=== PATIENT | female | born 1960 | race Caucasian/White ===

== ENCOUNTER 2017-07-27 19:58 | Inpatient (IN) | payer MEDICARE, BC | END 2017-07-31 15:25 | disposition home or self-care (01) | DRG 640 | LOC: D.ER 19:58 → D.SDCHOLD 07-28 01:33 → D.M2 07-28 14:42 | DX: E87.70 Fluid overload, unspecified (principal); N18.6 End stage renal disease; I12.0 Hypertensive chronic kidney disease with stage 5 chronic kidney disease or end stage renal disease; N25.81 Secondary hyperparathyroidism of renal origin; L03.116 Cellulitis of left lower limb; L03.115 Cellulitis of right lower limb; E11.22 Type 2 diabetes mellitus with diabetic chronic kidney disease; Z99.2 Dependence on renal dialysis; E83.39 Other disorders of phosphorus metabolism; D63.1 Anemia in chronic kidney disease; E83.59 Other disorders of calcium metabolism ==

== ENCOUNTER 2017-08-07 22:01 | Inpatient (IN) | payer MEDICARE, BC, MEDICAID ==
[~2017-08-07] VITALS: Ht 160 cm; Wt 90.7 kg
--- NOTE | ~2017-08-07 | OP ---
PATIENT NAME: NADIRA PERDUE MEDICAL RECORD: [id number] :58 LOCATION:D.M2 D.9 ADMISSION DATE:08/08/17 SURGEON: LLUVIA SOW MD DATE OF OPERATION: 08/08/2017 PREOPERATIVE DIAGNOSES: 1. End-stage renal disease without chronic access for hemodialysis. 2. Chondrocalcinosis. 3. Hyperkalemia. POSTOPERATIVE DIAGNOSES: 1. End-stage renal disease without chronic access for hemodialysis. 2. Chondrocalcinosis. 3. Hyperkalemia. PROCEDURE: Insertion of right neck Trialysis catheter, which is a non-tunneled, non-cuffed hemodialysis catheter. SURGEON: Lluvia Sow MD PERSONAL LINES APPRAISER: None. BLOOD LOSS: Minimal. ANESTHESIA: Local. COMPLICATIONS: None. The risks, possible complications and alternatives to procedure were explained to the patient. She elects to proceed. The discussion specifically included, but was not limited to, bleeding requiring emergency reoperation, infection, great vessel injury as well as pneumothorax. OPERATIVE COURSE: The patient was seen in her room. The entire procedure was performed in the presence of a nurse. She was positioned in the Trendelenburg position. The right neck was sterilely prepped and draped. Local anesthetic was used to infiltrate the skin and subcutaneous tissues of the right neck. The right internal jugular vein was percutaneously accessed in an antegrade fashion. A guidewire passed easily. A small skin brigida was accomplished. A vessel dilator was used to dilate a subcutaneous tract. A 15-cm triple-lumen Trialysis catheter was inserted to the hub. It was sutured in place times 3. All lumens flushed easily and aspirated dark, nonpulsatile blood. A stat portable chest x-ray is pending. TRANSINT:[id number] Voice Confirmation ID: [id number] DOCUMENT ID: [id number] OPERATIVE REPORT [id number] IRONLLUVIA MOTTA MD at 1019 CC: SABIHA GASTON MD [id number] DICTATION DATE: 08/08/172020 COMMUNITY LIAISON: 08/08/177 ADM IN [facility] [address] [place] [address]
--- NOTE | ~2017-08-07 | OP ---
PATIENT NAME: NADIRA PERDUE MEDICAL RECORD: [id number] :58 LOCATION:D.M2 D.2139 ADMISSION DATE:08/08/17 SURGEON: PANCHITO EM MD DATE OF OPERATION: 08/14/2017 PREOPERATIVE DIAGNOSES: 1. Sepsis. 2. Possible line related sepsis. 3. End-stage renal disease. 4. Diabetes mellitus. 5. Calciphylaxis. 6. Decubitus ulcers. POSTOPERATIVE DIAGNOSES: 1. Sepsis. 2. Possible line related SEPSIS. 3. End-stage renal disease. 4. Diabetes mellitus. 5. Calciphylaxis. 6. Decubitus ulcers. PROCEDURE: 1. Removal of right IJ Trialysis catheter. 2. Placement of left IJ 12-1/2-cm Trialysis catheter. SURGEON: Panchito Em MD REPORT OF PROCEDURE: The patient's indwelling right IJ Trialysis catheter was removed and pressure was applied to the area. We then prepped and draped the left side of the neck. Using ultrasound guidance, a needle was used to inject of 5 mL of 1 cc to the surrounding tissues. Then, under ultrasound guidance, we were able to cannulate the left internal jugular vein and the guidewire was advanced over this wire and the dilators were placed followed by the Trialysis catheter. The catheter aspirated nonpulsatile dark blood and flushed easily in all 3 ports. This was sutured into place with 3-0 nylons and dressed appropriately. COMPLICATIONS: None. CONDITION: Stable. ANESTHESIA: Local. BLOOD LOSS: Minimal. Procedure done at the bedside. TRANSINT:[id number] Voice Confirmation ID: [id number] DOCUMENT ID: [id number] OPERATIVE REPORT [id number] IRONJEREMIAS ZHANGPANCHITO LUTHER MD at 1319 CC: [id number] DICTATION DATE: 08/14/17 1457 ART HISTORIAN: 08/14/17 1847 DIS IN 08/20/17 [id number] [place] [address]
[~2017-08-07 22:01] MED LIST: FERRIC CITRATE210 MG PO; FOSRENOL1000 MG PO; HUMALOG 30100 UNITS/ SC; HYDRALAZINE HCL50 MG PO; LANTUS SOL100 UNIT/1 SC; METOPROLOL-HCT1 EACH PO; ROCALTROL0.5 MCG PO; SENSIPAR30 MG PO; SYNTHROID25 MCG PO
[2017-08-07 23:17] LABS: BASOPHILS 0.2 % (0-2); EOSINOPHILS 1.8 % (0-7); HEMATOCRIT 35.5 % (36.0-48.0); HEMOGLOBIN 11.6 g/dL (12-16); IMMATURE GRANULOCYTES 0.7 % (0-5); LYMPHOCYTES 6.9 % (15-50); MCH 26.5 pg (26.0-34.0); MCHC 32.7 g/dL (31.0-37.0); MCV 81.1 fL (80.0-100.0); MONOCYTES 8.9 % (2-11); NEUTROPHILS 81.5 % (40-80); PLATELET COUNT 602 10x3/uL (130-400); RBC 4.38 10x6/uL (4.00-5.40); RDW 16.8 % (11.5-14.5); WBC 14.4 10x3/uL (4.8-10.8)
[2017-08-07 23:30] LABS: ALBUMIN 1.8 g/dL (3.4-5.0); ANION GAP 25.7 mmol/L (8-16); BILIRUBIN - TOTAL 0.3 mg/dL (0.2-1.3); CALCIUM 7.9 mg/dL (8.5-10.1); CREATININE - SERUM 12.9 mg/dL (0.6-1.3); POTASSIUM - SERUM 5.7 mmol/L (3.5-5.1); PROTEIN - SERUM 7.5 g/dL (6.4-8.2)
[2017-08-08] MEDS ORDERED: HYDROCODON-ACE1 EAC7 PO (02:34)
[2017-08-08 04:07] VITALS: BP 95/74; BMI 35.5
[2017-08-08 04:47] VITALS: BP 95/74
[2017-08-08 08:10] VITALS: BP 135/48
[2017-08-08 11:31] VITALS: BP 140/52
[2017-08-08 13:42] VITALS: BMI 35.4
[2017-08-08 15:34] VITALS: BP 113/78
[2017-08-08 19:00] VITALS: BP 229/77
[2017-08-09] VITALS: BP 118/78
[2017-08-09 04:00] VITALS: BP 207/74
[2017-08-09 06:15] LABS: HEMATOCRIT 34.4 % (36.0-48.0); HEMOGLOBIN 10.9 g/dL (12-16); MCH 26.4 pg (26.0-34.0); MCHC 31.7 g/dL (31.0-37.0); MCV 83.3 fL (80.0-100.0); MEAN PLATELET VOLUME 9.3 fL (7.4-10.4); PLATELET COUNT 610 10x3/uL (130-400); RBC 4.13 10x6/uL (4.00-5.40); RDW 17.2 % (11.5-14.5); WBC 21.7 10x3/uL (4.8-10.8)
[2017-08-09 06:47] LABS: ANION GAP 26.7 mmol/L (8-16); CALCIUM 8.2 mg/dL (8.5-10.1); CARBON DIOXIDE 22.2 mmol/L (21.0-32.0); CREATININE - SERUM 14.2 mg/dL (0.6-1.3); MAGNESIUM - SERUM 2.5 mg/dL (1.8-2.4); POTASSIUM - SERUM 5.9 mmol/L (3.5-5.1)
[2017-08-09 06:53] LABS: BASOPHILS 2 % (0-2); LYMPHOCYTES 10 % (15-50); MONOCYTES 5 % (2-11); NEUTROPHILS 80 % (40-80); PLATELET ESTIMATE INCREASED
[2017-08-09 06:54] LABS: PHOSPHOROUS 15.7 mg/dL (2.5-4.9)
[2017-08-09 08:24] VITALS: BP 118/52
[2017-08-09 13:58] LABS: ANION GAP 31.8 mmol/L (8-16); CALCIUM 8.1 mg/dL (8.5-10.1); CARBON DIOXIDE 18.2 mmol/L (21.0-32.0); CREATININE - SERUM 14.3 mg/dL (0.6-1.3)
[2017-08-09 14:02] LABS: ALBUMIN 1.8 g/dL (3.4-5.0); PHOSPHOROUS 15.9 mg/dL (2.5-4.9)
[2017-08-09 15:41] VITALS: BP 134/48
[2017-08-09 20:00] VITALS: BP 133/71
[2017-08-10] VITALS: BP 134/72
[2017-08-10 04:00] VITALS: BP 130/68
[2017-08-10 05:59] LABS: BASOPHILS 0.2 % (0-2); EOSINOPHILS 0.9 % (0-7); HEMATOCRIT 31.6 % (36.0-48.0); HEMOGLOBIN 9.5 g/dL (12-16); IMMATURE GRANULOCYTES 0.7 % (0-5); LYMPHOCYTES 6.5 % (15-50); MCH 25.8 pg (26.0-34.0); MCHC 30.1 g/dL (31.0-37.0); MCV 85.9 fL (80.0-100.0); MEAN PLATELET VOLUME 9.1 fL (7.4-10.4); MONOCYTES 8.9 % (2-11); NEUTROPHILS 82.8 % (40-80); PLATELET COUNT 491 10x3/uL (130-400); RBC 3.68 10x6/uL (4.00-5.40); RDW 17.3 % (11.5-14.5); WBC 22.2 10x3/uL (4.8-10.8)
[2017-08-10 06:26] LABS: ALBUMIN 1.4 g/dL (3.4-5.0); ANION GAP 20.6 mmol/L (8-16); BILIRUBIN - TOTAL 0.3 mg/dL (0.2-1.3); CALCIUM 7.3 mg/dL (8.5-10.1); POTASSIUM - SERUM 5.2 mmol/L (3.5-5.1); PROTEIN - SERUM 5.2 g/dL (6.4-8.2)
[2017-08-10 06:27] LABS: CARBON DIOXIDE 23.6 mmol/L (21.0-32.0); CREATININE - SERUM 8.3 mg/dL (0.6-1.3)
[2017-08-10 08:42] VITALS: BP 144/75
[2017-08-10 17:20] VITALS: BP 119/60
[2017-08-10 20:00] VITALS: BP 108/52
[2017-08-11 04:00] VITALS: BP 118/62
[2017-08-11 05:42] LABS: BASOPHILS 0.2 % (0-2); EOSINOPHILS 0.2 % (0-7); HEMATOCRIT 29.5 % (36.0-48.0); HEMOGLOBIN 8.7 g/dL (12-16); LYMPHOCYTES 8.3 % (15-50); MCH 25.6 pg (26.0-34.0); MCHC 29.5 g/dL (31.0-37.0); MCV 86.8 fL (80.0-100.0); MEAN PLATELET VOLUME 9.6 fL (7.4-10.4); MONOCYTES 7.5 % (2-11); NEUTROPHILS 82.8 % (40-80); PLATELET COUNT 454 10x3/uL (130-400); RDW 17.2 % (11.5-14.5); WBC 17.2 10x3/uL (4.8-10.8)
[2017-08-11 06:12] LABS: ANION GAP 17.3 mmol/L (8-16); CALCIUM 7.7 mg/dL (8.5-10.1); CARBON DIOXIDE 26.5 mmol/L (21.0-32.0); CREATININE - SERUM 5.5 mg/dL (0.6-1.3); PHOSPHOROUS 7.9 mg/dL (2.5-4.9); POTASSIUM - SERUM 4.8 mmol/L (3.5-5.1); VANCOMYCIN - RANDOM 18.3 ug/mL (10.0-20.0)
[2017-08-11 08:30] VITALS: BP 156/46
[2017-08-11 16:02] VITALS: BP 203/86
[2017-08-11 17:16] VITALS: BP 156/67
[2017-08-11 20:00] VITALS: BP 109/41
[2017-08-12] VITALS: BP 118/58
[2017-08-12 04:00] VITALS: BP 122/83
[2017-08-12 06:19] LABS: BASOPHILS 0.2 % (0-2); EOSINOPHILS 0.3 % (0-7); HEMATOCRIT 30.5 % (36.0-48.0); IMMATURE GRANULOCYTES 1.1 % (0-5); LYMPHOCYTES 7.3 % (15-50); MCH 25.6 pg (26.0-34.0); MCHC 29.5 g/dL (31.0-37.0); MCV 86.9 fL (80.0-100.0); MEAN PLATELET VOLUME 9.2 fL (7.4-10.4); MONOCYTES 9.1 % (2-11); PLATELET COUNT 484 10x3/uL (130-400); RBC 3.51 10x6/uL (4.00-5.40); RDW 17.2 % (11.5-14.5); WBC 19.5 10x3/uL (4.8-10.8)
[2017-08-12 06:44] LABS: % SATURATION 13 % (15-55); IRON 10 ug/dl (35-150); TOTAL IRON BIND CAPACITY 75 ug/dl (260-445); UNSAT IRON BIND CAPACITY 65 ug/dl (150-375)
[2017-08-12 07:09] LABS: ANION GAP 14.6 mmol/L (8-16); CALCIUM 8.4 mg/dL (8.5-10.1); CARBON DIOXIDE 26.5 mmol/L (21.0-32.0); CREATININE - SERUM 4.5 mg/dL (0.6-1.3); POTASSIUM - SERUM 4.1 mmol/L (3.5-5.1); VANCOMYCIN - RANDOM 29.3 ug/mL (10.0-20.0)
[2017-08-12 07:13] LABS: PHOSPHOROUS 5.9 mg/dL (2.5-4.9)
[2017-08-12 08:05] VITALS: BP 136/55
[2017-08-12 16:02] VITALS: BP 227/85
[2017-08-12 19:00] VITALS: BP 196/52
[2017-08-13] VITALS: BP 126/60
[2017-08-13 03:35] VITALS: BP 185/68
[2017-08-13 04:39] LABS: BASOPHILS 0.2 % (0-2); EOSINOPHILS 0.8 % (0-7); HEMATOCRIT 30.2 % (36.0-48.0); HEMOGLOBIN 9.1 g/dL (12-16); IMMATURE GRANULOCYTES 1.5 % (0-5); LYMPHOCYTES 9.4 % (15-50); MCH 25.6 pg (26.0-34.0); MCHC 30.1 g/dL (31.0-37.0); MCV 85.1 fL (80.0-100.0); MEAN PLATELET VOLUME 9.2 fL (7.4-10.4); MONOCYTES 10.9 % (2-11); NEUTROPHILS 77.2 % (40-80); PLATELET COUNT 426 10x3/uL (130-400); RBC 3.55 10x6/uL (4.00-5.40); RDW 17.1 % (11.5-14.5)
[2017-08-13 05:09] LABS: ANION GAP 18.5 mmol/L (8-16); CALCIUM 8.3 mg/dL (8.5-10.1); CARBON DIOXIDE 25.1 mmol/L (21.0-32.0); CREATININE - SERUM 3.8 mg/dL (0.6-1.3); PHOSPHOROUS 4.5 mg/dL (2.5-4.9); POTASSIUM - SERUM 3.6 mmol/L (3.5-5.1); VANCOMYCIN - RANDOM 20.1 ug/mL (10.0-20.0)
[2017-08-13 07:59] VITALS: BP 122/90
[2017-08-13 11:12] VITALS: BP 175/63
[2017-08-13 15:11] VITALS: BP 140/56
[2017-08-14] VITALS: BP 166/64
[2017-08-14 04:00] VITALS: BP 164/78
[2017-08-14 06:24] LABS: BASOPHILS 0.2 % (0-2); EOSINOPHILS 0.6 % (0-7); HEMATOCRIT 31.6 % (36.0-48.0); HEMOGLOBIN 9.4 g/dL (12-16); IMMATURE GRANULOCYTES 1.9 % (0-5); MCH 25.5 pg (26.0-34.0); MCHC 29.7 g/dL (31.0-37.0); MCV 85.9 fL (80.0-100.0); MEAN PLATELET VOLUME 9.4 fL (7.4-10.4); MONOCYTES 13.2 % (2-11); NEUTROPHILS 71.1 % (40-80); PLATELET COUNT 454 10x3/uL (130-400); RBC 3.68 10x6/uL (4.00-5.40); RDW 17.2 % (11.5-14.5); WBC 11.9 10x3/uL (4.8-10.8)
[2017-08-14 06:37] LABS: ANION GAP 16.8 mmol/L (8-16); BILIRUBIN - DIRECT 0.21 mg/dL (0.00-0.30); BILIRUBIN - INDIRECT 0.25 mg/dL (0.00-1.00); BILIRUBIN - TOTAL 0.46 mg/dL (0.2-1.3); CALCIUM 8.2 mg/dL (8.5-10.1); CARBON DIOXIDE 26.6 mmol/L (21.0-32.0); CREATININE - SERUM 3.6 mg/dL (0.6-1.3); PHOSPHOROUS 4.6 mg/dL (2.5-4.9); POTASSIUM - SERUM 3.4 mmol/L (3.5-5.1); PROTEIN - SERUM 6.7 g/dL (6.4-8.2); VANCOMYCIN - RANDOM 16.1 ug/mL (10.0-20.0)
[2017-08-14 06:40] LABS: ALBUMIN 1.2 g/dL (3.4-5.0)
[2017-08-14 08:53] VITALS: BP 227/80
[2017-08-14 09:44] VITALS: Ht 160 cm; Wt 90.7 kg
[2017-08-14 11:54] LABS: APPEARANCE HAZY (CLEAR); BILIRUBIN NEGATIVE (NEGATIVE); COLOR YELLOW (YELLOW); GLUCOSE 250 mg/dL (NEGATIVE); KETONE NEGATIVE (NEGATIVE); NITRITE NEGATIVE (NEGATIVE); PROTEIN 3+ mg/dL (NEGATIVE); SPECIFIC GRAVITY 1.015 (1.005-1.020); UROBILINOGEN NORMAL (NORMAL)
[2017-08-14 11:55] LABS: AMORPHOUS SEDIMENT <1+ /lpf (NONE SEEN); BACTERIA MODERATE /hpf (NONE SEEN); EPITHELIAL CELLS OCC /hpf (0-5); MUCUS <1+ /lpf (NONE SEEN); WHITE CELLS - URINE 0-5 /hpf (0-5)
[2017-08-14 13:36] VITALS: BP 178/70
[2017-08-14 16:27] VITALS: BP 93/49
[2017-08-14 20:00] VITALS: BP 168/67
[2017-08-15] VITALS: BP 211/76
[2017-08-15 04:00] VITALS: BP 161/64
[2017-08-15 06:20] LABS: BASOPHILS 0.3 % (0-2); EOSINOPHILS 0.6 % (0-7); HEMATOCRIT 29.5 % (36.0-48.0); HEMOGLOBIN 8.9 g/dL (12-16); LYMPHOCYTES 15.2 % (15-50); MCHC 30.2 g/dL (31.0-37.0); MCV 86.3 fL (80.0-100.0); MEAN PLATELET VOLUME 9.4 fL (7.4-10.4); NEUTROPHILS 69.9 % (40-80); PLATELET COUNT 419 10x3/uL (130-400); RBC 3.42 10x6/uL (4.00-5.40); RDW 17.4 % (11.5-14.5); WBC 11.4 10x3/uL (4.8-10.8)
[2017-08-15 06:23] LABS: ANION GAP 19.4 mmol/L (8-16); CALCIUM 7.6 mg/dL (8.5-10.1); CARBON DIOXIDE 24.2 mmol/L (21.0-32.0); CREATININE - SERUM 5.2 mg/dL (0.6-1.3); PHOSPHOROUS 5.6 mg/dL (2.5-4.9); POTASSIUM - SERUM 3.6 mmol/L (3.5-5.1); VANCOMYCIN - RANDOM 30.4 ug/mL (10.0-20.0)
[2017-08-15 07:45] VITALS: BP 176/74
[2017-08-15 11:03] VITALS: BP 176/74
[2017-08-15 14:58] VITALS: BP 164/78
[2017-08-15 21:40] VITALS: BP 155/57
[2017-08-16 00:47] VITALS: BP 164/67
[2017-08-16 06:44] VITALS: BP 169/67
[2017-08-16 08:11] VITALS: BP 110/64
[2017-08-16 09:26] LABS: BASOPHILS 0.2 % (0-2); EOSINOPHILS 0.6 % (0-7); HEMATOCRIT 30.6 % (36.0-48.0); HEMOGLOBIN 9.2 g/dL (12-16); IMMATURE GRANULOCYTES 1.7 % (0-5); LYMPHOCYTES 15.8 % (15-50); MCH 25.9 pg (26.0-34.0); MCHC 30.1 g/dL (31.0-37.0); MCV 86.2 fL (80.0-100.0); MEAN PLATELET VOLUME 9.6 fL (7.4-10.4); MONOCYTES 10.6 % (2-11); NEUTROPHILS 71.1 % (40-80); PLATELET COUNT 394 10x3/uL (130-400); RBC 3.55 10x6/uL (4.00-5.40); WBC 11.5 10x3/uL (4.8-10.8)
[2017-08-16 09:36] LABS: ANION GAP 18.8 mmol/L (8-16); CALCIUM 7.4 mg/dL (8.5-10.1); CARBON DIOXIDE 23.6 mmol/L (21.0-32.0); CREATININE - SERUM 4.9 mg/dL (0.6-1.3); POTASSIUM - SERUM 3.4 mmol/L (3.5-5.1)
[2017-08-16 11:26] VITALS: BP 118/68
[2017-08-16 16:53] VITALS: BP 150/66
[2017-08-17 06:00] VITALS: BP 126/68
[2017-08-17 06:58] LABS: BASOPHILS 0.2 % (0-2); EOSINOPHILS 0.6 % (0-7); HEMATOCRIT 32.9 % (36.0-48.0); HEMOGLOBIN 9.9 g/dL (12-16); IMMATURE GRANULOCYTES 1.3 % (0-5); LYMPHOCYTES 12.9 % (15-50); MCH 25.6 pg (26.0-34.0); MCHC 30.1 g/dL (31.0-37.0); MEAN PLATELET VOLUME 10.1 fL (7.4-10.4); MONOCYTES 9.5 % (2-11); NEUTROPHILS 75.5 % (40-80); PLATELET COUNT 448 10x3/uL (130-400); RBC 3.87 10x6/uL (4.00-5.40); RDW 17.4 % (11.5-14.5); WBC 13.8 10x3/uL (4.8-10.8)
[2017-08-17 07:10] LABS: CALCIUM 7.7 mg/dL (8.5-10.1); CARBON DIOXIDE 23.5 mmol/L (21.0-32.0); POTASSIUM - SERUM 3.5 mmol/L (3.5-5.1)
[2017-08-17 07:16] LABS: CREATININE - SERUM 6.3 mg/dL (0.6-1.3)
[2017-08-17 07:50] VITALS: BP 181/82
[2017-08-17 08:29] VITALS: BP 181/82
[2017-08-17 15:11] VITALS: BP 183/80
[2017-08-17 20:00] VITALS: BP 226/61
[2017-08-18] VITALS (8 sets, daily range): BP systolic 100–202; BP diastolic 57–80
[2017-08-18 08:17] LABS: BASOPHILS 0.1 % (0-2); EOSINOPHILS 0.1 % (0-7); HEMATOCRIT 29.7 % (36.0-48.0); HEMOGLOBIN 8.9 g/dL (12-16); IMMATURE GRANULOCYTES 0.7 % (0-5); LYMPHOCYTES 8.9 % (15-50); MCH 25.6 pg (26.0-34.0); MCV 85.6 fL (80.0-100.0); MONOCYTES 6.4 % (2-11); NEUTROPHILS 83.8 % (40-80); PLATELET COUNT 451 10x3/uL (130-400); RBC 3.47 10x6/uL (4.00-5.40); RDW 17.6 % (11.5-14.5)
[2017-08-18 08:18] LABS: WBC 17.7 10x3/uL (4.8-10.8)
[2017-08-18 08:31] LABS: ANION GAP 21.8 mmol/L (8-16); CALCIUM 7.8 mg/dL (8.5-10.1); CARBON DIOXIDE 22.7 mmol/L (21.0-32.0); CREATININE - SERUM 5.5 mg/dL (0.6-1.3); PHOSPHOROUS 6.5 mg/dL (2.5-4.9); POTASSIUM - SERUM 3.5 mmol/L (3.5-5.1); VANCOMYCIN - RANDOM 30.2 ug/mL (10.0-20.0)
[2017-08-19] VITALS: BP 148/66
[2017-08-19 04:00] VITALS: BP 156/59
[2017-08-19 06:31] LABS: BASOPHILS 0.1 % (0-2); EOSINOPHILS 0.9 % (0-7); IMMATURE GRANULOCYTES 0.7 % (0-5); LYMPHOCYTES 10.2 % (15-50); MCH 25.6 pg (26.0-34.0); MCV 85.2 fL (80.0-100.0); MEAN PLATELET VOLUME 9.5 fL (7.4-10.4); MONOCYTES 6.3 % (2-11); NEUTROPHILS 81.8 % (40-80); PLATELET COUNT 415 10x3/uL (130-400); RBC 3.52 10x6/uL (4.00-5.40); RDW 17.5 % (11.5-14.5); WBC 19.4 10x3/uL (4.8-10.8)
[2017-08-19 06:56] LABS: ALBUMIN 1.8 g/dL (3.4-5.0); ANION GAP 21.5 mmol/L (8-16); BILIRUBIN - DIRECT 0.23 mg/dL (0.00-0.30); BILIRUBIN - INDIRECT 0.37 mg/dL (0.00-1.00); BILIRUBIN - TOTAL 0.6 mg/dL (0.2-1.3); CREATININE - SERUM 6.5 mg/dL (0.6-1.3); PHOSPHOROUS 6.5 mg/dL (2.5-4.9); POTASSIUM - SERUM 3.5 mmol/L (3.5-5.1); PROTEIN - SERUM 6.7 g/dL (6.4-8.2)
[2017-08-19 08:37] VITALS: BP 166/74
[2017-08-19 16:35] VITALS: BP 168/75
[2017-08-19 21:41] VITALS: BP 158/61
[2017-08-20 00:41] VITALS: BP 118/64
[2017-08-20 05:32] VITALS: BP 165/64
[2017-08-20 06:43] LABS: BASOPHILS 0.2 % (0-2); EOSINOPHILS 0.8 % (0-7); HEMATOCRIT 29.4 % (36.0-48.0); HEMOGLOBIN 8.9 g/dL (12-16); LYMPHOCYTES 9.6 % (15-50); MCH 25.4 pg (26.0-34.0); MCHC 30.3 g/dL (31.0-37.0); MONOCYTES 6.8 % (2-11); NEUTROPHILS 81.6 % (40-80); PLATELET COUNT 386 10x3/uL (130-400); RDW 17.4 % (11.5-14.5); WBC 19.8 10x3/uL (4.8-10.8)
[2017-08-20 07:06] LABS: ANION GAP 23.1 mmol/L (8-16); CARBON DIOXIDE 21.5 mmol/L (21.0-32.0); CREATININE - SERUM 7.3 mg/dL (0.6-1.3); PHOSPHOROUS 5.5 mg/dL (2.5-4.9); POTASSIUM - SERUM 3.6 mmol/L (3.5-5.1); VANCOMYCIN - RANDOM 22.5 ug/mL (10.0-20.0)
[2017-08-20 07:33] VITALS: BP 122/68
[2017-08-20] MEDS ORDERED: BENADRYL INJ50 MG/ML IV (11:02)
[2017-08-20] MEDS ORDERED: VANCOMYCIN250 MG/51 PO (11:03)
[2017-08-20] MEDS ORDERED: PROCRIT/EP10000 UNIT SC (11:03)
[2017-08-20] MEDS ORDERED: BUMINATE50 ML IV (11:03)
[2017-08-20] MEDS ORDERED: LOVENOX60 MG/0.6 SC (11:03)
[2017-08-20] MEDS ORDERED: DIFLUCAN100 MG PO (11:03)
[2017-08-20] MEDS ORDERED: FLAGYL250 MG PO (11:03)
[2017-08-20] MEDS ORDERED: HEPARIN SO1000 UNIT/ INJ (11:04)
[2017-08-20] MEDS ORDERED: HEPARIN SO1000 UNIT/ IV (11:04)
[2017-08-20] MEDS ORDERED: HYDROCODONE-APA1 TAB PO (11:05)
[2017-08-20] MEDS ORDERED: ACETAMINOPHEN325 MG PO (11:05)
[2017-08-20] MEDS ORDERED: NALOXONE HC0.4 MG/M2 IV (11:06)
[2017-08-20] MEDS ORDERED: RENVELA2.4 GM PO (11:06)
[2017-08-20] MEDS ORDERED: FLORAJEN3 CAPS460 MG PO (11:06)
[2017-08-20] MEDS ORDERED: LOPERAMIDE HCL2 MG PO (11:06)
[2017-08-20] MEDS ORDERED: ONDANSETRON4 MG/2 M3 IV (11:06)
[2017-08-20] MEDS ORDERED: LANTUS INSULIN10 ML SC (11:07)
[2017-08-20] MEDS ORDERED: HUMALOG 30100 UNITS/ SC (11:07)
[2017-08-20] MEDS ORDERED: SENSIPAR30 MG PO (11:09)
[2017-08-20] MEDS ORDERED: NEPHRO-VITE RX1 TAB PO (11:09)
[2017-08-20] MEDS ORDERED: SODIUM THIOSULFATE IV (11:09)
[2017-08-20] MEDS ORDERED: CALMOSEPTINE OI71 GM TOPICAL (11:09)
[2017-08-20] MEDS ORDERED: MYCELEX TROCHE10 MG MM (11:09)
[2017-08-20 11:31] VITALS: BP 185/80
[2017-08-20 15:56] VITALS: BP 173/76
== END 2017-08-20 17:40 | disposition short-term general hospital (02) | DRG 682 ==
LOC: D.ER 22:01 → D.M2 08-08 01:17
PROVIDERS: Emergency Medicine; Internal Medicine Nephrology; Physician Assistant
PROC: 05HM33Z Insertion of Infusion Device into Right Internal Jugular Vein, Percutaneous Approach (ICD-10-PCS; principal; 2017-08-08)
PROC: 05PY3YZ Removal of Other Device from Upper Vein, Percutaneous Approach (ICD-10-PCS; 2017-08-14)
PROC: 05HN33Z Insertion of Infusion Device into Left Internal Jugular Vein, Percutaneous Approach (ICD-10-PCS; 2017-08-14)
DX: I12.0 Hypertensive chronic kidney disease with stage 5 chronic kidney disease or end stage renal disease (principal); N18.6 End stage renal disease; M80.052A Age-related osteoporosis with current pathological fracture, left femur, initial encounter for fracture; M80.062A Age-related osteoporosis with current pathological fracture, left lower leg, initial encounter for fracture; A04.72 Enterocolitis due to Clostridium difficile, not specified as recurrent; L03.116 Cellulitis of left lower limb; L03.115 Cellulitis of right lower limb; E11.22 Type 2 diabetes mellitus with diabetic chronic kidney disease; E87.5 Hyperkalemia; N28.89 Other specified disorders of kidney and ureter; E83.59 Other disorders of calcium metabolism

== ENCOUNTER 2017-09-27 03:34 | Inpatient (IN) | payer MEDICARE, BC, MEDICAID ==
[~2017-09-27] VITALS: Ht 160 cm; Wt 101.8 kg
--- NOTE | ~2017-09-27 | CN ---
PATIENT NAME:NADIRA PERDUE MEDICAL RECORD: [id number] : 58 LOCATION:D.M2 D.2121 ADMIT DATE: 09/27/17 ACCOUNT: [id number] CONSULTING PHYSICIAN: LLUVIA SOW MD REFERRING PHYSICIAN: GIA MACKENZIE MD DATE OF CONSULTATION: 09/27/2017 CONSULTATION NOTE ADDENDUM CHIEF COMPLAINT: Pain. HISTORY OF PRESENT ILLNESS: I saw this patient when she was in the hospital last time. The patient has calciphylaxis and has large areas of calcium deposits involving the lower abdomen, buttocks as well as both lower extremities. She developed some bleeding from the calf. The patient has now developed large eschars overlying the calcium deposits. I believe that debridement would be counterproductive and would likely lead to more bleeding. I would recommend local wound care. The patient has been seen by Dr. Terese carr at the [facility] in the wound care center. Palpation aggravates. Nothing alleviates. She describes her symptoms as severe. For the typed portion of the consult note, please see the chart. The typed portion of the consult note would include the past medical and surgical history, current medications, allergies, social history as well as family history. REVIEW OF SYSTEMS: No nausea, no vomiting, no fever, no chills. Positive for lower abdominal pain. Positive for lower extremity pain. Positive for drainage. PHYSICAL EXAMINATION: GENERAL: The patient appears acutely ill. Also appears chronically ill. VITAL SIGNS: Reviewed. EARS: External ears appear normal. EYES: Extraocular movements are intact. NECK: Trachea is midline. CHEST: No intercostal retractions. PULMONARY: Nonlabored, no stridor. ABDOMEN: No peritonitis with movement. EXTREMITIES: No peripheral cyanosis. Draining wounds as described above. INTEGUMENT: Draining wounds. Multiple large eschars overlying the areas of calciphylaxis. BACK: No thoracic kyphosis. IMPRESSION: Draining wound in a patient with large calcium deposits due to calciphylaxis. PLAN: I would recommend no debridement at this time. TRANSINT:[id number] Voice Confirmation ID: [id number] DOCUMENT ID: [id number] CONSULT REPORT [id number] NADIRA PERDUE ROBERT MD at 2254 CC: [id number] DICTATION DATE: 09/29/17 4916 CONVEYOR CONSOLE OPERATOR: 09/29/172034 DIS IN 10/04/17 [facility] [address] [place] [address]
[~2017-09-27 03:34] MED LIST changes: +ACETAMINOPHEN325 MG PO; +BENADRYL INJ50 MG/ML IV; +BUMINATE50 ML IV; +CALMOSEPTINE OI71 GM TOPICAL; +DIFLUCAN100 MG PO; +FLAGYL250 MG PO; +FLORAJEN3 CAPS460 MG PO; +HEPARIN SO1000 UNIT/ INJ; +HEPARIN SO1000 UNIT/ IV; +HYDROCODON-ACE1 EAC7 PO; +HYDROCODONE-APA1 TAB PO; +LANTUS INSULIN10 ML SC; +LOPERAMIDE HCL2 MG PO; +LOVENOX60 MG/0.6 SC; +MYCELEX TROCHE10 MG MM; +NALOXONE HC0.4 MG/M2 IV; +NEPHRO-VITE RX1 TAB PO; +ONDANSETRON4 MG/2 M3 IV; +PROCRIT/EP10000 UNIT SC; +RENVELA2.4 GM PO; +SODIUM THIOSULFATE IV; +VANCOMYCIN250 MG/51 PO
[2017-09-27 04:24] LABS: BASOPHILS 0.2 % (0-2); EOSINOPHILS 0.8 % (0-7); HEMATOCRIT 24.1 % (36.0-48.0); HEMOGLOBIN 7.9 g/dL (12-16); IMMATURE GRANULOCYTES 3.9 % (0-5); LYMPHOCYTES 11.3 % (15-50); MCH 27.2 pg (26.0-34.0); MCHC 32.8 g/dL (31.0-37.0); MCV 83.1 fL (80.0-100.0); MEAN PLATELET VOLUME 9.4 fL (7.4-10.4); MONOCYTES 7.8 % (2-11); PLATELET COUNT 449 10x3/uL (130-400); RDW 18.4 % (11.5-14.5); WBC 18.1 10x3/uL (4.8-10.8)
[2017-09-27 04:36] LABS: INR 1.43 (0.85-1.17)
[2017-09-27 04:43] LABS: ALBUMIN 1.3 g/dL (3.4-5.0); ANION GAP 20.6 mmol/L (8-16); BILIRUBIN - TOTAL 0.82 mg/dL (0.2-1.3); CARBON DIOXIDE 21.9 mmol/L (21.0-32.0); CREATININE - SERUM 4.8 mg/dL (0.6-1.3); POTASSIUM - SERUM 5.5 mmol/L (3.5-5.1); PROTEIN - SERUM 6.2 g/dL (6.4-8.2)
[2017-09-27 04:45] LABS: CALCIUM 6.3 mg/dL (8.5-10.1)
[2017-09-27 08:37] VITALS: BP 140/65
[2017-09-27 12:00] VITALS: BP 131/68
[2017-09-27 15:37] VITALS: BP 116/62
[2017-09-27 20:00] VITALS: BP 156/62
[2017-09-28] VITALS: BP 151/69
[2017-09-28 04:00] VITALS: BP 149/50
[2017-09-28 06:09] LABS: BASOPHILS 0.3 % (0-2); EOSINOPHILS 0.8 % (0-7); HEMATOCRIT 21.9 % (36.0-48.0); LYMPHOCYTES 13.6 % (15-50); MCH 27.1 pg (26.0-34.0); MCV 84.9 fL (80.0-100.0); MEAN PLATELET VOLUME 9.8 fL (7.4-10.4); MONOCYTES 8.2 % (2-11); NEUTROPHILS 73.1 % (40-80); PLATELET COUNT 467 10x3/uL (130-400); RBC 2.58 10x6/uL (4.00-5.40); RDW 18.4 % (11.5-14.5); WBC 16.9 10x3/uL (4.8-10.8)
[2017-09-28 06:39] LABS: ALBUMIN 1.2 g/dL (3.4-5.0); ANION GAP 21.3 mmol/L (8-16); BILIRUBIN - TOTAL 0.75 mg/dL (0.2-1.3); CARBON DIOXIDE 21.2 mmol/L (21.0-32.0); CREATININE - SERUM 5.9 mg/dL (0.6-1.3); MAGNESIUM - SERUM 2.9 mg/dL (1.8-2.4); PHOSPHOROUS 5.7 mg/dL (2.5-4.9); POTASSIUM - SERUM 5.5 mmol/L (3.5-5.1); PROTEIN - SERUM 5.8 g/dL (6.4-8.2)
[2017-09-28 06:45] LABS: CALCIUM 6.1 mg/dL (8.5-10.1)
[2017-09-28 08:25] VITALS: BP 102/57
[2017-09-28 11:02] VITALS: BP 132/69
[2017-09-28 13:33] VITALS: Ht 160 cm; Wt 101.8 kg
[2017-09-28 16:23] VITALS: BP 136/74
[2017-09-28 19:00] VITALS: BP 110/65
[2017-09-29] VITALS: BP 129/93
[2017-09-29 04:00] VITALS: BP 98/62
[2017-09-29 05:18] LABS: BASOPHILS 0.3 % (0-2); EOSINOPHILS 0.3 % (0-7); IMMATURE GRANULOCYTES 3.2 % (0-5); LYMPHOCYTES 13.5 % (15-50); MCH 28.4 pg (26.0-34.0); MCHC 33.1 g/dL (31.0-37.0); MCV 85.9 fL (80.0-100.0); MEAN PLATELET VOLUME 10.3 fL (7.4-10.4); MONOCYTES 7.9 % (2-11); NEUTROPHILS 74.8 % (40-80); PLATELET COUNT 450 10x3/uL (130-400); RDW 17.3 % (11.5-14.5); WBC 19.7 10x3/uL (4.8-10.8)
[2017-09-29 05:21] LABS: HEMATOCRIT 28.1 % (36.0-48.0); HEMOGLOBIN 9.3 g/dL (12-16); RBC 3.27 10x6/uL (4.00-5.40)
[2017-09-29 05:38] LABS: % SATURATION 17 % (15-55); IRON 14 ug/dl (35-150); TOTAL IRON BIND CAPACITY 82 ug/dl (260-445); UNSAT IRON BIND CAPACITY 68 ug/dl (150-375)
[2017-09-29 05:49] LABS: CARBON DIOXIDE 22.9 mmol/L (21.0-32.0); PHOSPHOROUS 4.8 mg/dL (2.5-4.9)
[2017-09-29 06:06] LABS: ANION GAP 17.4 mmol/L (8-16); CALCIUM 6.9 mg/dL (8.5-10.1); CREATININE - SERUM 4.4 mg/dL (0.6-1.3); POTASSIUM - SERUM 4.3 mmol/L (3.5-5.1)
[2017-09-29 08:07] VITALS: BP 164/71
[2017-09-29 10:46] VITALS: BP 150/73
[2017-09-29 15:33] VITALS: BP 161/78
[2017-09-29 20:00] VITALS: BP 109/67
[2017-09-30 04:00] VITALS: BP 144/75
[2017-09-30 05:51] LABS: BASOPHILS 0.2 % (0-2); EOSINOPHILS 0.7 % (0-7); HEMATOCRIT 24.7 % (36.0-48.0); HEMOGLOBIN 8.2 g/dL (12-16); IMMATURE GRANULOCYTES 3.3 % (0-5); MCH 28.3 pg (26.0-34.0); MCHC 33.2 g/dL (31.0-37.0); MCV 85.2 fL (80.0-100.0); MEAN PLATELET VOLUME 10.1 fL (7.4-10.4); MONOCYTES 7.8 % (2-11); PLATELET COUNT 448 10x3/uL (130-400); RDW 17.5 % (11.5-14.5); WBC 18.1 10x3/uL (4.8-10.8)
[2017-09-30 06:20] LABS: ANION GAP 21.8 mmol/L (8-16); CARBON DIOXIDE 22.6 mmol/L (21.0-32.0); CREATININE - SERUM 5.5 mg/dL (0.6-1.3); PHOSPHOROUS 5.5 mg/dL (2.5-4.9); POTASSIUM - SERUM 4.4 mmol/L (3.5-5.1)
[2017-09-30 06:28] LABS: CALCIUM 6.5 mg/dL (8.5-10.1)
[2017-09-30 08:29] VITALS: BP 119/57
[2017-09-30] MEDS ORDERED: LYRICA75 MG PO (09:13)
[2017-09-30 12:24] LABS: APPEARANCE CLOUDY (CLEAR); BILIRUBIN NEGATIVE (NEGATIVE); COLOR YELLOW (YELLOW); GLUCOSE NEGATIVE (NEGATIVE); KETONE NEGATIVE (NEGATIVE); NITRITE NEGATIVE (NEGATIVE); PROTEIN 1+ mg/dL (NEGATIVE); RED CELLS - URINE 0-5 /hpf (0-5); UROBILINOGEN NORMAL (NORMAL); WHITE CELLS - URINE >50 /hpf (0-5)
[2017-09-30 12:25] LABS: BACTERIA MANY /hpf (NONE SEEN); EPITHELIAL CELLS RARE /hpf (0-5); MUCUS <1+ /lpf (NONE SEEN)
[2017-09-30 18:39] VITALS: BP 162/61
[2017-09-30 19:00] VITALS: BP 140/74
[2017-10-01 04:00] VITALS: BP 152/85
[2017-10-01 06:28] LABS: BASOPHILS 0.3 % (0-2); EOSINOPHILS 0.9 % (0-7); HEMOGLOBIN 9.8 g/dL (12-16); IMMATURE GRANULOCYTES 1.7 % (0-5); LYMPHOCYTES 11.6 % (15-50); MCH 28.2 pg (26.0-34.0); MCHC 32.8 g/dL (31.0-37.0); MCV 85.9 fL (80.0-100.0); MEAN PLATELET VOLUME 10.2 fL (7.4-10.4); NEUTROPHILS 78.5 % (40-80); PLATELET COUNT 470 10x3/uL (130-400); RBC 3.48 10x6/uL (4.00-5.40); RDW 17.9 % (11.5-14.5); WBC 19.7 10x3/uL (4.8-10.8)
[2017-10-01 06:37] LABS: HEMATOCRIT 29.9 % (36.0-48.0)
[2017-10-01 06:54] LABS: ANION GAP 17.3 mmol/L (8-16); CALCIUM 7.4 mg/dL (8.5-10.1); CARBON DIOXIDE 26.1 mmol/L (21.0-32.0); PHOSPHOROUS 4.4 mg/dL (2.5-4.9); VANCOMYCIN - RANDOM 17.1 ug/mL (10.0-20.0)
[2017-10-01 07:07] LABS: CREATININE - SERUM 4.1 mg/dL (0.6-1.3); POTASSIUM - SERUM 3.4 mmol/L (3.5-5.1)
[2017-10-01 08:36] VITALS: BP 168/66
[2017-10-01 11:52] VITALS: BP 170/64
[2017-10-01 15:40] VITALS: BP 137/44
[2017-10-01 20:00] VITALS: BP 176/66
[2017-10-02] VITALS: BP 178/71
[2017-10-02 05:31] LABS: BASOPHILS 0.3 % (0-2); EOSINOPHILS 1.3 % (0-7); HEMATOCRIT 27.1 % (36.0-48.0); HEMOGLOBIN 8.8 g/dL (12-16); IMMATURE GRANULOCYTES 2.8 % (0-5); LYMPHOCYTES 13.6 % (15-50); MCH 27.8 pg (26.0-34.0); MCHC 32.5 g/dL (31.0-37.0); MCV 85.5 fL (80.0-100.0); MEAN PLATELET VOLUME 9.8 fL (7.4-10.4); MONOCYTES 7.3 % (2-11); NEUTROPHILS 74.7 % (40-80); PLATELET COUNT 471 10x3/uL (130-400); RBC 3.17 10x6/uL (4.00-5.40); RDW 17.7 % (11.5-14.5); WBC 18.6 10x3/uL (4.8-10.8)
[2017-10-02 05:50] VITALS: BP 136/53
[2017-10-02 05:52] LABS: ANION GAP 18.9 mmol/L (8-16); CARBON DIOXIDE 24.6 mmol/L (21.0-32.0); PHOSPHOROUS 4.9 mg/dL (2.5-4.9); POTASSIUM - SERUM 4.5 mmol/L (3.5-5.1)
[2017-10-02] MEDS ORDERED: TOPROL XL100 MG PO (07:32)
[2017-10-02] MEDS ORDERED: HYDRALAZINE HCL50 MG PO (07:32)
[2017-10-02 08:16] VITALS: BP 202/82
[2017-10-02 15:20] VITALS: BP 149/55
[2017-10-02 19:00] VITALS: BP 169/62
[2017-10-03] VITALS: BP 147/72
[2017-10-03 04:00] VITALS: BP 103/69
[2017-10-03 08:52] VITALS: BP 150/62
[2017-10-03] MEDS ORDERED: MEGACE400 MG/10 PO (09:09)
[2017-10-03] MEDS ORDERED: AMOXIL250 M1 PO (09:13)
[2017-10-03] MEDS ORDERED: MONODOX100 MG PO (09:15)
[2017-10-03 09:35] LABS: BASOPHILS 0.5 % (0-2); EOSINOPHILS 1.4 % (0-7); HEMOGLOBIN 9.4 g/dL (12-16); IMMATURE GRANULOCYTES 4.3 % (0-5); LYMPHOCYTES 14.5 % (15-50); MCH 27.8 pg (26.0-34.0); MCHC 32.4 g/dL (31.0-37.0); MCV 85.8 fL (80.0-100.0); MEAN PLATELET VOLUME 9.7 fL (7.4-10.4); MONOCYTES 6.5 % (2-11); NEUTROPHILS 72.8 % (40-80); PLATELET COUNT 477 10x3/uL (130-400); RBC 3.38 10x6/uL (4.00-5.40); RDW 17.8 % (11.5-14.5); WBC 18.9 10x3/uL (4.8-10.8)
[2017-10-03 09:57] LABS: ANION GAP 20.4 mmol/L (8-16); CALCIUM 7.3 mg/dL (8.5-10.1); CARBON DIOXIDE 23.5 mmol/L (21.0-32.0); CREATININE - SERUM 4.1 mg/dL (0.6-1.3); PHOSPHOROUS 3.9 mg/dL (2.5-4.9); POTASSIUM - SERUM 3.9 mmol/L (3.5-5.1)
[2017-10-03 16:21] VITALS: BP 186/72
[2017-10-03 20:06] VITALS: BP 152/58
[2017-10-04] VITALS: BP 176/67
[2017-10-04 05:22] VITALS: BP 184/75
[2017-10-04 08:15] VITALS: BP 189/71
[2017-10-04 11:53] VITALS: BP 173/68
== END 2017-10-04 13:32 | disposition home health service (06) | DRG 606 ==
LOC: D.ER 03:34 → D.MS 05:44 → D.M2 05:44
PROVIDERS: Family Medicine; Internal Medicine Nephrology
PROC: 5A1D70Z Performance of Urinary Filtration, Intermittent, Less than 6 Hours Per Day (ICD-10-PCS; principal; 2017-09-27)
DX: L94.2 Calcinosis cutis (principal); N18.6 End stage renal disease; I12.0 Hypertensive chronic kidney disease with stage 5 chronic kidney disease or end stage renal disease; E11.22 Type 2 diabetes mellitus with diabetic chronic kidney disease; E83.39 Other disorders of phosphorus metabolism; D64.9 Anemia, unspecified

== ENCOUNTER 2017-10-08 12:13 | Inpatient (IN) | payer MEDICARE, BC, MEDICAID ==
[~2017-10-08] VITALS: Ht 160 cm; Wt 2.8 kg
--- NOTE | ~2017-10-08 | OP ---
PATIENT NAME: NADIRA PERDUE MEDICAL RECORD: [id number] :58 LOCATION:D.M2 D.2108 ADMISSION DATE:10/08/17 SURGEON: LLUVIA SOW MD DATE OF OPERATION: 11/09/2017 PREOPERATIVE DIAGNOSES: 1. Ulcerated and infected right superior medial thigh wound. 2. Malfunctioning right internal jugular HemoSplit catheter (tunneled cuffed dual-lumen hemodialysis catheter). POSTOPERATIVE DIAGNOSES: 1. Ulcerated and infected right superior medial thigh wound. 2. Malfunctioning right internal jugular HemoSplit catheter (tunneled cuffed dual-lumen hemodialysis catheter). 3. Fibrin sheath around the HemoSplit catheter. PROCEDURES: 1. HemoSplit catheter removal (tunneled cuffed dual-lumen hemodialysis catheter, 23 cm). 2. HemoSplit catheter placement (tunneled cuffed dual-lumen hemodialysis catheter, 23 cm). 3. Nonselective right innominate venogram. 4. Balloon angioplasty with lysis of fibrin sheath in the right innominate vein, 10 mm. 5. Excisional debridement of infected right medial upper thigh ulcer, which measured 5.4 cm x 4.8 cm and was 1.9 cm in depth. The excised defect was 9.2 cm x 9.0 cm and was 2.5 cm in depth. The debridement included skin and subcutaneous tissue as well as a margin of very indurated skin and subcutaneous tissue consistent with calciphylaxis. 6. Marsupialization of the excisional debridement site. SURGEON: Lluvia Sow MD MENTAL HEALTH COUNSELOR: None. BLOOD LOSS: Minimal. ANESTHESIA: General. COMPLICATIONS: None. No radiologist was present for this procedure. Static and cine images were obtained, are kept in the PACS system. The surgeon interpretation of the radiographic images is dictated within the body of this operative note. The debridement was a sharp debridement with a scalpel. I debrided back to viable bleeding tissue. OPERATIVE COURSE: The patient was conveyed to the operating room electively on 11/09/2017. General anesthesia was induced by the anesthesia staff. The right thigh, right neck, and right chest were sterilely prepped and draped. I bluntly dissected up along the catheter tract, around the HemoSplit catheter. I advanced two 0.035 Glidewires, one in each lumen of the HemoSplit catheter. I pulled the HemoSplit catheter back into the internal jugular vein or the very proximal right innominate vein. Through the shortest lumen, I removed the OPERATIVE REPORT [id number] NADIRA PERDUE and performed a nonselective venogram under digital subtraction. I then advanced the Glidewire again. I removed the HemoSplit catheter over the Glidewires. I advanced a 10-mm angioplasty balloon. I inflated the angioplasty balloon in the right innominate vein and then forcefully moved it back and forth very quickly in order to lyse the fibrin sheath, which I believe I saw on the cine images. The angioplasty balloon was removed. I then loaded a new 23-cm HemoSplit catheter over the Glidewire and advanced it. I then removed the Glidewire. I then pulled back on the cuff to seat it into the subcutaneous tissues. I then obtained some static images and the longest tip of the HemoSplit catheter appears to be at the cavoatrial junction. There is no apparent kinking or twisting of the HemoSplit catheter. The flange was sutured to the underlying skin with 2-0 nylons. I then flushed both lumens of the HemoSplit catheter with the appropriate amount of heparinized saline and then concentrated heparin. A sterile dressing was applied. Attention was then turned to the right medial thigh wound. Initially, we thought that this was a pressure ulcer, but instead this is actually an ulcerated area of calciphylaxis. I could tell this because, around the rim of the ulcer, there was woody induration consistent with calciphylaxis. Utilizing a scalpel, I excised around this area of induration and I excised back to bleeding viable tissue. The tissues that were debrided include skin and subcutaneous tissue over the ulcer as well as a rim of calciphylaxis and necrotic fat. Meticulous hemostasis was achieved with electrocautery. I then marsupialized the wound with running locking 3-0 Vicryl Rapide suture and then it was packed with sterile gauze. The patient was then extubated and conveyed to postanesthesia care unit where she was in stable condition. TRANSINT:[id number] Voice Confirmation ID: [id number] DOCUMENT ID: [id number] LLUVIA SOW MD at 1227 CC: GIA MACKENZIE MD and IMELDA AGARWAL MD [id number] DICTATION DATE: 11/09/17 1346 FOUNDATION ASSISTANT: 11/09/17 1754 ADM IN [facility] [address] [id number]
--- NOTE | ~2017-10-08 | CN ---
PATIENT NAME:NADIRA PERDUE MEDICAL RECORD: [id number] : 58 LOCATION:D.Zackary D.2108 ADMIT DATE: 10/08/17 ACCOUNT: [id number] CONSULTING PHYSICIAN: GIA MACKENZIE MD REFERRING PHYSICIAN: IMELDA REYNOSO MD DATE OF CONSULTATION: 10/08/2017 Renal Consultation REFERRING PHYSICIAN: Imelda Reynoso MD HISTORY OF PRESENT ILLNESS: This is a nice ESRD patient with significant calciphylaxis that is being admitted with a fever and pain with her decubitus area. She had insisted on discharge this past week and had been back at home after nearly 2 months in the hospital. I saw her today on dialysis rounds and asked if she would come back to the hospital for admission. REVIEW OF SYSTEMS: Pain in the decubitus area. She has had pain with transfers. She has not been able to receive her overlay mattress at home. No nausea or vomiting. No chest pain or shortness of breath. PAST MEDICAL HISTORY: 1. End-stage renal disease, on dialysis due to diabetes. 2. Diabetes type 2 with poor control. 3. Hypertension. 4. Hyperphosphatemia with calciphylaxis. 5. Secondary hyperparathyroidism. 6. Decondition. 7. Charcot foot. 8. Prolonged hospital stay. ALLERGIES: Please refer to her medication list. SOCIAL HISTORY: She is , good family support. No tobacco, alcohol, or illicit drugs. She is disabled. FAMILY HISTORY: Noncontributory for renal insufficiency. PHYSICAL EXAMINATION: VITAL SIGNS: Blood pressure in dialysis was 142/72, 72 heart rate, 18 respiratory rate. She was afebrile. GENERAL: She was alert and oriented times 3. HEENT: Normocephalic, atraumatic. Clear nares. Clear throat. No JVD. She has a right IJ tunnel catheter, right radiocephalic fistula with a positive thrill. LUNGS: Grossly clear. ABDOMEN: Nontender. PD catheter site has been removed, significant calciphylaxis lesions have been documented. EXTREMITIES: Trace erythema around the margins. Charcot foot as noted. LABORATORY DATA: Being drawn in the Emergency Room. ASSESSMENT AND PLAN: 1. End-stage renal disease. We will continue dialysis support. 2. Decondition. CONSULT REPORT [id number] NADIRA PERDUE 3. Hyperphosphatemia and calciphylaxis, has had significant lesions and has been on sodium thiosulfate. We will likely have surgical consultation again. 4. Catheter dependent at this time, does have a radiocephalic fistula. We will discuss having her fistula reevaluated. She has been having other issues. She is reported and has not been out of the hospital for a fistulogram or follow up with surgery. 5. Diabetes. She will be on a sliding scale, long-acting insulin. 6. Hypertension. We will monitor her fluid status and her medications. 7. Anemia of chronic kidney disease. We will follow her hematocrit. Plan: Please see orders. TRANSINT:[id number] Voice Confirmation ID: [id number] DOCUMENT ID: [id number] GIA MACKENZIE MD at 1143 CC: [id number] DICTATION DATE: 10/08/171725 TANNING SOLUTION MAKER: 10/08/17 1905 ADM IN [facility] [address] [place] [address]
--- NOTE | ~2017-10-08 | MORECARE ---
CASE MANAGEMENT DISCHARGE SUMMARY PATIENT: NADIRA FOX UNIT: [id number] ADM DATE: 10/08/17 AGE: 57 : 58 SEX: F ROOM/BED: D.1739 AUTHOR: CASE, ELECTRONIC WIRER PHYSICIAN: REFERRING PHYSICIAN: IMELDA AGARWAL MD DATE OF SERVICE: 10/08/17 Discharge Plan Patient Name: NADIRA FOX Facility: [facility]:[place] : 1960 Planned Disposition: Home with Home Health Anticipated Discharge Date: 11/04/17 Discharge Date: Expected LOS: 27 Initial Reviewer: [id number] Initial Review Date: 10/08/2017 Generated: 01/15/18 4:26 pm Comments DCP- Discharge Planning Updated by [id number]: Claudio London on 01/12/18 3:[address] Patient Name: NADIRA FOX Encounter No: [id number] : 1960 Primary Insurance: MEDICARE A & B Anticipated DC Date: 11-04-2017 Planned Disposition: Home with Home Health External Planned Provider: [facility] DCP follow-up note: CM MET WITH PT IN ROOM, DISCUSSED DISCHARGE NEEDS, PT REPORTS HER SPOUSE IS WORKING ON THE EQUIPMENT BUT PT IS NOT ABLE TO LEAVE DUE TO LEAK IN HER PD CATHETER. IMPORTANT MESSAGE FROM MEDICARE PROVIDED AND EXPLAINED. CM CALLED [employer], , SPOKE TO GEOVANNA REGARDING PROCESSING ORDER FOR CINTHYA LIFT FOR HOME DELIVERY WELL MATTRESS PURCHASE BY FAMILY. GEOVANNA REPORTS THAT COOPER OF [employer] IS ON THE PHONE WITH CARLY, PT'S SPOUSE, DISCUSSING CINTHYA LIFT AND MATTRESS NOW AND [employer] WILL CALL CM SHORTLY. MARGARET FAXED CLINICAL UPDATE TO [employer] AT [phone]. --[employer] IS WORKING ON ORDER FOR PRIVATE PAY LOW AIR LOSS ALTERNATING PRESSURE MATTRESS, INSURANCE ORDER FOR CINTHYA LIFT AND ELECTRIC WHEELCHAIR; THE ELECTRIC WHEELCHAIR WILL NOT BE DELIVERED UNTIL APPROVED BY INSURANCE, MAY TAKE SEVERAL WEEKS AND PT HAS MANUAL WHEELCHAIR AT HOME TO USE NOW. --[facility] WILL ACCEPT FOR HOME HEALTH AT DISCHARGE, . Claudio London, CASE MANAGEMENT Appended by Claudio London on 01/12/2018 16:06 CDT: MARGARET RECEIVED CALL FROM GEOVANNA OF [facility]; THEY ARE SCHEDULED TO DELIVER THE LOW AIRL LOSS ALTERNATING PRESSURE MATTRESS AND CINTHYA LIFT TO PT'S HOME TOMORROW, 01-13-18. GEOVANNA ASKED THAT [facility] BE NOTIFIED OF PT'S ACTUAL DISCHARGE DATE AT [phone]. CLAUDIO LONDON, CASE MANAGEMENT DCP- Discharge Planning Updated by [id number]: Claudio London on 01/07/18 1:[address] Patient Name: NADIRA FOX Encounter No: [id number] : 1960 Primary Insurance: MEDICARE A & B Anticipated DC Date: 11-04-2017 Planned Disposition: Home with Home Health External Planned Provider: [facility] DCP follow-up note: MARGARET SPOKE TO PT'S SPOUSE AT NURSES STATION; MR. FOX BELIEVES PT WILL GO HOME SOMETIME NEXT WEEK. HE HAS NOT VISITED OR CALLED [facility] IN REGARD TO THE ALTERNATING PRESSURE LOW AIRLOSS MATTRESS. CM ADVISED THAT ACCORDING TO STEF AT [facility], THEY HAVE A STANDARD AIR MATTRESS WAITING FOR DELIVERY TO THEM FOR PT'S HOME USE, PAID FOR BY MEDICARE AND [facility] ON HOLD. CM ADVISED THAT PT WILL NOT RECEIVE THE ELECTRIC WHEELCHAIR PRIOR TO GOING HOME DUE TO PROCESSING AND APPROVAL NEEDED BUT THAT [facility] IS ALSO WORKING ON THE CINTHYA LIFT FOR HOME DELIVERY. PT'S SPOUSE STATES THAT HE WILL FOLLOW UP WITH [facility] AND [facility]. MARGARET CALLED [facility], , SPOKE TO MUSHTAQ WHO ADVISED THAT PT'S SPOUSE IS THERE NOW AND THAT GE[employer]ANNA IS PROCESSING ORDER FOR CINTHYA LIFT FOR HOME DELIVERY. CM ASKED FOR EXPEDITED ORDER WE ARE WAITING FOR DELIVERY OF EQUIPMENT FOR PT'S DISCHARGE HOME. --[facility] ARRANGING HOME DELIVERY OF AIR MATTRESS WITH PT'S SPOUSE. --[facility] IS WORKING ON ORDER OR CINTHYA LIFT AND ELECTRIC WHEELCHAIR; THE ELECTRIC WHEELCHAIR WILL NOT BE DELIVERED UNTIL APPROVED BY INSURANCE, MAY TAKE SEVERAL WEEKS AND PT HAS MANUAL WHEELCHAIR AT HOME TO USE NOW. --[facility] WILL ACCEPT FOR HOME HEALTH AT DISCHARGE, . Claudio London, CASE MANAGEMENT Appended by Claudio London on 01/07/2018 14:45 CDT: CM RECEIVED CALL FROM COOPER OF [facility]; HE HAS MET WITH CARLY , PT'S SPOUSE, WHO IS ON BOARD WITH THE MATTRESS FROM [employer] ON PRIVATE PAY BASIS AND [employer] WILL PROVIDE LOW AIR LOSS ALTERNATING PRESSURE MATTRESS AT PUCHASE ETIENNE OF $750; THE MATTRESS WAS ORDERED TODAY AND WILL BE IN THURSDAY OR THURSDAY OF NEXT WEEK. THEY ARE STILL WORKING ON THE CINTHYA LIFT ALSO. ONCE THE EQUIPMENT COMES IN, ALL WILL BE DELIVERED TO PT'S HOME, [employer] WILL DELIVER, SET UP AND TRAIN PT'S SPOUSE ON EQUIPMENT. CM WAITING ON MATTRESS AND CINTHYA LIFT TO BE DELIVERED TO PT'S HOME. THE SPECIALTY MATTRESS WILL NOT BE IN UNTIL THURSDAY OR THURSDAY OF NEXT WEEK (01-11 OR 01-12). CLAUDIO LONDON, CASE MANAGEMENT DCP- Discharge Planning Updated by [id number]: Claudio London on 01/06/18 4:[address] Patient Name: NADIRA FOX Encounter No: [id number] : 1960 Primary Insurance: MEDICARE A & B Anticipated DC Date: 11-04-2017 Planned Disposition: Home with Home Health External Planned Provider: [facility] DCP follow-up note: CM RECEIVED CALL FROM PT ASKING TO SEE CM. CM MET WITH PT IN ROOM, PT REPORTS THAT HER SPOUSE ASKED HER TO TELL CM THAT [facility] HAS A LOW AIR LOSS MATTRESS FOR HER AT THE OFFICE AND MEDICARE IS PAYING FOR IT. MARGARET CALLED [facility], ,. SPOKE TO STEF WHO REPORTS THAT THE LOW AIR LOSS MATTRESS WAS ORDERED PRIOR TO HOSPITALIZATION AND HE HAS IT IN STOCK AND WILL CALL PT'S SPOUSE TO ARRANGE HOME DELIVERY TO THEIR HOME IN [place]. --[facility] ARRANGING HOME DELIVERY OF AIR MATTRESS WITH PT'S SPOUSE. --[facility] IS WORKING ON ORDER OR CINTHYA LIFT AND ELECTRIC WHEELCHAIR; THE ELECTRIC WHEELCHAIR WILL NOT BE DELIVERED UNTIL APPROVED BY INSURANCE, MAY TAKE SEVERAL WEEKS AND PT HAS MANUAL WHEELCHAIR AT HOME TO USE NOW. --[facility] WILL ACCEPT FOR HOME HEALTH AT DISCHARGE, . Claudio London, CASE MANAGEMENT DCP- Discharge Planning Updated by [id number]: Claudio London on 01/05/18 2:[address] Patient Name: NADIRA FOX Encounter No: [id number] : 1960 Primary Insurance: MEDICARE A & B Anticipated DC Date: 11-04-2017 Planned Disposition: Home with Home Health External Planned Provider: [facility] DCP follow-up note: CM CALLED [facility] PATIENT ADVOCATE TREVON MAYY, , DISCUSSED PT'S CONDITION AND NEED FOR SPECIALTY MATTRESS. TREVON ADVISED THAT PT WILL NEED TO QUALIFY BY MEDICARE GUIDELINES (SINGLE STAGE 3 WOUND, MULTIPLE STAGE 1 & 2 WOUNDS) FOR INSURANCE TO COVER SPECIALTY MATTRESS. [facility] COULD WORK WITH PT AND FAMILY REGARDING GROUP 2 MATTRESS FOR PRIVATE PURCHASE, LOW AIR LOSS AND ALTERNATING PRESSURE (MATTRESS AND BLOWER WITHOUT BED) $4,300 IS THE MOST COST EFFECTIVE THEY HAVE. CM TO FOLLOW UP WITH DOCTOR AND PT REGARDING HOSPITAL BED. MARGARET SPOKE TO [facility] REGARDING REFERRAL FOR ELECTRIC WHEELCHAIR AND CINTHYA LIFT; [facility]ATO ASKED FOR CM TO REFAX INFORMATION. MARGARET REFAXED ORDERS AND DOCUMENTATION TO [facility] AT [phone]. MARGARET NOTIFIED PT AND SPOUSE IN ROOM REGARDING INSURANCE NOT PAYING FOR ALTERNATING PRESSURE, LOW AIRLOSS MATTRESS, PROVIDED QUOTES FROM [facility] GR[facility] AND [facility] FOR PRIVATE PAY MATTRESS. PT'S SPOUSE WILL SPEAK TO COOPER AT [facility] REGARDING PRIVATE PAY FOR SPECIAL MATTRESS. Claudio London, CASE MANAGEMENT DCP- Discharge Planning Updated by [id number]: Claudio London on 01/04/18 4:[address] Patient Name: NDAIRA FOX Encounter No: [id number] : 1960 Primary Insurance: MEDICARE A & B Anticipated DC Date: 11-04-2017 Planned Disposition: Home with Home Health External Planned Provider: [facility] DCP follow-up note: CM RECEIVED ORDER TO ARRANGE HOME MEDICAL EQUIPMENT AND HOME HEALTH FOR DISCHARGE PLANNING. CM MET WITH PT IN ROOM AT HER REQUEST. PT REPORTS SHE WOULD LIKE HOME HEALTH WITH [employer] [facility], THINKS THE [facility] OFFICE [facility]OULD [facility]. CHOICE SIGNED. PT REPORTS THEY ARE MOVING FROM [facility] BACK TO THEIR HOME IN [place], [place]. DISCHARGE ADDRESS IS: [address] [place] [address]., [place] [address]. PT REPORTS SHE NEEDS AN AIR MATTRESS FOR HER HOSPITAL BED AT HOME AND A CINTHYA LIFT. PT REPORTS HAVING A MANUAL WHEELCHAIR AND WANTS AN ELECTRIC WHEELCHAIR TO ASSIST HER FAMILY IN GETTING HER [place] AND OFF THE [place] MEDICAID TRANSPORTATION BUS NEEDED. CM EXPLAINED THAT PT CAN HAVE AN ATTENDANT PUSH HER MANUAL CHAIR ONTO AND OFF THE BUS AND THAT AN ELECTRIC WHEELCHAIR MAY TAKE A LONG PERIOD OF TIME FOR INSURANCE TO PROCESS FOR APPROVAL OR DENIAL. PT DOES NOT KNOW WHO HER EQUIPMENT COMPANY IS. CM CALLED [employer], , SPOKE TO CLAIRE WHO REPORTS THEY WILL ACCEPT PT FOR HOME HEALTH AND [facility]. CM FAXED REFERRAL INFORMATION TO [facility] AT [phone]. CM CALLED [facility], , VERIFIED PT HAS CURRENT EQUIPMENT THROUGH [facility]. CM TO OBTAIN SPECIFIC EQUIPMENT ORDERS FROM PHYSICIAN AND BEGIN PROCESS OF HOME EQUIPMENT ORDER AND PROCESSING. Claudio London, CASE MANAGEMENT Appended by Claudio London on 01/04/2018 15:44 CDT: CM CALLED AND SPOKE TO RENAL NURSE CATE, ORDERS FOR STAGE 2 MATTRESS, CINTHYA LIFT AND ELECTRIC WHEELCHAIR FOR HOME USE PROVIDED. CM CALLED [facility], , SPOKE TO STEF AND LESLIE WHO REFERRED CM TO [facility] OR [facility], REPORTING THE ONLY ALTERNATIVE THAT [facility] CAN ORDER IS A LOW AIRLOSS MATTRESS. CM CALLED [facility], , SPOKE TO KHALIF WHO WILL COME AND LOOK AT PT'S CURRENT BED AND CONSULT FOR HOME BED NEEDS. CM NOTIFIED PT IN ROOM. CM FAXED FACE SHEET TO [facility], . CM WAITING AUGUSTINE, TO COME TO HOSPITAL AND EVALUATE PT'S HOSPITAL BED AND INFORM CM IF [facility] IS ABLE TO MEET PT'S HOME MEDICAL BED NEED. CM WILL ALSO PROVIDE ORDER FOR CINTHYA LIFT AND ELECTRIC WHEELCHAIR TO [facility] IF THEY ARE ABLE TO ORDER HOSPITAL BED FOR PT'S HOME USE. 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 PT WILL HAVE TO HAVE DOCUMENTED MULTIPLE STAGE 2 ULCERS OR AT LEAST 1 STAGE 3 DECUB ULCER TO QUALIFY FOR A LOW AIR LOSS AND ALTERNATING PRESSURE MATTRESS FOR HOME USE. CM TO FOLLOW UP WITH PHYSICIAN AND WOUND CARE NURSE TO DETERMINE IF ANY OF THESE QUALIFICATIONS ARE MET FOR THE SPECIALTY MATTRESS. COOPER BERNICE GAYTAN, , WELCOMES CALLS FROM DOCTOR OR WOUND CARE NURSE TO DISCUSS MEDICARE CRITERIA FOR HOME SPECIALTY MATTRESS. CLAUDIO LONDON, CASE MANAGEMENT DCP- Discharge Planning Updated by [id number]: Antonella Montana on 01/01/18 3:[address] PTS SPOUSE REQUESTED CM TO THEIR ROOM. PATIENT NOW HAS A PD CATH AND WILL RESTART PD. HE WANTED TO KNOW WHAT HOME HEALTHS WOULD BE POSSIBLE FOR HIM TO HAVE TO HELP WITH HER. I CALLED SEVERAL HOME HEALTHS FROM OUR LISTING AND THE INTERNET. I FOUND 3 THAT WOULD SERVICE THE AREA. [facility] OUT OF [place], [place]; [facility] OUT OF [place], [place]; AND [facility] OUT OF [place], [place]. THIS INFORMATION WELL THEIR PHONE NUMBERS HAVE BEEN GIVEN TO THE PATIENT SPOUSE. THEY WILL LET US KNOW WHEN THEY HAVE MADE A DECISION. DCP- Discharge Planning Updated by [id number]: Claudio London on 12/25/17 11:[address] Patient Name: NADIRA FOX Encounter No: [id number] : 1960 Primary Insurance: MEDICARE A & B Anticipated DC Date: 11-02-2017 Planned Disposition: HOME DCP follow-up note: CM SPOKE TO PT'S SPOUSE AT NURSES STATION AT HIS REQUEST. PT'S SPOUSE ASKED CM WHAT OPTIONS THEY HAD AT THIS TIME. CM EXPLAINED FROM PREVIOUS CONTACT WITH HE AND PT IN ROOM, CM WAITING ON PT TO MAKE A DECISION REGARDING INTERMEDIATE FACILITY PLACEMENT OR HOSPICE CARE; CM OBSERVED THAT PT HAS MADE NO PROGRESS WITH THERAPY AND SEEMS TO BE WEAKER NOW. PT'S SPOUSE REPORTS THAT THE BED PT IS NOW ON IS NOT EASY FOR PT TO ROLL ON AND PT IS WEAKER NOW. PT'S SPOUSE INFORMED CM THAT DR MACKENZIE HAS TALKED TO THEM ABOUT HAVING PD CATH PLACED FOR PT TO GO HOME WITH SPOUSE FOR SPOUSE TO DO THE PD AT HOME PT'S SPOUSE REPORTED THEY HAVE DONE PD AT HOME BEFORE AND HE KNOWS HOW TO DO IT. PT'S SPOUSE REPORTS HE CAN GET PT TO AND FROM THE DIALYSIS CLINIC FOR HER MONTHLY VISITS WHILE DOING PD AT HOME. SPOUSE REPORTS THEY ARE NOT CONSIDERING INTERMEDIATE FACILITY OR HOSPICE AT THIS TIME AND WANT TO GO HOME AND DO "HOME PD." SPOUSE REPORTS HE CAN GET PT TO AND FROM DIALYSIS CLINIC FOR MONTHLY VISITS IF NEEDED. Claudio London, CASE MANAGEMENT DCP- Discharge Planning Updated by [id number]: Claudio London on 12/10/17 8:[address] Patient Name: NADIRA FOX Encounter No: [id number] : 1960 Primary Insurance: MEDICARE A & B Anticipated DC Date: 11-02-2017 Planned Disposition: INTERMEDIATE FACILITY External Planned Provider: TO BE DETERMINED DCP follow-up note: CM SPOKE TO PT AND SPOUSE IN ROOM REGARDING DISCHARGE PLANNING. CM DISCUSSED WITH PT THAT HOME DIALYSIS IS NOT AN OPTION, PT REPORTS THAT THE DOCTORS HAD NOT TOLD HER THAT. CM DISCUSSED INTERMEDIATE FACILITY FOR REHAB AND / OR CLOTH COLORER CARE. CM DISCUSSED NEED TO START SEEKING FACILITY SOON POSSIBLE. CHOICE LISTING PROVIDED. CM DISCUSSED FACT THAT PT WILL HAVE TO BE ABLE TO TRANSFER TO CHAIR WITH ASSISTANCE OR MECHANICAL LIFT AND BE ABLE TO SIT FOR DURATION OF OUTPATIENT DIALYSIS TREATMENT. PT REPORTS SHE HAS BEEN GETTING BETTER AND FEELS THAT THE DOCTOR IS TRYING TO PUSH HER TOWARD HOSPICE. CM EXPLAINED THE NEED TO PLAN FOR AND WORK TOWARD THE NEXT LEVEL OF CARE OUTSIDE THE HOSPITAL SETTING. PT'S SPOUSE DISCUSSED WITH PT ALL THE PLACES THAT HAVE DECLINED HER. PT ASKED IF SHE COULD GO TO INPATIENT REHAB AT [place], CM EXPLAINED THAT CM HAS EXPLORED THIS OPTION WITH ALL OTHER OPTIONS AND THEY WILL NOT CONSIDER HER FOR REHAB DUE TO POOR PROGNOSIS AND LACK OF PROGRESS. CM DISCUSSED HOSPICE. CM EXPLAINED THAT PT NEEDS TO WORK TOWARD SITTING IN CHAIR FOR THREE HOURS FOR INTERMEDIATE FACILITY PLACEMENT OR CONSIDER HOSPICE CARE, THAT CM WAS NOT ABLE TO DEVELOP ANY FURTHER OPTIONS FOR PT. PT WANTS TO THINK ABOUT THIS AND DOES NOT WANT TO MAKE A DECISION NOW. CM EXPLAINED THAT THERAPY WILL BE WORKING TODAY TO GET PT INTO A CHAIR AND SEE HOW LONG PT CAN TOLERATE AND WILL BE WORKING DAILY TO GOAL OF 3 HOURS. PT REPORTS UNDERSTANDING AND WILL THINK ABOUT HER OPTIONS AND LET CM KNOW WHAT SHE WANTS TO DO. CM DISCUSSED IMPORTANT MESSAGE FROM MEDICARE, PT REPORTS STILL HAVING THE PHONE NUMBER. PT ASKED IF THIS IS ABOUT INSURANCE RUNNING OUT. CM EXPLAINED THAT IT IS NOT, THAT AGAIN, PT NEEDS TO BE MAKING PROGRESS AND WITH CM'S ASSISTANCE, NEED TO BE MAKING DISCHARGE PLANS FOR CARE OUTSIDE THE HOSPITAL; PLANNING FOR THE NEXT STEP. PT ASKED ABOUT WHAT HAPPENS IF PROGRESS IS NOT MADE AND THERE IS NO PLAN. CM EXPLAINED THAT PT CANNOT JUST LAY IN THE HOSPITAL BED WITHOUT MAKING PLANS FOR DISCHARGE AND THAT IF THAT DOES HAPPEN, INSURANCE MAY NOT PAY FOR CONTINUED HOSPITAL STAY AND PT MAY BE SERVED WITH DAILY ARIZA RATE; PT'S SPOUSE STATES "THEN WE WILL PAY IT." CM ASKED PT TO LET CM KNOW SOON POSSIBLE HER DECISION FOR DISCHARGE PLANNING AND TO LET CM KNOW IF THERE IS ANYTHING CM CAN DO FOR HER. CM WAITING ON PT TO MAKE A DECISION REGARDING INTERMEDIATE FACILITY PLACEMENT OR HOSPICE CARE. Claudio London, CASE MANAGEMENT DCP- Discharge Planning Updated by [id number]: Claudio London on 11/26/17 8:[address] Patient Name: NADIRA FOX Encounter No: [id number] : 1960 Primary Insurance: MEDICARE A & B Anticipated DC Date: 11-02-2017 Planned Disposition: TO BE DETERMINED DCP follow-up note: CM SPOKE TO PT'S SPOUSE; HE HAS SPOKEN TO PT AND UNDERSTANDS THAT [facility] WILL NOT ACCEPT PT AND ASKED WHY. CM EXPLAINED THAT [facility] EVALUATION RESULTED IN THEIR TEAM QUESTIONING THEIR ABILITY TO SUCCESSFULLY DISCHARGE PATIENT TO A LOWER LEVEL OF CARE. PT'S SPOUSE REPORTS PT IS DOING BETTER AND HAS BEEN PROGRESSING PER HIS CONVERSATIONS WITH DR. LOPEZ AND DR. MACKENZIE. CM EXPLAINED THAT UPDATES WERE SENT TO [facility] THAT INCLUDED ALL CLINICAL INFORMATION AND AFTER EVALUATING PT'S PROGRESS OR LACK THEREOF FOR THE PAST TWO WEEKS, NOW [facility] WILL NOT ACCEPT BASED ON THEIR EVALUATION. CM EXPLAINED THAT CM HAS NO FURHTER PLACEMENT OPTIONS KNOWN AT THIS TIME PT IS STILL NOT ABLE TO TRANSFER AND SIT FOR OUTPATIENT DIALYSIS. PT'S SPOUSE ASKED WHY THE "PUSH" TO GET PT OUT OF HOSPITAL. CM EXPLAINED TO SPOUSE THAT PT IS IN ACUTE CARE FACILITY AND THAT ONCE STABLE, PT'S TRANSFER TO THE NEXT LEVEL OF CARE UNTIL HOPEFULLY CAN GO HOME AGAIN IF NOT STRAIGHT HOME FROM HOSPITAL; CM EXPLAINED ACUTE CARE, CLOTH COLORER ACUTE CARE, INPATIENT REHAB SERVICES, INTERMEDIATE FACILITY REHAB AND CLOTH COLORER CARE SERVICES AND HOME WITH HOME HEALTH. CM EXPLAINED AGAIN THAT ALL OTHER FACILITIES THAT HAVED EVALUATED PT DO NOT AGREE THAT PT WILL PROGRESS WITH TREATMENT TO LEAVE THEIR FACILITY BACK TO HOME OR A LOWER LEVEL OF CARE. MARGARET EXPLAINED THAT PT WILL NEED TO PROGRESS TO THE POINT OF BEING ABLE TO TRANSFER AND SIT FOR DIALYSIS IN OUTPATIENT UNIT IN ORDER FOR CM TO ASSIST WITH PLACEMENT IN ANY FACILITY OR FOR PT TO RETURN HOME. PT'S SPOUSE STATES HIS DAUGHTER IS CHECKING WITH PEOPLE SHE KNOWS IN [place] AND [place] FOR ANY IDEAS FOR CONTINUED TREATMENT FOR PT AND WILL LET CM KNOW IF THEY ARE ABLE TO COME UP WITH ANY OTHER POSSIBLE OPTIONS. SPOUSE DOES NOT BELIEVE PT IS READY FOR HOSPICE AND AGAIN STATES THAT JAIR PEREZ ARE TELLING THEM PT IS GETTING BETTER. PT AND SPOUSE BELIEVE PT IS PROGRESSING AND "GETTING BETTER". PT IS NOT READY FOR HOSPICE. CM IS UNABLE TO FIND PLACEMENT FOR PT IN FACILITY OR FOR PT TO RETURN HOME UNLESS SHE IS ABLE TO PROGRESS TO TRANSFER AND SIT FOR OUTPATIENT DIALYSIS. Claudio London, CASE MANAGEMENT DCP- Discharge Planning Updated by [id number]: Claudio London on 11/25/17 3:[address] Patient Name: NADIRA FOX Encounter No: [id number] : 1960 Primary Insurance: MEDICARE A & B Anticipated DC Date: 11-02-2017 Planned Disposition: TO BE DETERMINED DCP follow-up note: MARGARET RECEIVED NOTIFICATION FROM [facility]O OF [facility] WHO INFORMED CM THAT "After multiple discussions with wound care and IDT I hate to have to inform you that we at [facility] are not going to be able to accept PATIENT; The patient's progression with calciphylaxis, the continued low grade fever and many other chronic problems question our ability to successfully discharge this patient to a lower level of care." CM NOTIFIED PT IN ROOM WHO IS TEARFUL AND WANTS TO KNOW HOW LONG SHE CAN STAY IN THE HOSPITAL. MARGARET EXPLAINED THAT PT IS GOING TO HAVE TO PROGRESS MEDICALLY AND WITH THERAPY SERVICES TO BE ABLE TO DISCHARGE TO HOME OR ASSISTED AND BE ABLE TO TRANSFER TO OUTPATIENT DIAYSIS CHAIR AND SIT FOR DURATION OF DIALYSIS. PT ASKED IF SHE IS A CANDIDATE FOR [employer], CM DIRECTED PT TO SPEAK TO HER RENAL TEAM BUT THAT CM DID NOT THINK SO. PT ASKED IF THERE IS A DIALYSIS UNIT SHE CAN GO TO THAT SHE CAN STAY IN THE BED, CM INFORMED PT THAT THERE ARE NONE THAT CM IS AWARE OF AND REMINDED PT THAT SHE HAD BEEN DECLINED BY [facility] IN THE ASSISTED. PT STATES SHE HAS PRAYED ABOUT IT AND IS NOT READY FOR HOSPICE YET. PT HAS BEEN PREVIOUSLY DECLINED BY [facility] ON 10-13-17. PT HAS BEEN DECLINED BY JODI VILLAGRAN ([facility]). CM HAS BEEN DECLINED BY [facility] AND [facility]. CM HAS BEEN [facility]CLINED BY [facility] (WITH [facility]IALYSIS UN[facility]) CM HAS PROVIDED HOSPICE INFORMATION, PT STILL DECLINES. CM NOTIFIED LIVE TRUCK OPERATOR DR. JASON WRIGHT AND RENAL NURSE CATE. CM WILL CONTINUE TO FOLLOW AND ASSIST NEEDED. BOBBI LONDON, CASE MANAGEMENT DCP- Discharge Planning Updated by [id number]: Claudio London on 11/24/17 11:[address] Patient Name: NADIRA FOX Encounter No: [id number] : 1960 Primary Insurance: MEDICARE A & B Anticipated DC Date: 11-02-2017 Planned Disposition: [facility] External Planned Provider: [facility] DCP follow-up note: CM FAXED UPDATE TO UMBERTO AT [place] [address]. CM CALLED [facility], SPOKE TO UMBERTO AT [phone], LTACH BED IS NOT AVAILABLE AT THIS TIME. CM WAITING BED AVAILABILITY AT [facility]. BRIA Gerard DCP- Discharge Planning Updated by [id number]: Claudio London on 11/17/17 5:[address] Patient Name: NADIRA MAXWELLNALLY Encounter No: [id number] : 1960 Primary Insurance: MEDICARE A & B Anticipated DC Date: 11-02-2017 Planned Disposition: Skilled Nursing Acute Care [facility] External Planned Provider: [facility] DCP follow-up note: CM FAXED UPDATE TO UMBERTO AT [place] [address]. CM WILL CALL AND FOLLOW UP WITH UMBERTO SOON POSSIBLE AT [phone] REGARDING LTACH BED AVAILABILITY. CM WAITING BED AVAILABILITY AT [facility]. BRIA Gerard DCP- Discharge Planning Updated by [id number]: Claudio London on 11/13/17 9:[address] Patient Name: NADIRA MAXWELLNALLY Encounter No: [id number] : 1960 Primary Insurance: MEDICARE A & B Anticipated DC Date: 11-02-2017 Planned Disposition: Skilled Nursing Acute Care [facility] External Planned Provider: [facility] DCP follow-up note: CM FAXED UPDATE TO UMBERTO AT [place] [address]. CM WILL CALL AND FOLLOW UP WITH U[facility]ERTO SOON POSSIBLE AT [phone] REGARDING LTACH BED AVAILABILITY. CM WAITING BED AVAILABILITY AT [facility]. Claudio London, CASE MANAGEMENT Appended by Claudio London on 11/13/2017 10:59 CDT: CM RECEIVED CALL FROM UMBERTO OF [facility], [address] [place] [address] REGARDING LTACH BED AVAILABILITY. THEY STILL DO NOT HAVE AVAILABLE BED AND WILL CONTINUE TO FOLLOW. CM TO CONTINUE TO SEND UPDATES. BOBBI LONDON CASE MANAGEMENT DCP- Discharge Planning Updated by [id number]: Claudio London on 11/11/17 11:[address] Patient Name: NADIRA FOX Encounter No: [id number] : 1960 Primary Insurance: MEDICARE A & B Anticipated DC Date: 11-02-2017 Planned Disposition: [facility] External Planned Provider: [facility] DCP follow-up note: CM FAXED UPDATE TO UMBERTO AT [place] [address]. CM WILL CALL AND FOLLOW UP WITH UMBERTO SOON POSSIBLE AT [phone] REGARDING LTACH BED AVAILABILITY. CM SPOKE TO PT'S SPOUSE AT NURSES STATION, UPDATED THAT [facility] IS PLANNING TO ACCEPT PT FOR [facility] AND IS WAITING BED AVAILABILITY. CM WAITING BED AVAILABILITY AT [facility]. Claudio London CASE MANAGEMENT DCP- Discharge Planning Updated by [id number]: Antonella Hernandez on 11/06/17 3:[address] @1021, LEFT A VOICEMAIL ON [employer] MACHINE INQUIRING ABOUT BED STATUS. EXPLAINED THAT THERE WOULD BE NO CASEMANAGEMENT COVERAGE OVER THE WEEKEND, BUT I WOULD BE HER ON . LEFT THE FLOOR NUMBER TO CALL IF SHE WERE TO BE ACCEPTED OVER THE WEEKEND. WILL WAIT FOR RETURN CALL. DCP- Discharge Planning Updated by [id number]: Antonella Hernandez on 11/05/17 12:[address] @1111, DR MACKENZIE CAME OUT OF PATIENTS ROOM AFTER AROUND 15-20 MINUTES OF CONVERSATION. HE STATED TO ME THAT HE FELT THE BEST PLACE FOR THE PATIENT WAS [facility]. @1121 RECEIVED A VOICEMAIL FROM [facility] WITH [facility], THE PATIENT THAT WAS SUPPOSE TO DISCHARGE LAST NIGHT SPIKED A FEVER AND WAS NOT ABLE TO LEAVE. SHE WILL KEEP ME INFORMED OF BED AVAILABILITY. @1208 I RECEIVED A MESSAGE FROM THE NICHOLEE MARCUS THAT THE FAMILY SAID THEY WANTED TO PROCEED WITH THE LTACH. I WENT INTO THE ROOM TO TALK WITH THEM, THE PATIENT IS IN DIALYSIS AND NO FAMILY WAS PRESENT IN THE ROOM. DCP- Discharge Planning Updated by [id number]: Antonella Hernandez on 11/05/17 9:[address] PATIENTS NURSE TOLD ME THAT THE PATIENT WANTED TO SPEAK WITH ME AND THAT THEY KNEW THEY WERE SUPPOSE TO GO TO LTACH, BUT NOW THEY DO NOT WANT TO GO. ASKED JIM TO COME INTO THE ROOM WITH ME JUST SO THAT THERE WAS A SECOND EAR WITH THE CONVERSATION. UPON ENTRY TO THE ROOM, THE PATIENT WANTED TO KNOW WHERE BOBBI WAS, I EXPLAINED THAT HE WAS ON VACATION UNTIL NEXT WEEK. SHE THEN PROCEEDED TO STATE THAT NO ONE HAD EVEN MENTIONED LTACH TO THEM UNTIL LAST NIGHT WHEN THE DOCTOR SAID THEY MAY HAVE A BED AVAILABLE, AND IT WAS NOT A GOOD CHOICE FOR HER OR HER FAMILY. SHE SAID THAT SHE DID NOT WANT TO GO. I EXPLAINED THAT WE NEEDED TO MAKE A DECISION ON WHERE TO GO THAT SHE COULD NOT JUST REMAIN HERE AT THE HOSPITAL. SHE THEN STATED THAT "DR MACKENZIE TOLD ME I COULD STAY HERE UNTIL HE DECIDED OTHERWISE". I THEN EXPLAINED ABOUT ACUTE CARE SETTINGS, AND WE TALKED ABOUT HER DIAGNOSIS AND THE FACT THAT SHE DOES HAVE TWO DISEASE PROCESSES THAT HAVE A HIGH MORTALITY RATE ON THEIR OWN WHICH DOES INCREASE THIS NOW THAT THEY ARE COMBINED. REVIEWED WITH HER WHAT HAS BEEN DOCUMENTED IN THE NOTES BY MULTIPLE DOCTORS. WE DID DISCUSS HOSPICE. DUE TO THE PATIENT AND FAMILY DENYING THEY HAVE TALKED WITH ANYONE, I DID MODIFY A PATIENT CHOICE LETTER AND HAD THEM SIGN IT. CALL WAS PLACED TO [facility]. SPOKE WITH ANNALISA, GAVE A HISTORY AND EXPLAINED THAT THIS PATIENT DID NOT WANT TO STOP DIALYSIS. SHE PLACED ME ON HOLD SO SHE COULD TALK WITH HER MD. AFTER ABOUT 10 MINUTES, SHE CAME BACK AND STATED THAT SHE WOULD NOT BE ABLE TO CONTINUE DIALYSIS BECAUSE BOTH DIAGNOSIS WERE RELATED. WENT THROUGH THE SAME CONVERSATION WITH [facility] AND WAS GIVEN THE SAME ANSWER. SPOKE WITH VERONICA MONTES APN AND OVIDIO CARLISLE APN ABOUT THIS AND HOW THE PATIENT BELIEVES THAT SHE CAN STAY HERE INDEFINATELY BECAUSE THEY SAID DR MACKENZIE TOLD THEM THEY COULD. ALL 3 OF US WENT INTO THE ROOM AND THINGS WERE DISCUSSED WITH THE PATIENT, HER SPOUSE, HER DAUGHTER, AND HER 5 YEAR OLD GRANDDAUGHTER WAS PRESENT (PLEASE NOTE THAT VERBAL CONSENT WAS OBTAINED TO SPEAK FREELY IN THEIR PRESENCE). THE PATIENT HAS REQUESTED TIME TO THINK ABOUT THINGS. ALSO NOTE, THAT DURING THESE CONVERSATIONS, THE NARRATIVE HAD CHANGED SEVERAL TIMES DEPENDING ON HOW THE CONVERSATION WAS GOING. WE ARE GOING TO LET THEM HAVE A LITTLE MORE TIME TO THINK ABOUT WHAT THEY WANT TO DO. Appended by Antonella Hernandez on 11/05/2017 10:22 CDT: @0946 LEFT A MESSAGE FOR UMBERTO AT [facility] ([phone]) TO SEE WHERE WE WERE WITH THE POSSIBILITY OF BED OPENING. WILL WAIT FOR A RETURN CALL. DCP- Discharge Planning Updated by [id number]: Antonella Hernandez on 11/04/17 12:[address] RECEIVED A CALL FROM UMBERTO AT [facility]. SHE HAS REQUESTED A MAR FROM TODAY AND A UPDATE. SHE STATED THAT THEY MAY HAVE A BED BECOME AVAILABLE TODAY, BUT TO NOT QUOTE HER ON THIS. UPDATE FAXED TO [phone]. WILL WAIT FOR A RETURN CALL. SPOKE WITH DR MACKENZIE AND HE IS OK WITH HER GOING IF SHE IS ACCEPTED. DCP- Discharge Planning Updated by [id number]: Antonella Hernandez on 11/04/17 8:[address] SPOKE WITH MARV WITH [facility]. UPDATE GIVEN ON PATIENT. SHE HAS REQUESTED THAT SHE BE CALLED ([phone]) IF THE PATIENT IS ACCEPTED TO [facility] BECAUSE THEY HAVE BEEN HOLDING A CHAIR FOR HER FOR SOME TIME AND SHE WILL NEED TO NOTIFY THEM. 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 CM CALLED UMBERTO OF [facility], , WHO INFORMED CM THAT THEY RECEIVED REFERRAL AND ARE CONSIDERING PT BUT DO NOT HAVE BED AVAILABLE TODAY. [facility] LTACH IS CONSIDERING PT FOR ADMISSION BUT HAVE NO BEDS AVAILABLE TODAY. Claudio London, CASE MANAGEMENT DCP- Discharge Planning Updated by [id number]: Claudio London on 11/02/17 11:[address] Patient Name: NADIRA FOX Encounter No: [id number] : 1960 Primary Insurance: MEDICARE A & B Anticipated DC Date: 11-02-2017 Planned Disposition: Skilled Nursing Acute Care Facility External Planned Provider: [facility] OR [facility] DCP follow-up note: ON THURSDAY, LATE EVENING, 10-30-17, CM SPOKE TO PT IN ROOM REGARDING DISCHARGE PLANNING AND NEEDS. PT INFORMED THAT [facility] HAD TURNED HER DOWN FOR PLACEMENT; CM DISCUSSED OPTIONS OF LTACH REFERRALS IN [place], CM COULD ATTEMPT TO FIND OUT OF [facility] WITH DIALYSIS UNIT INCLUDED OR HOSPICE. PT ASKED HOW LONG SHE STAY AT [place] BEFORE MAKING A DECISION FOR HOSPICE. CM EXPLAINED THAT PT'S CONDITION IS NOT GETTING ANY BETTER, SHE WILL NEED TO IMPROVE PHYSICALLY TO BE ABLE TO SIT FOR OUTPATIENT DIALYSIS FOR REHAB IN ASSISTED OR TO RETURN HOME WITH HOME HEALTH. PT STILL DOES NOT THINK SHE WILL EVER BE ABLE TO SIT FOR OUTPATIENT DIALYSIS, DOES NOT YET WANT HOSPICE AND WANTS TO TALK ABOUT HER OPTIONS WITH HER AND WILL LET CM KNOW WHAT SHE WANTS TO DO. ON 11-02-17, CM SPOKE TO MICHAEL MONTES, INFORMED OF ABOVE. MICHAEL SPOKE TO PT IN ROOM, INFORMED CM THAT PT DOES WANT REFERRAL TO [facility] IN [place]. CM SPOKE TO PT IN ROOM, PT WOULD LIKE REFERRALS TO [facility]OTH [facility]S IN [place]. PT IS STILL NOT WANTING HOSPICE AT THIS TIME. PT DOES UNDERSTAND HER OPTIONS ARE VERY LIMITED AT THIS TIME. CM CALLED [facility], , SPOKE TO UMBERTO WHO REPORTS SHE WILL RECEIVE REFERRAL AND SCREEN FOR ADMISSION; CM CALLED [facility], , LEFT MESSAGE FOR CHATO NICHOLS, NOTIFYING OF REFERRAL AND ASKING FOR RETURN CALL. CM FAXED REFERRAL FOR LTACH EVALUATIONS TO [facility], AND [facility], . PT'S SPOUSE SPOKE TO CM IN [facility] REGARDING LTACH EVALUATIONS REPORTING HE SUPPORTS HIS IN WHATEVER DECISIONS SHE MAKES. CM WAITING ADMISSION DETERMINATIONS FROM [facility] AND [facility]. Claudio London, CASE MANAGEMENT DCP- Discharge Planning Updated by [id number]: Antonellaromero Hernandez on 10/30/17 1:[address] CALL [address] TO [facility], . WANTED TO CHECK AND SEE IF THEY HAD HEARD FROM [facility] IN REGARDS TO ACCEPTING THE PATIENT OR IF THEY KNEW OF A NUMBER THAT I COULD CALL TO SPEAK WITH SOMEONE AT [facility] TO NOT BEING ABLE TO GET AHOLD OF OUR DIALYSIS LIASON. WAS PLACED ON HOLD AND THEN CONNECTED WITH MANJU REMY. EXPLAINED THE REASON FOR THE CALL. SHE ASKED ME TO HOLD AND SHE WOULD SPEAK WITH JOE. AFTER A VERY BRIEF HOLD, SHE CAME BACK AND SAID "WE HAVE A DETERMINATION, BUT WE ARE NOT GOING TO BE ABLE TO ACCEPT THE PATIENT". THANKED HER FOR HER TIME AND THIS WAS RELAYED TO [facility] AND TYLER [facility]ON. DCP- Discharge Planning Updated by [id number]: Claudio London on 10/29/17 1:[address] Patient Name: NADIRA MAXWELLNALLY Encounter No: [id number] : 1960 Primary Insurance: MEDICARE A & B Anticipated DC Date: 10-27-2017 Planned Disposition: Prison Facility External Planned Provider: [facility], MEDICARE REHAB BED DCP follow-up note: CM CALLED [facility], , SPOKE TO HEMANTH WHO INFORMED CM THAT NO DECISION HAS BEEN MADE BY [facility] (DI[facility]YSIS [facility])YET. CM WAITING [facility] DIALYSIS [facility] ACCEPTANCE IN ORDER FOR [facility] TO EVEN CONSIDER PT FOR PLACEMENT. Claudio London, CASE MANAGEMENT DCP- Discharge Planning Updated by [id number]: Claudio London on 10/26/17 2:[address] Patient Name: NADIRA Cid IRON Encounter No: [id number] : 1960 Primary Insurance: MEDICARE A & B Anticipated DC Date: 10-27-2017 Planned Disposition: Prison Facility External Planned Provider: [facility], MEDICARE REHAB BED DCP follow-up note: CM RECEIVED ORDER REGARDING INQUIRING ABOUT PT BEING TRANSFERRED TO [facility]. CM MET WITH PT IN ROOM, DISCUSSED INTERMEDIATE FACILITY PLACEMENT. PT IS NOT YET FULLY DECIDED BUT WOULD LIKE CM TO SEND REFERRAL TO SEE WHAT IS POSSIBLE. PT REPORTS SHE HAS ONLY TWO OPTIONS, HOSPICE OR THE ASSISTED. CHOICE FOR [facility] SIGNED. IMPORTANT MESSAGE FROM MEDICARE PROVIDED AND DISCUSSED. CM CALLED [facility], , SPOKE TO HEMANTH (MANUFACTURER REPRESENTATIVE) WHO INFORMED CM THAT PT'S SPOUSE CAME BY LAST WEEK AND TALKED TO HER ABOUT PT. HEMANTH REPORTS THAT PT WILL HAVE TO BE ACCEPTED BY [facility] PRIOR TO THEM CONSIDERING HER FOR PLACEMENT IN THE FACILITY. THE DIALYSIS UNIT IS OPEN ONLY ON THURSDAY, THURSDAY AND THURSDAY. CM FAXED REFERRAL TO [facility] AT [phone]. CM CALLED MARV ALBERTS OF [facility] WHO ADVISED THAT SHE WILL WORK ON DIALYSIS UNIT PLACEMENT WITH [facility] AND PT WILL REQUIRE NEW HEP PANEL. CM NOTIFIED ROBERTO HERNANDEZ OF NEEDED LABS. CM WAITING [facility] ACCEPTANCE IN ORDER FOR [facility] TO EVEN CONSIDER PT FOR PLACEMENT. Claudio London, CASE MANAGEMENT DCP- Discharge Planning Updated by [id number]: Claudio London on 10/23/17 10:[address] Patient Name: NADIRA FOX Encounter No: [id number] : 1960 Primary Insurance: MEDICARE A & B Anticipated DC Date: Planned Disposition: TO BE DETERMINED External Planned Provider: [facility]ERMINED DCP follow-up note: CM SPOKE TO RENAL NURSE HEMANT REGARDING DOCTORS NOTE INDICATING POSSIBLE [facility] TRANSFER. RENAL NURSE WILL SPEAK TO THE DOCTOR REGARDING NEED FOR [facility] TRANSFER. CM SPOKE TO PT REGARDING POSSIBILITY OF [facility] TRANSFER, PT'S SPOUSE REPORTS HE WILL SUPPORT PT IN ANY DECISION SHE MAKES. PT STATES SHE WOULD CONSENT TO TRANSFER IF THE DOCTOR THINKS SHE NEEDS IT. ROBERTO ROBLES HOUSE INFORMED CM THAT PT HAS BEEN DECLINED PREVIOUSLY AT [facility] BY DR. PAKO WALKER PER DR. GARCIA' NOTE. PT HAS BEEN PREVIOUSLY DECLINED BY [facility] ON 10-13-17. PT HAS BEEN DECLINED BY [facility], [place] (LTACH). CM HAS PREVIOUSLY OFFERED LTACH EVALUATIONS IN [place], PT DECLINED. CM HAS PREVIOUSLY OFFERED TO EXPLORE ONE SKILLED NUSING PLACEMENT WITH DIALYSIS UNIT IN [facility], PT DECLINED. CM HAS PROVIDED HOSPICE INFORMATION, PT WAS CONSIDERING. CM WAITING ON PT'S DISCHARGE PLANNING DECISION WELL IF DR. MACKENZIE IS THINKING OF ATTEMPTING [facility] TRANSFER AGAIN. Claudio London CASE MANAGEMENT DCP- Discharge Planning Updated by [id number]: Claudio London on 10/19/17 4:[address] Patient Name: NADIRA FOX Encounter No: [id number] : 1960 Primary Insurance: MEDICARE A & B Anticipated DC Date: Planned Disposition: HOSPICE VS LONGTERM ACUTE CARE External Planned Provider: TO BE DETERMINED DCP follow-up note: CM SPOKE TO TITO OF [facility]ACH IN [place] DECLINED; CM RECEIVED ORDER FOR HOSPICE CONSULT. CM MET WITH PT AND SPOUSE IN ROOM TO DISCUSS [facility] DECLINATION AND DISCHARGE PLANNING. PT WANTED TO KNOW WHAT OPTIONS ARE AVAILABLE. OPTIONS OF HOSPICE, LTACH REFERRALS IN [place] AT [facility] AND [facility] INTERMEDIATE FACILITY REFERRAL IN [facility] HAS DIALYSIS UNIT INSIDE WERE DISCUSSED. PT'S SPOUSE WAS NOT HAPPY OF ONE DOCTORS DISCUSSION OF HIS YAZDANISM BELIEFS WITH PT. CM APOLOGIZED IF THERE WERE ANY PROBLEMS, POINTED OUT THAT WITH PT BEING AT A YOUNG AGE, THESE CONVERSATIONS ARE DIFFULT AT BEST AND EVERYONE IS TRYING TO OFFER THE BEST TREATMENT, COMFORT AND OPTIONS FOR PATIENT. PT'S SPOUSE REPORTS HE WILL SUPPORT PT IN ANY DECISION SHE MAKES BUT STATES IT HAS TO BE HER DECISION. CM EXPLAINED THAT THE MAJOR POINT THAT PT MUST OVERCOME IS THE INABILITY TO SIT FOR OUTPATIENT DIALYSIS. PT WILL PARTICIPATE WITH THERAPY BUT DOES NOT THINK SHE WILL BE ABLE TO EVER SIT UP FOR OUTPATIENT DIALYSIS AGAIN. PT TEARFUL. PT ASKED CM FOR HOSPICE INFORMATION, PT REFUSED FURTHER REFERRALS AND IS CONSIDERING ALL OPTIONS WITH HER SPOUSE. CM WAITING PT DECISION REGARDING DISCHARGE PLAN. Claudio London Appended by Claudio London on 10/19/2017 17:03 CDT: IMPORTANT MESSAGE FROM MEDICARE PROVIDED AND EXPLAINED. BRIA GERARD DCP- Discharge Planning Updated by [id number]: Claudio London on 10/15/17 10:[address] Patient Name: NADIRA FOX Encounter No: [id number] : 1960 Primary Insurance: MEDICARE A & B Anticipated DC Date: Planned Disposition: Skilled Nursing Acute Care Facility External [facility] DCP follow-up note: CM FAXED REFERRAL TO [facility], , FOR LTACH CONSIDERATION. CM CALLED DOMENICO OF [facility] AND LEFT MESSAGE ASKING FOR RETURN CALL TO DISCUSS REFERRAL, . CM WAITING LONGTERM ACUTE CARE HOSPITAL ADMISSION DETERMINATION FROM [facility]. Claudio London, CASE MANAGEMENT Appended by Claudio London on 10/15/2017 11:29 CDT: CM RECEIVED CALL FROM TITO OF [facility], , WHO RECEIVED REFERRAL AND WILL EVALUATE FOR LTACH ADMISSION AT [facility]. CM WAITING LONGTERM ACUTE CARE HOSPITAL ADMISSION DETERMINATION FROM [facility]. Claudio London CASE IDALIA DCP- Discharge Planning Updated by [id number]: Claudio London on 10/14/17 4:[address] Patient Name: NADIRA FOX Encounter No: [id number] : 1960 Primary Insurance: MEDICARE A & B Anticipated DC Date: Planned Disposition: LONGTERM ACUTE CARE FACILITY External Planned Provider: [facility] DCP follow-up note: CM RECEIVED ORDER FOR LTACH EVALUATION, MET WITH PT IN ROOM, DISCUSSED LTACH PROVIDERS AND LOCATIONS. PT IS WILLING FOR LTACH IN [place], WAS JUST IN [facility] ABOUT ONE MONTH AGO AND WOULD LIKE EVALUATION THERE. CM CALLED DOMENICO OF [facility] AND LEFT MESSAGE ASKING FOR RETURN CALL TO DISCUSS REFERRAL, . CM TO FAX REFERRAL SOON POSSIBLE TO [facility] FOR LTACH CONSIDERATION. Claudio London DCP- Discharge Planning Updated by [id number]: Estrella Javier on 10/08/17 6:[address] CM met with patient to assess complete initial dc planning assessment. CM educated the patient on the CM role and she gave consent to complete assessment. Patient reports she lives at home with her spouse, Bienvenido. She reports she is mostly dependent in her care at home, requiring assist with bathing, dressing, medication management. Unsure if patient will require additional services at this time. She will require resumption of HHS with [facility] at discharge, if dc home. PCP: Dr. Mackenzie. Pharmacy: [facility]. DME: Glucometer, Hospital bed, air mattress, w/c, walker at home. CM will continue to follow and will assist as needed with dc plans/needs. DCPIA - Discharge Planning Initial Assessment Updated by [id number]: Estrella Javier on 10/08/17 7:27 pm * Is the patient Alert and Oriented? Yes * How many steps to enterexit or inside your home? * PCP Dr. Mackenzie * Pharmacy [facility] * Preadmission Environment Home with Family * ADLs Partial Dependent * Partial ADLs (Assistance needed) Bathing Dressing Eating Medication Management * Equipment Wheelchair Wound Supplies * List name and contact numbers for known caregivers / representatives who currently or will assist patient after discharge: Bienvenido Fox (spouse) [phone] patient home upon dc * Verbal permission to speak to the caregivers and representatives has been obtained from the patient. Yes * Community resources currently utilized Home Health * Please name any agencies selected above. [facility]--Dr. Diaz * Can the patient safely return to the preadmission environment? Yes * Has this patient been hospitalized within the prior 30 days at any hospital? Yes External Providers External Provider: [facility] Next Contact Date: 01/05/2018 Service Request Date: Service Type: Resolution: Reviewer: Comments: External Provider: [facility] Next Contact Date: 01/05/2018 Service Request Date: Service Type: Resolution: Reviewer: Comments: External Provider: [facility] Next Contact Date: 11/02/2017 Service Request Date: Service Type: Resolution: Reviewer: Comments: External Provider: [facility] Next Contact Date: 11/02/2017 Service Request Date: Service Type: Resolution: Reviewer: Comments: External Provider: OTHER-OTHER Next Contact Date: 10/27/2017 Service Request Date: Service Type: Resolution: Reviewer: Comments: External Provider: [facility] Next Contact Date: 10/15/2017 Service Request Date: Service Type: Resolution: Reviewer: Comments: Coverage Notice Reviewer: DEBBIE London Notice Issued Date-Time: 10/19/2017 14:40 Notice Type: IM Discharge Notice Notice Delivered To: Patient Relationship to Patient: Starchmaker Name: Delivery Method: HAND - Hand Delivered Rachelle Days: Prior Verbal Notification: Recipient Understood Notice: Yes Recipient Signature: Yes Med Rec Note Co-signed by Attending: Coverage Notice Comment: Reviewer: DEBBIE London Notice Issued Date-Time: 10/26/2017 12:20 Notice Type: Patient Choice Letter Notice Delivered To: Patient Relationship to Patient: Starchmaker Name: Delivery Method: HAND - Hand Delivered Rachelle Days: Prior Verbal Notification: Recipient Understood Notice: Yes Recipient Signature: Yes Med Rec Note Co-signed by Attending: Coverage Notice Comment: [facility] Reviewer: DEBBIE London Notice Issued Date-Time: 10/26/2017 12:20 Notice Type: IM Discharge Notice Notice Delivered To: Patient Relationship to Patient: Starchmaker Name: Delivery Method: HAND - Hand Delivered Rachelle Days: Prior Verbal Notification: Recipient Understood Notice: Yes Recipient Signature: Yes Med Rec Note Co-signed by Attending: Coverage Notice Comment: Reviewer: [id number] Carol Hernandez Notice Issued Date-Time: 11/05/2017 9:49 Notice Type: Patient Choice Letter Notice Delivered To: Patient Relationship to Patient: Self Starchmaker Name: Delivery Method: - Rachelle Days: Prior Verbal Notification: Recipient Understood Notice: Recipient Signature: Med Rec Note Co-signed by Attending: Coverage Notice Comment: Reviewer: DEBBIE London Notice Issued Date-Time: 01/04/2018 10:50 Notice Type: Patient Choice Letter Notice Delivered To: Patient Relationship to Patient: Starchmaker Name: Delivery Method: HAND - Hand Delivered Rachelle Days: Prior Verbal Notification: Recipient Understood Notice: Yes Recipient Signature: Yes Med Rec Note Co-signed by Attending: Coverage Notice Comment: [facility] Reviewer: DEBBIE London Notice Issued Date-Time: 01/04/2018 10:50 Notice Type: IM Discharge Notice Notice Delivered To: Patient Relationship to Patient: Starchmaker Name: Delivery Method: HAND - Hand Delivered Rachelle Days: Prior Verbal Notification: Recipient Understood Notice: Yes Recipient Signature: Yes Med Rec Note Co-signed by Attending: Coverage Notice Comment: Reviewer: [id number] Carol London Notice Issued Date-Time: 01/12/2018 15:40 Notice Type: IM Discharge Notice Notice Delivered To: Patient Relationship to Patient: Starchmaker Name: Delivery Method: HAND - Hand Delivered Rachelle Days: Prior Verbal Notification: Recipient Understood Notice: Yes Recipient Signature: Yes Med Rec Note Co-signed by Attending: Coverage Notice Comment: Patient Name: NADIRA FOX Page [id number] All edits/amendments must be made on the electronic document DICTATION DATE: 01/15/18 1525 FIBERGLASS AUTOBODY REPAIRER: 01/15/18 1525 RPT#: [id number] DC DATE: STATUS: ADM IN [facility] [address] [place] [address] END OF REPORT
--- NOTE | ~2017-10-08 | OP ---
PATIENT NAME: NADIRA PERDUE MEDICAL RECORD: [id number] :58 LOCATION:D.M2 D.2108 ADMISSION DATE:10/08/17 SURGEON: LLUVIA SOW MD DATE OF OPERATION: 12/17/2017 PREOPERATIVE DIAGNOSES: Malfunctioning HemoSplit catheter in a patient with end-stage renal disease that does not have peripheral access is currently ready for percutaneous access. POSTOPERATIVE DIAGNOSES: Malfunctioning HemoSplit catheter in a patient with end-stage renal disease that does not have peripheral access is currently ready for percutaneous access. Fibrin sheath around the catheter. PROCEDURES: 1. Nonselective venogram of the right innominate vein. 2. A 12 mm balloon angioplasty, lysis of the fibrin sheath. 3. Placement of a new 23-cm HemoSplit catheter under fluoroscopic guidance as well. 4. Immediate surgeon interpretation of the fluoroscopic images. SURGEON: Lluvia Sow MD PIPE ASSEMBLY WORKER: None. BLOOD LOSS: Minimal. ANESTHESIA: General. COMPLICATIONS: None. The risks, possible complications, and alternatives to the procedure were explained to the patient. She elects to proceed. No radiologist was present for this procedure. Static and sitting fluoroscopic images were obtained and are kept in the PACS system. The surgeon interpretation of the radiographic images is dictated within the body of this operative note. OPERATIVE COURSE: The patient was conveyed to the operating room electively on 12/17/2017. General anesthesia was induced by the anesthesia staff. The chest and right neck were sterilely prepped and draped. I bluntly dissected up along the HemoSplit catheter tract. I grasped the cuff. I then withdrew the catheter a bit, so that the tips of the catheter were within the right innominate vein. Through the catheter, utilizing a hand injection technique, I performed a venogram, which did reveal a fibrin sheath. A 0.035 Glidewire Advantage was then advanced into the right side of the heart and the HemoSplit catheter was removed over the wire. Over the wire I advanced a 12 mm angioplasty balloon. This was inflated in the right innominate vein. I then forcefully moved it back and forth from the superior vena cava up to the entry site of the wire into the vascular system, which was in the internal jugular vein. This was a balloon lysis of this fibrin sheath. I then deflated the balloon and removed it over the wire. I loaded and advanced OPERATIVE REPORT [id number] NADIRA PERDUE a new 23-cm HemoSplit catheter, which is a dual lumen cuffed hemodialysis catheter over the wire. I then buried the cuff into the subcutaneous tissues. The Glidewire Advantage was then removed. The image over the mediastinum revealed a HemoSplit catheter, which was well placed and the longest tip of the HemoSplit catheter appeared to be at the cavoatrial junction. Both lumens flushed easily and aspirated dark, nonpulsatile blood. I sutured the flange of the HemoSplit catheter to the underlying skin with 2-0 nylons. I then topped off both lumens of the HemoSplit catheter with the appropriate amount of concentrated heparin. A sterile dressing was applied. The patient was then extubated and conveyed to the post-anesthesia care unit where she was in stable condition. TRANSINT:[id number] Voice Confirmation ID: [id number] DOCUMENT ID: [id number] LLUVIA SOW MD at 1816 CC: GIA MACKENZIE MD and IMELDA AGARWAL MD [id number] DICTATION DATE: 12/21/17 1432 TYPE BAR AND SEGMENT ASSEMBLER: 12/21/17 1526 ADM IN [facility] [address] [place] [address]
--- NOTE | ~2017-10-08 | OP ---
PATIENT NAME: NADIRA PERDUE MEDICAL RECORD: [id number] :58 LOCATION:D.M2 D.2108 ADMISSION DATE:10/08/17 SURGEON: SIMONE EM MD DATE OF OPERATION: 12/30/2017 PREOPERATIVE DIAGNOSES: 1. End-stage renal disease. 2. Diabetes mellitus. 3. Hypertension. 4. Calciphylaxis. 5. Morbid obesity. POSTOPERATIVE DIAGNOSES: 1. End-stage renal disease. 2. Diabetes mellitus. 3. Hypertension. 4. Calciphylaxis. 5. Morbid obesity. PROCEDURE: Laparoscopic peritoneal dialysis catheter placement in the right lower quadrant. SURGEON: Simone Em MD REPORT OF PROCEDURE: The patient's abdomen was prepped and draped in sterile fashion. A Veress needle was inserted in the left upper quadrant and the abdomen was insufflated. A 5-mm Visiport trocar was then inserted in the abdomen. We could see the Veress needle and there was no sign of any injury to bowel or surrounding structures. At this point, the Veress needle was removed and a 5-mm trocar was placed in the midline just above the umbilicus. A final 5-mm trocar was placed in the right lower quadrant projecting from the medial right lower quadrant down to the lower midline of the abdomen. I placed a grasper through the 2 lower quadrant trocars and the right lower quadrant trocar was removed. Through this, we were able to pull the right-sided peritoneal dialysis catheter and placed it into the abdominal cavity. I assured that the sheaths were in good position at the peritoneal opening and the skin. The pigtail was then placed in the pelvis and checked the pigtail by flushing water and heparinized saline through it and it flushed and aspirated easily. The catheter was sutured into place with an interrupted 3-0 Prolene. The trocars and insufflation were then removed. The incision sites were all infused with a total of 10 mL of 0.25% Marcaine with epinephrine and then closed with subcutaneous 5-0 Monocryl. COMPLICATIONS: None. CONDITION: Stable. ANESTHESIA: General endotracheal and local. BLOOD LOSS: Minimal. TRANSINT:[id number] Voice Confirmation ID: [id number] DOCUMENT ID: [id number] OPERATIVE REPORT [id number] NADIRA PERDUE SIMONE EM MD at 0801 CC: [id number] DICTATION DATE: 12/30/17 1240 CONSTRUCTION ASSISTANT: 12/30/17 1323 ADM IN [place] [id number] [facility], [facility]
[~2017-10-08 12:13] MED LIST changes: +AMOXIL250 M1 PO; +LYRICA75 MG PO; +MEGACE400 MG/10 PO; +MONODOX100 MG PO; +TOPROL XL100 MG PO
[2017-10-08 15:03] LABS: WBC 27.4 10x3/uL (4.8-10.8)
[2017-10-08 15:04] LABS: HEMATOCRIT 32.3 % (36.0-48.0); HEMOGLOBIN 10.9 g/dL (12-16); MCH 29.1 pg (26.0-34.0); MCHC 33.7 g/dL (31.0-37.0); MCV 86.1 fL (80.0-100.0); MEAN PLATELET VOLUME 9.7 fL (7.4-10.4); PLATELET COUNT 767 10x3/uL (130-400); RBC 3.75 10x6/uL (4.00-5.40); RDW 18.3 % (11.5-14.5)
[2017-10-08 15:06] LABS: ALBUMIN 1.8 g/dL (3.4-5.0); ANION GAP 16.6 mmol/L (8-16); BILIRUBIN - TOTAL 1.01 mg/dL (0.2-1.3); CALCIUM 8.3 mg/dL (8.5-10.1); CARBON DIOXIDE 26.9 mmol/L (21.0-32.0); CREATININE - SERUM 2.6 mg/dL (0.6-1.3); POTASSIUM - SERUM 3.5 mmol/L (3.5-5.1); PROTEIN - SERUM 7.8 g/dL (6.4-8.2)
[2017-10-08 15:48] LABS: MAGNESIUM - SERUM 2.1 mg/dL (1.8-2.4); PHOSPHOROUS 3.2 mg/dL (2.5-4.9)
[2017-10-08 15:54] LABS: BASOPHILS 1 % (0-2); LYMPHOCYTES 15 % (15-50); MONOCYTES 1 % (2-11); NEUTROPHILS 81 % (40-80); PLATELET ESTIMATE INCREASED
[2017-10-08 15:55] LABS: ROULEAUX OCC
[2017-10-08 20:00] VITALS: BP 163/57
[2017-10-08] MEDS ORDERED: K-DUR20 MEQ PO (20:00)
[2017-10-08] MEDS ORDERED: PERCOCET 10/3251 TA1 PO (20:01)
[2017-10-09 00:26] VITALS: BP 163/57; BMI 34.0
[2017-10-09 01:00] VITALS: BP 157/63
[2017-10-09 05:11] VITALS: BP 177/77
[2017-10-09 08:16] VITALS: BP 137/59
[2017-10-09 11:25] LABS: BASOPHILS 0.4 % (0-2); EOSINOPHILS 0.8 % (0-7); HEMATOCRIT 29.6 % (36.0-48.0); HEMOGLOBIN 9.7 g/dL (12-16); IMMATURE GRANULOCYTES 5.3 % (0-5); MCH 28.7 pg (26.0-34.0); MCHC 32.8 g/dL (31.0-37.0); MCV 87.6 fL (80.0-100.0); MEAN PLATELET VOLUME 9.4 fL (7.4-10.4); MONOCYTES 10.2 % (2-11); NEUTROPHILS 65.3 % (40-80); PLATELET COUNT 696 10x3/uL (130-400); RBC 3.38 10x6/uL (4.00-5.40); RDW 18.3 % (11.5-14.5); WBC 25.2 10x3/uL (4.8-10.8)
[2017-10-09 11:35] LABS: ANION GAP 20.8 mmol/L (8-16); CALCIUM 7.5 mg/dL (8.5-10.1); CARBON DIOXIDE 22.8 mmol/L (21.0-32.0); MAGNESIUM - SERUM 2.2 mg/dL (1.8-2.4)
[2017-10-09 11:41] LABS: PHOSPHOROUS 6.6 mg/dL (2.5-4.9); POTASSIUM - SERUM 4.6 mmol/L (3.5-5.1)
[2017-10-09 12:25] VITALS: BMI 34.0
[2017-10-09 13:53] VITALS: Ht 160 cm; Wt 2.8 kg
[2017-10-09 15:48] VITALS: BP 160/63
[2017-10-09 20:00] VITALS: BP 156/68
[2017-10-10 01:00] VITALS: BP 106/67
[2017-10-10 04:30] VITALS: BP 153/45
[2017-10-10 05:15] LABS: HEMATOCRIT 27.7 % (36.0-48.0); HEMOGLOBIN 8.9 g/dL (12-16); MCH 28.3 pg (26.0-34.0); MCHC 32.1 g/dL (31.0-37.0); MCV 88.2 fL (80.0-100.0); MEAN PLATELET VOLUME 9.5 fL (7.4-10.4); PLATELET COUNT 669 10x3/uL (130-400); RBC 3.14 10x6/uL (4.00-5.40); RDW 18.3 % (11.5-14.5); WBC 22.3 10x3/uL (4.8-10.8)
[2017-10-10 05:20] LABS: ANION GAP 20.2 mmol/L (8-16); CALCIUM 7.7 mg/dL (8.5-10.1); CARBON DIOXIDE 22.8 mmol/L (21.0-32.0); CREATININE - SERUM 4.9 mg/dL (0.6-1.3); MAGNESIUM - SERUM 2.4 mg/dL (1.8-2.4); PHOSPHOROUS 7.3 mg/dL (2.5-4.9); VANCOMYCIN - RANDOM 20.4 ug/mL (10.0-20.0)
[2017-10-10 05:50] LABS: EOSINOPHILS 2 % (0-7); LYMPHOCYTES 20 % (15-50); MONOCYTES 13 % (2-11); NEUTROPHILS 62 % (40-80); PLATELET ESTIMATE INCREASED
[2017-10-10 10:05] VITALS: BP 148/48
[2017-10-10 16:58] VITALS: BP 141/31
[2017-10-10 21:00] VITALS: BP 151/82
[2017-10-11 02:30] VITALS: BP 154/71
[2017-10-11 05:00] VITALS: BP 176/76
[2017-10-11 05:20] LABS: BASOPHILS 0.4 % (0-2); EOSINOPHILS 0.8 % (0-7); HEMATOCRIT 28.2 % (36.0-48.0); HEMOGLOBIN 9.4 g/dL (12-16); IMMATURE GRANULOCYTES 4.5 % (0-5); LYMPHOCYTES 20.5 % (15-50); MCH 28.3 pg (26.0-34.0); MCHC 33.3 g/dL (31.0-37.0); MCV 84.9 fL (80.0-100.0); MEAN PLATELET VOLUME 9.5 fL (7.4-10.4); NEUTROPHILS 63.8 % (40-80); PLATELET COUNT 654 10x3/uL (130-400); RBC 3.32 10x6/uL (4.00-5.40); RDW 17.6 % (11.5-14.5); WBC 24.2 10x3/uL (4.8-10.8)
[2017-10-11 05:25] LABS: ANION GAP 29.5 mmol/L (8-16); CALCIUM 8.6 mg/dL (8.5-10.1); CARBON DIOXIDE 18.5 mmol/L (21.0-32.0); CREATININE - SERUM 3.8 mg/dL (0.6-1.3)
[2017-10-11 09:07] VITALS: BP 150/60
[2017-10-11 12:51] VITALS: BP 157/43
[2017-10-11 16:41] VITALS: BP 113/47
[2017-10-11 20:00] VITALS: BP 147/60
[2017-10-12 01:00] VITALS: BP 174/77
[2017-10-12 04:00] VITALS: BP 169/67
[2017-10-12 05:21] LABS: BASOPHILS 0.4 % (0-2); HEMATOCRIT 26.7 % (36.0-48.0); IMMATURE GRANULOCYTES 4.5 % (0-5); LYMPHOCYTES 23.2 % (15-50); MCH 28.4 pg (26.0-34.0); MCHC 33.7 g/dL (31.0-37.0); MCV 84.2 fL (80.0-100.0); MEAN PLATELET VOLUME 9.2 fL (7.4-10.4); MONOCYTES 9.8 % (2-11); NEUTROPHILS 61.1 % (40-80); PLATELET COUNT 618 10x3/uL (130-400); RBC 3.17 10x6/uL (4.00-5.40); RDW 17.7 % (11.5-14.5); WBC 24.5 10x3/uL (4.8-10.8)
[2017-10-12 05:27] LABS: ANION GAP 27.3 mmol/L (8-16); CALCIUM 8.2 mg/dL (8.5-10.1); CARBON DIOXIDE 18.9 mmol/L (21.0-32.0); CREATININE - SERUM 4.7 mg/dL (0.6-1.3); POTASSIUM - SERUM 4.2 mmol/L (3.5-5.1)
[2017-10-12 08:52] VITALS: BP 147/82
[2017-10-12 11:29] VITALS: BP 200/61
[2017-10-12 16:15] VITALS: BP 186/63
[2017-10-12 20:03] VITALS: BP 155/62
[2017-10-13] VITALS: BP 190/58
[2017-10-13 04:00] VITALS: BP 190/66
[2017-10-13 06:09] LABS: BASOPHILS 0.4 % (0-2); EOSINOPHILS 1.3 % (0-7); HEMATOCRIT 25.5 % (36.0-48.0); HEMOGLOBIN 8.6 g/dL (12-16); IMMATURE GRANULOCYTES 4.1 % (0-5); LYMPHOCYTES 19.9 % (15-50); MCH 28.6 pg (26.0-34.0); MCHC 33.7 g/dL (31.0-37.0); MCV 84.7 fL (80.0-100.0); MEAN PLATELET VOLUME 9.3 fL (7.4-10.4); MONOCYTES 9.6 % (2-11); NEUTROPHILS 64.7 % (40-80); PLATELET COUNT 616 10x3/uL (130-400); RBC 3.01 10x6/uL (4.00-5.40); RDW 17.8 % (11.5-14.5); WBC 23.8 10x3/uL (4.8-10.8)
[2017-10-13 06:53] LABS: ALBUMIN 1.5 g/dL (3.4-5.0); BILIRUBIN - DIRECT 0.44 mg/dL (0.00-0.30); BILIRUBIN - INDIRECT 0.28 mg/dL (0.00-1.00); BILIRUBIN - TOTAL 0.72 mg/dL (0.2-1.3); CALCIUM 7.6 mg/dL (8.5-10.1); CARBON DIOXIDE 15.1 mmol/L (21.0-32.0); CREATININE - SERUM 5.7 mg/dL (0.6-1.3); PHOSPHOROUS 7.2 mg/dL (2.5-4.9); VANCOMYCIN - RANDOM 15.4 ug/mL (10.0-20.0)
[2017-10-13 06:54] LABS: ANION GAP 34.2 mmol/L (8-16); POTASSIUM - SERUM 5.3 mmol/L (3.5-5.1)
[2017-10-13 07:43] VITALS: BP 180/71
[2017-10-13 15:19] VITALS: BP 182/94
[2017-10-13 20:00] VITALS: BP 185/70
[2017-10-14] VITALS: BP 167/81
[2017-10-14 04:00] VITALS: BP 170/70
[2017-10-14 06:15] LABS: BASOPHILS 0.4 % (0-2); HEMATOCRIT 25.9 % (36.0-48.0); HEMOGLOBIN 8.6 g/dL (12-16); LYMPHOCYTES 17.8 % (15-50); MCH 28.1 pg (26.0-34.0); MCHC 33.2 g/dL (31.0-37.0); MCV 84.6 fL (80.0-100.0); MEAN PLATELET VOLUME 9.4 fL (7.4-10.4); MONOCYTES 11.1 % (2-11); NEUTROPHILS 65.7 % (40-80); PLATELET COUNT 609 10x3/uL (130-400); RBC 3.06 10x6/uL (4.00-5.40); RDW 17.5 % (11.5-14.5); WBC 22.6 10x3/uL (4.8-10.8)
[2017-10-14 06:30] LABS: % SATURATION 25 % (15-55); IRON 18 ug/dl (35-150); TOTAL IRON BIND CAPACITY 72 ug/dl (260-445)
[2017-10-14 06:38] LABS: UNSAT IRON BIND CAPACITY 54 ug/dl (150-375)
[2017-10-14 07:09] LABS: CALCIUM 8.5 mg/dL (8.5-10.1); CARBON DIOXIDE 15.3 mmol/L (21.0-32.0)
[2017-10-14 07:11] LABS: ANION GAP 34.7 mmol/L (8-16); CREATININE - SERUM 4.1 mg/dL (0.6-1.3); PHOSPHOROUS 4.8 mg/dL (2.5-4.9)
[2017-10-14 09:10] VITALS: BP 119/39
[2017-10-14 12:00] VITALS: BP 174/73
[2017-10-14 16:37] VITALS: BP 151/59
[2017-10-14 21:08] VITALS: BP 136/57
[2017-10-15] VITALS: BP 104/53; BP 138/52
[2017-10-15 04:00] VITALS: BP 138/52
[2017-10-15 06:10] LABS: CARBON DIOXIDE 17.2 mmol/L (21.0-32.0); CREATININE - SERUM 4.8 mg/dL (0.6-1.3); PHOSPHOROUS 4.9 mg/dL (2.5-4.9); POTASSIUM - SERUM 4.2 mmol/L (3.5-5.1)
[2017-10-15 06:24] LABS: BASOPHILS 0.3 % (0-2); HEMATOCRIT 24.3 % (36.0-48.0); IMMATURE GRANULOCYTES 4.4 % (0-5); LYMPHOCYTES 20.8 % (15-50); MCH 27.9 pg (26.0-34.0); MCHC 32.9 g/dL (31.0-37.0); MCV 84.7 fL (80.0-100.0); MEAN PLATELET VOLUME 9.4 fL (7.4-10.4); MONOCYTES 10.1 % (2-11); NEUTROPHILS 63.4 % (40-80); PLATELET COUNT 575 10x3/uL (130-400); RBC 2.87 10x6/uL (4.00-5.40); RDW 17.9 % (11.5-14.5); WBC 21.3 10x3/uL (4.8-10.8)
[2017-10-15 08:23] LABS: FOLATE (FOLIC ACID) - SERUM 16.9 ng/mL (>3.0)
[2017-10-15 08:27] VITALS: BP 161/55
[2017-10-15 16:51] VITALS: BP 154/67
[2017-10-15 20:33] VITALS: BP 122/65
[2017-10-16 01:00] VITALS: BP 143/54
[2017-10-16 04:00] VITALS: BP 144/63
[2017-10-16 05:08] LABS: VANCOMYCIN - RANDOM 21.1 ug/mL (10.0-20.0)
[2017-10-16 05:11] LABS: PHOSPHOROUS 3.6 mg/dL (2.5-4.9)
[2017-10-16 08:39] VITALS: BP 160/54
[2017-10-16 12:17] VITALS: BP 151/77
[2017-10-16 16:32] VITALS: BP 163/70
[2017-10-16 20:00] VITALS: BP 159/72
[2017-10-17 01:00] VITALS: BP 146/67
[2017-10-17 05:09] VITALS: BP 138/59
[2017-10-17 05:36] LABS: BASOPHILS 0.3 % (0-2); EOSINOPHILS 0.7 % (0-7); HEMATOCRIT 25.3 % (36.0-48.0); HEMOGLOBIN 8.3 g/dL (12-16); IMMATURE GRANULOCYTES 5.7 % (0-5); MCH 28.2 pg (26.0-34.0); MCHC 32.8 g/dL (31.0-37.0); MCV 86.1 fL (80.0-100.0); MONOCYTES 10.2 % (2-11); NEUTROPHILS 62.1 % (40-80); PLATELET COUNT 587 10x3/uL (130-400); RBC 2.94 10x6/uL (4.00-5.40); RDW 17.8 % (11.5-14.5); WBC 22.9 10x3/uL (4.8-10.8)
[2017-10-17 05:39] LABS: ALBUMIN 1.8 g/dL (3.4-5.0); ANION GAP 21.3 mmol/L (8-16); BILIRUBIN - TOTAL 0.7 mg/dL (0.2-1.3); CALCIUM 7.9 mg/dL (8.5-10.1); CARBON DIOXIDE 19.8 mmol/L (21.0-32.0); CREATININE - SERUM 4.7 mg/dL (0.6-1.3); PHOSPHOROUS 4.1 mg/dL (2.5-4.9); POTASSIUM - SERUM 4.1 mmol/L (3.5-5.1); PROTEIN - SERUM 6.8 g/dL (6.4-8.2); VANCOMYCIN - RANDOM 19.5 ug/mL (10.0-20.0)
[2017-10-17 08:29] VITALS: BP 136/61
[2017-10-17 11:54] VITALS: BP 153/67
[2017-10-17 20:00] VITALS: BP 150/51
[2017-10-18 01:00] VITALS: BP 136/62
[2017-10-18 04:00] VITALS: BP 143/64
[2017-10-18 05:26] LABS: BASOPHILS 0.3 % (0-2); EOSINOPHILS 0.7 % (0-7); HEMOGLOBIN 9.1 g/dL (12-16); IMMATURE GRANULOCYTES 3.5 % (0-5); LYMPHOCYTES 15.2 % (15-50); MCH 28.3 pg (26.0-34.0); MCHC 32.5 g/dL (31.0-37.0); MCV 87.2 fL (80.0-100.0); MEAN PLATELET VOLUME 9.8 fL (7.4-10.4); MONOCYTES 10.3 % (2-11); PLATELET COUNT 524 10x3/uL (130-400); RBC 3.21 10x6/uL (4.00-5.40); RDW 17.9 % (11.5-14.5); WBC 23.1 10x3/uL (4.8-10.8)
[2017-10-18 05:49] LABS: ALBUMIN 1.7 g/dL (3.4-5.0); ANION GAP 19.7 mmol/L (8-16); BILIRUBIN - TOTAL 0.7 mg/dL (0.2-1.3); CALCIUM 8.2 mg/dL (8.5-10.1); CREATININE - SERUM 3.8 mg/dL (0.6-1.3); POTASSIUM - SERUM 3.7 mmol/L (3.5-5.1)
[2017-10-18 07:54] VITALS: BP 139/61
[2017-10-18 13:46] VITALS: BP 136/68
[2017-10-18 15:29] VITALS: BP 171/65
[2017-10-18 20:00] VITALS: BP 116/58
[2017-10-19 01:00] VITALS: BP 136/56
[2017-10-19 05:00] VITALS: BP 117/57
[2017-10-19 05:09] LABS: BASOPHILS 0.3 % (0-2); EOSINOPHILS 0.8 % (0-7); HEMATOCRIT 25.3 % (36.0-48.0); HEMOGLOBIN 8.4 g/dL (12-16); IMMATURE GRANULOCYTES 4.1 % (0-5); LYMPHOCYTES 17.9 % (15-50); MCH 28.7 pg (26.0-34.0); MCHC 33.2 g/dL (31.0-37.0); MCV 86.3 fL (80.0-100.0); MEAN PLATELET VOLUME 9.6 fL (7.4-10.4); MONOCYTES 8.6 % (2-11); NEUTROPHILS 68.3 % (40-80); PLATELET COUNT 530 10x3/uL (130-400); RBC 2.93 10x6/uL (4.00-5.40)
[2017-10-19 05:40] LABS: ALBUMIN 1.6 g/dL (3.4-5.0); ANION GAP 23.7 mmol/L (8-16); BILIRUBIN - TOTAL 0.7 mg/dL (0.2-1.3); PHOSPHOROUS 4.6 mg/dL (2.5-4.9); POTASSIUM - SERUM 4.7 mmol/L (3.5-5.1); VANCOMYCIN - RANDOM 20.1 ug/mL (10.0-20.0)
[2017-10-19 07:00] VITALS: BP 163/78
[2017-10-19 12:00] VITALS: BP 129/52
[2017-10-19 17:14] VITALS: BP 149/63
[2017-10-19 20:36] VITALS: BP 111/63
[2017-10-20] VITALS: BP 130/52
[2017-10-20 05:20] VITALS: BP 121/53
[2017-10-20 06:17] LABS: BASOPHILS 0.2 % (0-2); EOSINOPHILS 0.8 % (0-7); HEMATOCRIT 26.1 % (36.0-48.0); HEMOGLOBIN 8.6 g/dL (12-16); IMMATURE GRANULOCYTES 2.8 % (0-5); LYMPHOCYTES 17.3 % (15-50); MCH 28.5 pg (26.0-34.0); MCV 86.4 fL (80.0-100.0); MEAN PLATELET VOLUME 9.5 fL (7.4-10.4); MONOCYTES 8.9 % (2-11); PLATELET COUNT 498 10x3/uL (130-400); RBC 3.02 10x6/uL (4.00-5.40); RDW 17.9 % (11.5-14.5); WBC 20.2 10x3/uL (4.8-10.8)
[2017-10-20 06:56] LABS: ALBUMIN 1.5 g/dL (3.4-5.0); ANION GAP 23.1 mmol/L (8-16); BILIRUBIN - TOTAL 0.66 mg/dL (0.2-1.3); CALCIUM 7.3 mg/dL (8.5-10.1); CARBON DIOXIDE 19.9 mmol/L (21.0-32.0); CREATININE - SERUM 5.5 mg/dL (0.6-1.3); PROTEIN - SERUM 6.8 g/dL (6.4-8.2); VANCOMYCIN - RANDOM 18.9 ug/mL (10.0-20.0)
[2017-10-20 09:25] VITALS: BP 141/62
[2017-10-20 12:22] VITALS: BP 153/64
[2017-10-20 21:27] VITALS: BP 148/67
[2017-10-21 01:02] VITALS: BP 151/55
[2017-10-21 05:37] VITALS: BP 141/62
[2017-10-21 08:04] LABS: BASOPHILS 0.2 % (0-2); EOSINOPHILS 0.7 % (0-7); HEMATOCRIT 24.5 % (36.0-48.0); HEMOGLOBIN 7.8 g/dL (12-16); IMMATURE GRANULOCYTES 2.1 % (0-5); LYMPHOCYTES 12.4 % (15-50); MCH 28.1 pg (26.0-34.0); MCHC 31.8 g/dL (31.0-37.0); MCV 88.1 fL (80.0-100.0); MEAN PLATELET VOLUME 9.6 fL (7.4-10.4); MONOCYTES 9.6 % (2-11); PLATELET COUNT 499 10x3/uL (130-400); RBC 2.78 10x6/uL (4.00-5.40); RDW 17.9 % (11.5-14.5); WBC 18.9 10x3/uL (4.8-10.8)
[2017-10-21 08:27] LABS: ALBUMIN 1.8 g/dL (3.4-5.0); ANION GAP 17.3 mmol/L (8-16); BILIRUBIN - TOTAL 0.7 mg/dL (0.2-1.3); CALCIUM 7.9 mg/dL (8.5-10.1); CARBON DIOXIDE 24.6 mmol/L (21.0-32.0); CREATININE - SERUM 4.1 mg/dL (0.6-1.3); PHOSPHOROUS 4.1 mg/dL (2.5-4.9); POTASSIUM - SERUM 3.9 mmol/L (3.5-5.1); PRE-ALBUMIN 13.4 mg/dL (18.0-35.7); PROTEIN - SERUM 7.4 g/dL (6.4-8.2)
[2017-10-21 09:15] VITALS: BP 167/58
[2017-10-21 14:29] VITALS: BP 141/85
[2017-10-21 16:21] VITALS: BP 146/77
[2017-10-21 21:32] VITALS: BP 116/51
[2017-10-22 01:03] VITALS: BP 132/68
[2017-10-22 05:29] LABS: BASOPHILS 0.2 % (0-2); EOSINOPHILS 1.1 % (0-7); HEMATOCRIT 23.8 % (36.0-48.0); HEMOGLOBIN 7.6 g/dL (12-16); IMMATURE GRANULOCYTES 2.5 % (0-5); LYMPHOCYTES 14.4 % (15-50); MCH 28.4 pg (26.0-34.0); MCHC 31.9 g/dL (31.0-37.0); MCV 88.8 fL (80.0-100.0); MEAN PLATELET VOLUME 9.7 fL (7.4-10.4); MONOCYTES 8.4 % (2-11); NEUTROPHILS 73.4 % (40-80); PLATELET COUNT 507 10x3/uL (130-400); RBC 2.68 10x6/uL (4.00-5.40); RDW 17.8 % (11.5-14.5)
[2017-10-22 06:02] LABS: BILIRUBIN - TOTAL 0.75 mg/dL (0.2-1.3); CALCIUM 7.7 mg/dL (8.5-10.1); CARBON DIOXIDE 23.8 mmol/L (21.0-32.0); CREATININE - SERUM 4.8 mg/dL (0.6-1.3); PROTEIN - SERUM 7.3 g/dL (6.4-8.2)
[2017-10-22 06:08] LABS: POTASSIUM - SERUM 4.8 mmol/L (3.5-5.1)
[2017-10-22 08:13] VITALS: BP 142/64
[2017-10-22 12:51] VITALS: BP 114/69
[2017-10-22 21:23] VITALS: BP 130/51
[2017-10-23 01:38] VITALS: BP 129/54
[2017-10-23 04:53] VITALS: BP 151/69
[2017-10-23 05:12] LABS: BASOPHILS 0.3 % (0-2); EOSINOPHILS 0.5 % (0-7); HEMATOCRIT 25.9 % (36.0-48.0); HEMOGLOBIN 8.3 g/dL (12-16); IMMATURE GRANULOCYTES 2.2 % (0-5); LYMPHOCYTES 13.7 % (15-50); MCH 28.3 pg (26.0-34.0); MCV 88.4 fL (80.0-100.0); MEAN PLATELET VOLUME 9.8 fL (7.4-10.4); MONOCYTES 8.5 % (2-11); NEUTROPHILS 74.8 % (40-80); PLATELET COUNT 546 10x3/uL (130-400); RBC 2.93 10x6/uL (4.00-5.40); RDW 17.3 % (11.5-14.5); WBC 22.8 10x3/uL (4.8-10.8)
[2017-10-23 05:37] LABS: ALBUMIN 1.9 g/dL (3.4-5.0); ANION GAP 31.1 mmol/L (8-16); BILIRUBIN - TOTAL 0.62 mg/dL (0.2-1.3); CARBON DIOXIDE 19.4 mmol/L (21.0-32.0); PHOSPHOROUS 3.6 mg/dL (2.5-4.9); POTASSIUM - SERUM 4.5 mmol/L (3.5-5.1); PROTEIN - SERUM 6.8 g/dL (6.4-8.2); VANCOMYCIN - RANDOM 15.5 ug/mL (10.0-20.0)
[2017-10-23 05:39] LABS: CREATININE - SERUM 3.4 mg/dL (0.6-1.3)
[2017-10-23 09:09] VITALS: BP 106/64
[2017-10-23 11:53] VITALS: BP 122/56
[2017-10-23 16:50] VITALS: BP 128/73
[2017-10-23 22:57] VITALS: BP 152/124
[2017-10-24 02:57] VITALS: BP 127/77
[2017-10-24 05:25] LABS: BASOPHILS 0.2 % (0-2); EOSINOPHILS 1.1 % (0-7); HEMATOCRIT 24.3 % (36.0-48.0); HEMOGLOBIN 7.8 g/dL (12-16); IMMATURE GRANULOCYTES 2.5 % (0-5); LYMPHOCYTES 19.1 % (15-50); MCHC 32.1 g/dL (31.0-37.0); MCV 87.1 fL (80.0-100.0); MEAN PLATELET VOLUME 9.8 fL (7.4-10.4); MONOCYTES 8.2 % (2-11); NEUTROPHILS 68.9 % (40-80); PLATELET COUNT 525 10x3/uL (130-400); RBC 2.79 10x6/uL (4.00-5.40); RDW 17.3 % (11.5-14.5)
[2017-10-24 05:49] LABS: ANION GAP 28.3 mmol/L (8-16); BILIRUBIN - TOTAL 0.7 mg/dL (0.2-1.3); CALCIUM 8.5 mg/dL (8.5-10.1); CARBON DIOXIDE 18.3 mmol/L (21.0-32.0); POTASSIUM - SERUM 4.6 mmol/L (3.5-5.1); PROTEIN - SERUM 7.1 g/dL (6.4-8.2); VANCOMYCIN - RANDOM 25.8 ug/mL (10.0-20.0)
[2017-10-24 05:51] LABS: ALBUMIN 1.8 g/dL (3.4-5.0); CREATININE - SERUM 4.3 mg/dL (0.6-1.3)
[2017-10-24 05:58] VITALS: BP 133/56
[2017-10-24 08:33] VITALS: BP 124/57
[2017-10-24 16:44] VITALS: BP 120/60
[2017-10-24 21:57] VITALS: BP 159/39
[2017-10-25 01:43] VITALS: BP 155/40
[2017-10-25 05:20] LABS: BASOPHILS 0.2 % (0-2); EOSINOPHILS 0.8 % (0-7); HEMATOCRIT 28.9 % (36.0-48.0); IMMATURE GRANULOCYTES 1.9 % (0-5); LYMPHOCYTES 18.8 % (15-50); MCH 28.7 pg (26.0-34.0); MCHC 33.2 g/dL (31.0-37.0); MCV 86.3 fL (80.0-100.0); MEAN PLATELET VOLUME 9.6 fL (7.4-10.4); MONOCYTES 9.1 % (2-11); NEUTROPHILS 69.2 % (40-80); PLATELET COUNT 439 10x3/uL (130-400); RDW 16.8 % (11.5-14.5); WBC 18.1 10x3/uL (4.8-10.8)
[2017-10-25 05:21] LABS: HEMOGLOBIN 9.6 g/dL (12-16); RBC 3.35 10x6/uL (4.00-5.40)
[2017-10-25 05:45] LABS: ALBUMIN 1.7 g/dL (3.4-5.0); ANION GAP 26.1 mmol/L (8-16); BILIRUBIN - TOTAL 0.7 mg/dL (0.2-1.3); CALCIUM 8.1 mg/dL (8.5-10.1); CARBON DIOXIDE 18.1 mmol/L (21.0-32.0); PHOSPHOROUS 4.4 mg/dL (2.5-4.9); POTASSIUM - SERUM 4.2 mmol/L (3.5-5.1); PROTEIN - SERUM 7.2 g/dL (6.4-8.2)
[2017-10-25 06:17] VITALS: BP 154/82
[2017-10-25 08:18] VITALS: BP 147/62
[2017-10-25 12:28] VITALS: BP 129/54
[2017-10-25 16:30] VITALS: BP 123/43
[2017-10-25 21:01] VITALS: BP 146/52
[2017-10-26 00:58] VITALS: BP 126/87
[2017-10-26 06:11] LABS: BASOPHILS 0.2 % (0-2); EOSINOPHILS 0.6 % (0-7); HEMATOCRIT 28.2 % (36.0-48.0); HEMOGLOBIN 9.3 g/dL (12-16); IMMATURE GRANULOCYTES 1.2 % (0-5); LYMPHOCYTES 18.3 % (15-50); MCH 27.8 pg (26.0-34.0); MCV 84.4 fL (80.0-100.0); MONOCYTES 8.3 % (2-11); NEUTROPHILS 71.4 % (40-80); PLATELET COUNT 411 10x3/uL (130-400); RBC 3.34 10x6/uL (4.00-5.40); WBC 17.8 10x3/uL (4.8-10.8)
[2017-10-26 06:16] LABS: ALBUMIN 1.8 g/dL (3.4-5.0); BILIRUBIN - TOTAL 0.68 mg/dL (0.2-1.3); CALCIUM 7.2 mg/dL (8.5-10.1); CARBON DIOXIDE 16.6 mmol/L (21.0-32.0); CREATININE - SERUM 4.7 mg/dL (0.6-1.3); PROTEIN - SERUM 6.3 g/dL (6.4-8.2)
[2017-10-26 06:18] LABS: ANION GAP 32.4 mmol/L (8-16)
[2017-10-26 06:33] VITALS: BP 135/48
[2017-10-26 09:13] VITALS: BP 125/57
[2017-10-26 12:46] VITALS: BP 99/72
[2017-10-26 16:43] VITALS: BP 134/62
[2017-10-26 20:00] VITALS: BP 141/62
[2017-10-27] VITALS: BP 141/56
[2017-10-27 04:00] VITALS: BP 137/98
[2017-10-27 08:33] VITALS: BP 130/68
[2017-10-27 11:35] VITALS: BP 130/70
[2017-10-27 15:38] VITALS: BP 113/72
[2017-10-27 20:00] VITALS: BP 118/67
[2017-10-28 01:00] VITALS: BP 141/56
[2017-10-28 04:00] VITALS: BP 126/64
[2017-10-28 10:03] VITALS: BP 102/57
[2017-10-28 10:22] LABS: HEPATITIS C ANTIBODY <0.1 (0.0-0.9)
[2017-10-28 12:04] VITALS: BP 124/54
[2017-10-28 12:31] LABS: BASOPHILS 0.2 % (0-2); EOSINOPHILS 0.3 % (0-7); HEMOGLOBIN 9.7 g/dL (12-16); IMMATURE GRANULOCYTES 1.2 % (0-5); LYMPHOCYTES 15.4 % (15-50); MCH 28.8 pg (26.0-34.0); MCHC 32.3 g/dL (31.0-37.0); MEAN PLATELET VOLUME 9.6 fL (7.4-10.4); MONOCYTES 10.9 % (2-11); PLATELET COUNT 453 10x3/uL (130-400); RBC 3.37 10x6/uL (4.00-5.40); WBC 18.1 10x3/uL (4.8-10.8)
[2017-10-28 12:47] LABS: ANION GAP 23.1 mmol/L (8-16); BILIRUBIN - TOTAL 0.66 mg/dL (0.2-1.3); CREATININE - SERUM 4.2 mg/dL (0.6-1.3); POTASSIUM - SERUM 5.1 mmol/L (3.5-5.1); VANCOMYCIN - RANDOM 16.3 ug/mL (10.0-20.0)
[2017-10-28 12:48] LABS: ALBUMIN 1.8 g/dL (3.4-5.0)
[2017-10-28 18:11] VITALS: BP 131/53
[2017-10-28 20:41] VITALS: BP 119/50
[2017-10-29 01:00] VITALS: BP 117/61
[2017-10-29 04:00] VITALS: BP 119/53
[2017-10-29 07:24] VITALS: BP 136/55
[2017-10-29 16:39] VITALS: BP 167/88
[2017-10-29 21:48] VITALS: BP 150/62
[2017-10-30 01:00] VITALS: BP 147/64
[2017-10-30 04:00] VITALS: BP 148/67
[2017-10-30 08:36] VITALS: BP 147/60
[2017-10-30 11:32] VITALS: BP 156/78
[2017-10-30 12:02] LABS: HEMATOCRIT 31.5 % (36.0-48.0); HEMOGLOBIN 10.1 g/dL (12-16); MCH 28.3 pg (26.0-34.0); MCHC 32.1 g/dL (31.0-37.0); MCV 88.2 fL (80.0-100.0); MEAN PLATELET VOLUME 9.4 fL (7.4-10.4); PLATELET COUNT 459 10x3/uL (130-400); RBC 3.57 10x6/uL (4.00-5.40); RDW 16.4 % (11.5-14.5); WBC 20.3 10x3/uL (4.8-10.8)
[2017-10-30 12:14] LABS: ALBUMIN 1.7 g/dL (3.4-5.0); ANION GAP 20.8 mmol/L (8-16); BILIRUBIN - TOTAL 0.71 mg/dL (0.2-1.3); CALCIUM 7.6 mg/dL (8.5-10.1); CARBON DIOXIDE 24.3 mmol/L (21.0-32.0); CREATININE - SERUM 3.3 mg/dL (0.6-1.3); POTASSIUM - SERUM 5.1 mmol/L (3.5-5.1); PROTEIN - SERUM 6.7 g/dL (6.4-8.2); VANCOMYCIN - RANDOM 10.6 ug/mL (10.0-20.0)
[2017-10-30 13:28] LABS: ANISOCYTOSIS OCC; LYMPHOCYTES 14 % (15-50); MONOCYTES 16 % (2-11); NEUTROPHILS 68 % (40-80); PLATELET ESTIMATE INCREASED
[2017-10-30 15:51] VITALS: BP 142/58
[2017-10-30 20:05] VITALS: BP 143/70
[2017-10-31 00:38] VITALS: BP 132/58
[2017-10-31 04:00] VITALS: BP 149/64
[2017-10-31 04:48] LABS: BASOPHILS 0.2 % (0-2); EOSINOPHILS 0.9 % (0-7); HEMATOCRIT 28.7 % (36.0-48.0); HEMOGLOBIN 9.3 g/dL (12-16); IMMATURE GRANULOCYTES 1.4 % (0-5); MCH 28.6 pg (26.0-34.0); MCHC 32.4 g/dL (31.0-37.0); MCV 88.3 fL (80.0-100.0); MEAN PLATELET VOLUME 9.3 fL (7.4-10.4); MONOCYTES 9.6 % (2-11); NEUTROPHILS 72.9 % (40-80); PLATELET COUNT 489 10x3/uL (130-400); RBC 3.25 10x6/uL (4.00-5.40); RDW 16.3 % (11.5-14.5); WBC 19.7 10x3/uL (4.8-10.8)
[2017-10-31 05:15] LABS: ANION GAP 22.5 mmol/L (8-16); CALCIUM 8.1 mg/dL (8.5-10.1); CARBON DIOXIDE 23.1 mmol/L (21.0-32.0); POTASSIUM - SERUM 4.6 mmol/L (3.5-5.1); VANCOMYCIN - RANDOM 11.8 ug/mL (10.0-20.0)
[2017-10-31 05:24] LABS: CREATININE - SERUM 4.2 mg/dL (0.6-1.3)
[2017-10-31 08:04] VITALS: BP 154/62
[2017-10-31 15:55] VITALS: BP 161/47
[2017-10-31 20:53] VITALS: BP 145/75
[2017-11-01 00:58] VITALS: BP 130/57
[2017-11-01 04:54] VITALS: BP 134/54
[2017-11-01 05:41] LABS: BASOPHILS 0.2 % (0-2); EOSINOPHILS 0.6 % (0-7); HEMOGLOBIN 9.4 g/dL (12-16); IMMATURE GRANULOCYTES 1.5 % (0-5); LYMPHOCYTES 18.2 % (15-50); MCH 28.9 pg (26.0-34.0); MCHC 33.6 g/dL (31.0-37.0); MCV 86.2 fL (80.0-100.0); MEAN PLATELET VOLUME 9.6 fL (7.4-10.4); MONOCYTES 10.2 % (2-11); NEUTROPHILS 69.3 % (40-80); PLATELET COUNT 511 10x3/uL (130-400); RBC 3.25 10x6/uL (4.00-5.40); RDW 15.9 % (11.5-14.5); WBC 22.2 10x3/uL (4.8-10.8)
[2017-11-01 05:49] LABS: ANION GAP 26.2 mmol/L (8-16); CALCIUM 8.8 mg/dL (8.5-10.1); CARBON DIOXIDE 20.1 mmol/L (21.0-32.0); CREATININE - SERUM 3.6 mg/dL (0.6-1.3); POTASSIUM - SERUM 4.3 mmol/L (3.5-5.1)
[2017-11-01 07:30] LABS: VANCOMYCIN - RANDOM 9.3 ug/mL (10.0-20.0)
[2017-11-01 08:03] VITALS: BP 141/57
[2017-11-01 12:21] VITALS: BP 127/59
[2017-11-01 15:29] VITALS: BP 122/61
[2017-11-01 21:34] VITALS: BP 141/61
[2017-11-02 01:32] VITALS: BP 144/55
[2017-11-02 05:10] LABS: BASOPHILS 0.2 % (0-2); EOSINOPHILS 0.8 % (0-7); HEMATOCRIT 27.8 % (36.0-48.0); HEMOGLOBIN 9.3 g/dL (12-16); IMMATURE GRANULOCYTES 1.7 % (0-5); LYMPHOCYTES 20.8 % (15-50); MCH 28.6 pg (26.0-34.0); MCHC 33.5 g/dL (31.0-37.0); MCV 85.5 fL (80.0-100.0); MEAN PLATELET VOLUME 9.5 fL (7.4-10.4); MONOCYTES 10.2 % (2-11); NEUTROPHILS 66.3 % (40-80); PLATELET COUNT 498 10x3/uL (130-400); RBC 3.25 10x6/uL (4.00-5.40); RDW 16.2 % (11.5-14.5)
[2017-11-02 05:17] LABS: ANION GAP 32.9 mmol/L (8-16); CALCIUM 8.9 mg/dL (8.5-10.1); CARBON DIOXIDE 19.1 mmol/L (21.0-32.0); CREATININE - SERUM 4.3 mg/dL (0.6-1.3); VANCOMYCIN - RANDOM 8.7 ug/mL (10.0-20.0)
[2017-11-02 07:09] VITALS: BP 143/56
[2017-11-02 08:26] VITALS: BP 110/74
[2017-11-02 12:34] VITALS: BP 108/84
[2017-11-02 15:45] VITALS: BP 128/54
[2017-11-02 21:09] VITALS: BP 147/57
[2017-11-03 00:49] VITALS: BP 146/53
[2017-11-03 05:12] VITALS: BP 131/49
[2017-11-03 06:36] LABS: BASOPHILS 0.2 % (0-2); EOSINOPHILS 0.4 % (0-7); HEMATOCRIT 28.2 % (36.0-48.0); HEMOGLOBIN 9.3 g/dL (12-16); LYMPHOCYTES 18.7 % (15-50); MCH 28.7 pg (26.0-34.0); MEAN PLATELET VOLUME 9.4 fL (7.4-10.4); MONOCYTES 9.1 % (2-11); NEUTROPHILS 69.6 % (40-80); PLATELET COUNT 511 10x3/uL (130-400); RBC 3.24 10x6/uL (4.00-5.40); RDW 16.3 % (11.5-14.5); WBC 19.7 10x3/uL (4.8-10.8)
[2017-11-03 07:03] LABS: ANION GAP 33.6 mmol/L (8-16); CALCIUM 8.6 mg/dL (8.5-10.1); CARBON DIOXIDE 17.7 mmol/L (21.0-32.0); CREATININE - SERUM 5.1 mg/dL (0.6-1.3); POTASSIUM - SERUM 5.3 mmol/L (3.5-5.1); VANCOMYCIN - RANDOM 8.5 ug/mL (10.0-20.0)
[2017-11-03 08:14] VITALS: BP 136/46
[2017-11-03 17:06] VITALS: BP 156/65
[2017-11-03 21:09] VITALS: BP 145/63
[2017-11-04 05:54] VITALS: BP 165/57
[2017-11-04 06:49] LABS: BASOPHILS 0.2 % (0-2); EOSINOPHILS 0.6 % (0-7); HEMOGLOBIN 9.5 g/dL (12-16); IMMATURE GRANULOCYTES 1.9 % (0-5); LYMPHOCYTES 13.9 % (15-50); MCH 29.1 pg (26.0-34.0); MCHC 32.8 g/dL (31.0-37.0); MCV 88.7 fL (80.0-100.0); MEAN PLATELET VOLUME 9.5 fL (7.4-10.4); MONOCYTES 9.9 % (2-11); NEUTROPHILS 73.5 % (40-80); PLATELET COUNT 551 10x3/uL (130-400); RBC 3.27 10x6/uL (4.00-5.40); RDW 16.5 % (11.5-14.5); WBC 19.6 10x3/uL (4.8-10.8)
[2017-11-04 07:07] LABS: PHOSPHOROUS 3.2 mg/dL (2.5-4.9)
[2017-11-04 07:10] LABS: ANION GAP 22.4 mmol/L (8-16); CARBON DIOXIDE 24.5 mmol/L (21.0-32.0); CREATININE - SERUM 3.2 mg/dL (0.6-1.3); POTASSIUM - SERUM 3.9 mmol/L (3.5-5.1)
[2017-11-04 08:52] VITALS: BP 153/56
[2017-11-04 12:47] VITALS: BP 156/77
[2017-11-04 18:08] VITALS: BP 140/62
[2017-11-04 20:00] VITALS: BP 133/60
[2017-11-05] VITALS: BP 113/59
[2017-11-05 04:00] VITALS: BP 148/48
[2017-11-05 05:21] LABS: BASOPHILS 0.2 % (0-2); EOSINOPHILS 0.8 % (0-7); HEMATOCRIT 27.8 % (36.0-48.0); HEMOGLOBIN 9.1 g/dL (12-16); IMMATURE GRANULOCYTES 2.1 % (0-5); LYMPHOCYTES 17.4 % (15-50); MCHC 32.7 g/dL (31.0-37.0); MCV 88.5 fL (80.0-100.0); MEAN PLATELET VOLUME 9.6 fL (7.4-10.4); MONOCYTES 9.7 % (2-11); NEUTROPHILS 69.8 % (40-80); PLATELET COUNT 578 10x3/uL (130-400); RBC 3.14 10x6/uL (4.00-5.40); RDW 16.3 % (11.5-14.5); WBC 19.4 10x3/uL (4.8-10.8)
[2017-11-05 05:46] LABS: ANION GAP 22.9 mmol/L (8-16); CALCIUM 8.8 mg/dL (8.5-10.1); CARBON DIOXIDE 24.6 mmol/L (21.0-32.0)
[2017-11-05 05:48] LABS: POTASSIUM - SERUM 4.5 mmol/L (3.5-5.1)
[2017-11-05 08:39] VITALS: BP 150/73
[2017-11-05 15:54] VITALS: BP 137/55
[2017-11-05 20:00] VITALS: BP 123/54
[2017-11-06] VITALS: BP 132/58
[2017-11-06 04:00] VITALS: BP 128/58
[2017-11-06 05:39] LABS: BASOPHILS 0.3 % (0-2); EOSINOPHILS 0.5 % (0-7); HEMATOCRIT 27.1 % (36.0-48.0); HEMOGLOBIN 8.8 g/dL (12-16); IMMATURE GRANULOCYTES 2.2 % (0-5); LYMPHOCYTES 18.6 % (15-50); MCH 28.3 pg (26.0-34.0); MCHC 32.5 g/dL (31.0-37.0); MCV 87.1 fL (80.0-100.0); MEAN PLATELET VOLUME 9.6 fL (7.4-10.4); MONOCYTES 10.2 % (2-11); NEUTROPHILS 68.2 % (40-80); PLATELET COUNT 552 10x3/uL (130-400); RBC 3.11 10x6/uL (4.00-5.40); WBC 21.5 10x3/uL (4.8-10.8)
[2017-11-06 05:49] LABS: ANION GAP 28.6 mmol/L (8-16); CALCIUM 8.6 mg/dL (8.5-10.1); CARBON DIOXIDE 21.4 mmol/L (21.0-32.0)
[2017-11-06 08:16] VITALS: BP 142/50
[2017-11-06 11:59] VITALS: BP 139/50
[2017-11-06 16:04] VITALS: BP 128/66
[2017-11-06 20:44] VITALS: BP 118/52
[2017-11-07 01:11] VITALS: BP 128/61
[2017-11-07 05:46] VITALS: BP 136/60
[2017-11-07 05:51] LABS: ANION GAP 30.4 mmol/L (8-16); CALCIUM 9.4 mg/dL (8.5-10.1); CARBON DIOXIDE 18.3 mmol/L (21.0-32.0); CREATININE - SERUM 4.9 mg/dL (0.6-1.3); POTASSIUM - SERUM 5.7 mmol/L (3.5-5.1)
[2017-11-07 05:52] LABS: BASOPHILS 0.3 % (0-2); EOSINOPHILS 0.8 % (0-7); HEMATOCRIT 27.9 % (36.0-48.0); HEMOGLOBIN 9.3 g/dL (12-16); IMMATURE GRANULOCYTES 2.1 % (0-5); LYMPHOCYTES 18.5 % (15-50); MCH 28.9 pg (26.0-34.0); MCHC 33.3 g/dL (31.0-37.0); MCV 86.6 fL (80.0-100.0); MEAN PLATELET VOLUME 9.8 fL (7.4-10.4); MONOCYTES 9.9 % (2-11); NEUTROPHILS 68.4 % (40-80); PLATELET COUNT 605 10x3/uL (130-400); RBC 3.22 10x6/uL (4.00-5.40); RDW 16.1 % (11.5-14.5); WBC 23.6 10x3/uL (4.8-10.8)
[2017-11-07 08:26] VITALS: BP 140/68
[2017-11-07 11:51] VITALS: BP 147/65
[2017-11-07 20:46] VITALS: BP 125/50
[2017-11-08 01:06] VITALS: BP 151/80
[2017-11-08 05:32] LABS: BASOPHILS 0.2 % (0-2); EOSINOPHILS 0 % (0-7); HEMATOCRIT 28.2 % (36.0-48.0); HEMOGLOBIN 9.4 g/dL (12-16); IMMATURE GRANULOCYTES 2.4 % (0-5); LYMPHOCYTES 11.8 % (15-50); MCH 28.6 pg (26.0-34.0); MCHC 33.3 g/dL (31.0-37.0); MCV 85.7 fL (80.0-100.0); MEAN PLATELET VOLUME 9.3 fL (7.4-10.4); MONOCYTES 6.9 % (2-11); NEUTROPHILS 78.7 % (40-80); PLATELET COUNT 602 10x3/uL (130-400); RBC 3.29 10x6/uL (4.00-5.40); WBC 26.2 10x3/uL (4.8-10.8)
[2017-11-08 05:42] LABS: ANION GAP 35.1 mmol/L (8-16); CALCIUM 9.5 mg/dL (8.5-10.1); CARBON DIOXIDE 19.3 mmol/L (21.0-32.0)
[2017-11-08 05:50] LABS: POTASSIUM - SERUM 4.4 mmol/L (3.5-5.1)
[2017-11-08 06:10] VITALS: BP 110/60
[2017-11-08 09:12] VITALS: BP 124/70
[2017-11-08 12:37] VITALS: BP 128/57
[2017-11-08 17:32] VITALS: BP 143/74
[2017-11-08 20:00] VITALS: BP 139/58
[2017-11-09] VITALS: BP 140/62
[2017-11-09 04:00] VITALS: BP 142/56
[2017-11-09 06:07] LABS: ANION GAP 37.3 mmol/L (8-16); CALCIUM 9.2 mg/dL (8.5-10.1); CARBON DIOXIDE 18.5 mmol/L (21.0-32.0); CREATININE - SERUM 4.7 mg/dL (0.6-1.3); POTASSIUM - SERUM 4.8 mmol/L (3.5-5.1); VANCOMYCIN - RANDOM 18.9 ug/mL (10.0-20.0)
[2017-11-09 06:14] LABS: BASOPHILS 0.2 % (0-2); EOSINOPHILS 0.5 % (0-7); HEMATOCRIT 26.6 % (36.0-48.0); HEMOGLOBIN 8.8 g/dL (12-16); IMMATURE GRANULOCYTES 2.3 % (0-5); LYMPHOCYTES 15.1 % (15-50); MCH 28.7 pg (26.0-34.0); MCHC 33.1 g/dL (31.0-37.0); MCV 86.6 fL (80.0-100.0); MEAN PLATELET VOLUME 9.3 fL (7.4-10.4); MONOCYTES 8.3 % (2-11); NEUTROPHILS 73.6 % (40-80); PLATELET COUNT 644 10x3/uL (130-400); RBC 3.07 10x6/uL (4.00-5.40); RDW 16.4 % (11.5-14.5); WBC 25.9 10x3/uL (4.8-10.8)
[2017-11-09 08:11] VITALS: BP 135/52
[2017-11-09 12:24] VITALS: BP 138/56
[2017-11-09 15:31] VITALS: BP 145/53
[2017-11-09 20:00] VITALS: BP 125/59
[2017-11-10 06:12] LABS: BASOPHILS 0.3 % (0-2); EOSINOPHILS 0.5 % (0-7); HEMATOCRIT 24.9 % (36.0-48.0); HEMOGLOBIN 8.1 g/dL (12-16); IMMATURE GRANULOCYTES 3.2 % (0-5); LYMPHOCYTES 16.5 % (15-50); MCH 28.6 pg (26.0-34.0); MCHC 32.5 g/dL (31.0-37.0); MEAN PLATELET VOLUME 9.2 fL (7.4-10.4); MONOCYTES 8.3 % (2-11); NEUTROPHILS 71.2 % (40-80); PLATELET COUNT 639 10x3/uL (130-400); RBC 2.83 10x6/uL (4.00-5.40); RDW 16.7 % (11.5-14.5); WBC 23.9 10x3/uL (4.8-10.8)
[2017-11-10 06:33] LABS: CALCIUM 8.8 mg/dL (8.5-10.1); CARBON DIOXIDE 15.4 mmol/L (21.0-32.0); CREATININE - SERUM 5.2 mg/dL (0.6-1.3); PHOSPHOROUS 5.5 mg/dL (2.5-4.9); VANCOMYCIN - RANDOM 27.5 ug/mL (10.0-20.0)
[2017-11-10 06:37] LABS: POTASSIUM - SERUM 4.4 mmol/L (3.5-5.1)
[2017-11-10 15:47] VITALS: BP 130/57
[2017-11-10 20:00] VITALS: BP 134/60
[2017-11-11] VITALS (7 sets, daily range): BP systolic 127–161; BP diastolic 52–70
[2017-11-11 06:32] LABS: BASOPHILS 0.2 % (0-2); EOSINOPHILS 0.5 % (0-7); HEMATOCRIT 25.4 % (36.0-48.0); HEMOGLOBIN 8.2 g/dL (12-16); LYMPHOCYTES 14.5 % (15-50); MCH 28.7 pg (26.0-34.0); MCHC 32.3 g/dL (31.0-37.0); MCV 88.8 fL (80.0-100.0); MONOCYTES 11.4 % (2-11); NEUTROPHILS 70.4 % (40-80); PLATELET COUNT 608 10x3/uL (130-400); RBC 2.86 10x6/uL (4.00-5.40); RDW 16.9 % (11.5-14.5); WBC 21.3 10x3/uL (4.8-10.8)
[2017-11-11 06:43] LABS: ANION GAP 27.7 mmol/L (8-16); CALCIUM 8.8 mg/dL (8.5-10.1); POTASSIUM - SERUM 3.9 mmol/L (3.5-5.1)
[2017-11-11 06:47] LABS: CARBON DIOXIDE 20.2 mmol/L (21.0-32.0); CREATININE - SERUM 3.7 mg/dL (0.6-1.3); PHOSPHOROUS 3.7 mg/dL (2.5-4.9)
[2017-11-12 00:37] VITALS: BP 154/71
[2017-11-12 06:19] LABS: ANION GAP 27.7 mmol/L (8-16); CALCIUM 8.8 mg/dL (8.5-10.1); CREATININE - SERUM 4.5 mg/dL (0.6-1.3); PHOSPHOROUS 4.4 mg/dL (2.5-4.9); POTASSIUM - SERUM 4.7 mmol/L (3.5-5.1); VANCOMYCIN - RANDOM 21.4 ug/mL (10.0-20.0)
[2017-11-12 06:21] VITALS: BP 141/68
[2017-11-12 06:21] LABS: BASOPHILS 0.2 % (0-2); EOSINOPHILS 0.4 % (0-7); HEMATOCRIT 28.3 % (36.0-48.0); HEMOGLOBIN 9.3 g/dL (12-16); IMMATURE GRANULOCYTES 2.2 % (0-5); LYMPHOCYTES 9.9 % (15-50); MCH 28.5 pg (26.0-34.0); MCHC 32.9 g/dL (31.0-37.0); MCV 86.8 fL (80.0-100.0); MEAN PLATELET VOLUME 9.3 fL (7.4-10.4); NEUTROPHILS 77.3 % (40-80); PLATELET COUNT 569 10x3/uL (130-400); RBC 3.26 10x6/uL (4.00-5.40); RDW 16.6 % (11.5-14.5); WBC 21.1 10x3/uL (4.8-10.8)
[2017-11-12 06:29] LABS: % SATURATION 22 % (15-55); IRON 22 ug/dl (35-150); TOTAL IRON BIND CAPACITY 99 ug/dl (260-445); UNSAT IRON BIND CAPACITY 77 ug/dl (150-375)
[2017-11-12 08:50] VITALS: BP 160/71
[2017-11-12 15:28] VITALS: BP 161/62
[2017-11-12 20:38] VITALS: BP 128/65
[2017-11-13 00:05] VITALS: BP 150/69
[2017-11-13 04:39] VITALS: BP 148/68
[2017-11-13 05:26] LABS: BASOPHILS 0.2 % (0-2); EOSINOPHILS 0.1 % (0-7); HEMATOCRIT 27.4 % (36.0-48.0); HEMOGLOBIN 9.3 g/dL (12-16); IMMATURE GRANULOCYTES 2.9 % (0-5); LYMPHOCYTES 6.2 % (15-50); MCH 29.3 pg (26.0-34.0); MCHC 33.9 g/dL (31.0-37.0); MCV 86.4 fL (80.0-100.0); MEAN PLATELET VOLUME 9.3 fL (7.4-10.4); MONOCYTES 7.4 % (2-11); NEUTROPHILS 83.2 % (40-80); RBC 3.17 10x6/uL (4.00-5.40); RDW 16.3 % (11.5-14.5); WBC 17.8 10x3/uL (4.8-10.8)
[2017-11-13 05:43] LABS: ANION GAP 27.9 mmol/L (8-16); CALCIUM 9.5 mg/dL (8.5-10.1); CREATININE - SERUM 3.8 mg/dL (0.6-1.3); PHOSPHOROUS 4.2 mg/dL (2.5-4.9); POTASSIUM - SERUM 3.9 mmol/L (3.5-5.1); VANCOMYCIN - RANDOM 18.2 ug/mL (10.0-20.0)
[2017-11-13 05:45] LABS: PLATELET COUNT 242 10x3/uL (130-400)
[2017-11-13 08:02] VITALS: BP 185/54
[2017-11-13 15:19] VITALS: BP 166/69
[2017-11-13 20:33] VITALS: BP 151/67
[2017-11-14 01:35] VITALS: BP 149/67
[2017-11-14 05:02] LABS: BASOPHILS 0.2 % (0-2); EOSINOPHILS 0.6 % (0-7); HEMATOCRIT 26.9 % (36.0-48.0); HEMOGLOBIN 8.7 g/dL (12-16); IMMATURE GRANULOCYTES 1.8 % (0-5); LYMPHOCYTES 11.4 % (15-50); MCH 28.5 pg (26.0-34.0); MCHC 32.3 g/dL (31.0-37.0); MCV 88.2 fL (80.0-100.0); MEAN PLATELET VOLUME 9.2 fL (7.4-10.4); MONOCYTES 9.3 % (2-11); NEUTROPHILS 76.7 % (40-80); PLATELET COUNT 710 10x3/uL (130-400); RBC 3.05 10x6/uL (4.00-5.40); RDW 16.8 % (11.5-14.5); WBC 24.5 10x3/uL (4.8-10.8)
[2017-11-14 05:50] VITALS: BP 148/70
[2017-11-14 06:26] LABS: ANION GAP 25.8 mmol/L (8-16); CALCIUM 9.4 mg/dL (8.5-10.1); CREATININE - SERUM 4.6 mg/dL (0.6-1.3); PHOSPHOROUS 4.3 mg/dL (2.5-4.9); VANCOMYCIN - RANDOM 17.9 ug/mL (10.0-20.0)
[2017-11-14 06:31] LABS: POTASSIUM - SERUM 2.8 mmol/L (3.5-5.1)
[2017-11-14 08:25] VITALS: BP 161/73
[2017-11-14 15:53] VITALS: BP 165/66
[2017-11-14 20:34] VITALS: BP 162/67
[2017-11-15 01:31] VITALS: BP 167/71
[2017-11-15 05:43] VITALS: BP 171/69
[2017-11-15 08:48] LABS: BASOPHILS 0.4 % (0-2); EOSINOPHILS 0.9 % (0-7); HEMATOCRIT 30.2 % (36.0-48.0); HEMOGLOBIN 9.7 g/dL (12-16); IMMATURE GRANULOCYTES 3.5 % (0-5); LYMPHOCYTES 15.4 % (15-50); MCH 28.7 pg (26.0-34.0); MCHC 32.1 g/dL (31.0-37.0); MCV 89.3 fL (80.0-100.0); MEAN PLATELET VOLUME 9.3 fL (7.4-10.4); MONOCYTES 9.8 % (2-11); PLATELET COUNT 692 10x3/uL (130-400); RBC 3.38 10x6/uL (4.00-5.40); WBC 23.1 10x3/uL (4.8-10.8)
[2017-11-15 08:59] LABS: ALBUMIN 1.7 g/dL (3.4-5.0); ANION GAP 20.8 mmol/L (8-16); BILIRUBIN - TOTAL 0.5 mg/dL (0.2-1.3); CALCIUM 9.7 mg/dL (8.5-10.1); CARBON DIOXIDE 25.3 mmol/L (21.0-32.0); CREATININE - SERUM 3.8 mg/dL (0.6-1.3); MAGNESIUM - SERUM 2.3 mg/dL (1.8-2.4); PHOSPHOROUS 3.3 mg/dL (2.5-4.9); POTASSIUM - SERUM 3.1 mmol/L (3.5-5.1); PROTEIN - SERUM 8.1 g/dL (6.4-8.2)
[2017-11-15 10:02] VITALS: BP 164/53
[2017-11-15 13:18] VITALS: BP 172/44
[2017-11-15 16:17] VITALS: BP 167/51
[2017-11-15 20:00] VITALS: BP 173/76
[2017-11-16 04:00] VITALS: BP 160/79
[2017-11-16 06:08] LABS: HEMATOCRIT 28.5 % (36.0-48.0); HEMOGLOBIN 9.3 g/dL (12-16); MCH 28.4 pg (26.0-34.0); MCHC 32.6 g/dL (31.0-37.0); MCV 87.2 fL (80.0-100.0); MEAN PLATELET VOLUME 9.1 fL (7.4-10.4); PLATELET COUNT 639 10x3/uL (130-400); RBC 3.27 10x6/uL (4.00-5.40); RDW 16.5 % (11.5-14.5); WBC 23.1 10x3/uL (4.8-10.8)
[2017-11-16 06:34] LABS: ANION GAP 20.5 mmol/L (8-16); BILIRUBIN - TOTAL 0.53 mg/dL (0.2-1.3); CALCIUM 9.7 mg/dL (8.5-10.1); CARBON DIOXIDE 22.6 mmol/L (21.0-32.0); CREATININE - SERUM 4.5 mg/dL (0.6-1.3); POTASSIUM - SERUM 3.1 mmol/L (3.5-5.1); PROTEIN - SERUM 7.5 g/dL (6.4-8.2); VANCOMYCIN - RANDOM 27.9 ug/mL (10.0-20.0)
[2017-11-16 06:39] LABS: ALBUMIN 1.6 g/dL (3.4-5.0)
[2017-11-16 07:09] LABS: LYMPHOCYTES 15 % (15-50); NEUTROPHILS 83 % (40-80); TARGET CELLS 1+
[2017-11-16 07:11] LABS: PLATELET ESTIMATE INCREASED
[2017-11-16 08:53] VITALS: BP 172/82
[2017-11-16 11:45] VITALS: BP 156/30
[2017-11-16 20:00] VITALS: BP 176/76
[2017-11-17] VITALS: BP 162/75
[2017-11-17 04:00] VITALS: BP 176/69
[2017-11-17 05:25] LABS: BASOPHILS 0.5 % (0-2); HEMATOCRIT 27.2 % (36.0-48.0); IMMATURE GRANULOCYTES 5.7 % (0-5); LYMPHOCYTES 12.8 % (15-50); MCH 28.5 pg (26.0-34.0); MCHC 33.1 g/dL (31.0-37.0); MCV 86.1 fL (80.0-100.0); MEAN PLATELET VOLUME 9.3 fL (7.4-10.4); MONOCYTES 10.2 % (2-11); NEUTROPHILS 69.8 % (40-80); PLATELET COUNT 672 10x3/uL (130-400); RBC 3.16 10x6/uL (4.00-5.40); RDW 16.6 % (11.5-14.5); WBC 21.4 10x3/uL (4.8-10.8)
[2017-11-17 06:01] LABS: ALBUMIN 1.5 g/dL (3.4-5.0); BILIRUBIN - TOTAL 0.6 mg/dL (0.2-1.3); CALCIUM 9.2 mg/dL (8.5-10.1); CARBON DIOXIDE 21.2 mmol/L (21.0-32.0); PROTEIN - SERUM 6.8 g/dL (6.4-8.2); VANCOMYCIN - RANDOM 23.6 ug/mL (10.0-20.0)
[2017-11-17 06:32] LABS: ANION GAP 22.8 mmol/L (8-16)
[2017-11-17 07:59] VITALS: BP 176/80
[2017-11-17 11:48] VITALS: BP 163/79
[2017-11-17 15:46] VITALS: BP 181/78
[2017-11-17 20:28] VITALS: BP 114/67
[2017-11-18 01:30] VITALS: BP 146/79
[2017-11-18 04:00] VITALS: BP 158/69
[2017-11-18 06:02] LABS: BASOPHILS 0.4 % (0-2); EOSINOPHILS 0.8 % (0-7); HEMATOCRIT 28.9 % (36.0-48.0); HEMOGLOBIN 9.4 g/dL (12-16); IMMATURE GRANULOCYTES 4.4 % (0-5); LYMPHOCYTES 14.3 % (15-50); MCH 28.2 pg (26.0-34.0); MCHC 32.5 g/dL (31.0-37.0); MCV 86.8 fL (80.0-100.0); MEAN PLATELET VOLUME 9.2 fL (7.4-10.4); NEUTROPHILS 68.1 % (40-80); PLATELET COUNT 716 10x3/uL (130-400); RBC 3.33 10x6/uL (4.00-5.40); RDW 16.8 % (11.5-14.5); WBC 22.7 10x3/uL (4.8-10.8)
[2017-11-18 06:21] LABS: ALBUMIN 1.6 g/dL (3.4-5.0); ANION GAP 18.9 mmol/L (8-16); BILIRUBIN - TOTAL 0.52 mg/dL (0.2-1.3); CALCIUM 9.3 mg/dL (8.5-10.1); CARBON DIOXIDE 24.8 mmol/L (21.0-32.0); CREATININE - SERUM 3.7 mg/dL (0.6-1.3)
[2017-11-18 06:22] LABS: POTASSIUM - SERUM 2.7 mmol/L (3.5-5.1)
[2017-11-18 07:44] VITALS: BP 156/75
[2017-11-18 11:25] VITALS: BP 144/78
[2017-11-18 15:24] VITALS: BP 151/70
[2017-11-18 20:00] VITALS: BP 173/78
[2017-11-19 00:54] VITALS: BP 162/76
[2017-11-19 04:00] VITALS: BP 146/71
[2017-11-19 04:00] LABS: BASOPHILS 0.4 % (0-2); EOSINOPHILS 1.1 % (0-7); HEMATOCRIT 28.9 % (36.0-48.0); HEMOGLOBIN 9.3 g/dL (12-16); IMMATURE GRANULOCYTES 4.6 % (0-5); LYMPHOCYTES 13.9 % (15-50); MCH 28.2 pg (26.0-34.0); MCHC 32.2 g/dL (31.0-37.0); MCV 87.6 fL (80.0-100.0); MEAN PLATELET VOLUME 9.1 fL (7.4-10.4); MONOCYTES 13.4 % (2-11); NEUTROPHILS 66.6 % (40-80); PLATELET COUNT 674 10x3/uL (130-400); WBC 21.5 10x3/uL (4.8-10.8)
[2017-11-19 04:10] LABS: ALBUMIN 1.5 g/dL (3.4-5.0); ANION GAP 17.3 mmol/L (8-16); BILIRUBIN - TOTAL 0.5 mg/dL (0.2-1.3); CALCIUM 8.8 mg/dL (8.5-10.1); CARBON DIOXIDE 24.7 mmol/L (21.0-32.0); CREATININE - SERUM 4.5 mg/dL (0.6-1.3); PROTEIN - SERUM 6.6 g/dL (6.4-8.2)
[2017-11-19 08:59] VITALS: BP 174/83
[2017-11-19 12:13] VITALS: BP 180/90
[2017-11-19 15:43] VITALS: BP 152/68
[2017-11-19 21:08] VITALS: BP 156/63
[2017-11-20 01:39] VITALS: BP 155/65
[2017-11-20 05:39] LABS: BASOPHILS 0.2 % (0-2); EOSINOPHILS 0.8 % (0-7); HEMATOCRIT 28.2 % (36.0-48.0); IMMATURE GRANULOCYTES 4.2 % (0-5); LYMPHOCYTES 12.6 % (15-50); MCHC 31.9 g/dL (31.0-37.0); MCV 87.9 fL (80.0-100.0); MEAN PLATELET VOLUME 8.8 fL (7.4-10.4); MONOCYTES 13.1 % (2-11); NEUTROPHILS 69.1 % (40-80); PLATELET COUNT 647 10x3/uL (130-400); RBC 3.21 10x6/uL (4.00-5.40); WBC 21.4 10x3/uL (4.8-10.8)
[2017-11-20 05:49] LABS: ALBUMIN 1.6 g/dL (3.4-5.0); ANION GAP 17.7 mmol/L (8-16); BILIRUBIN - TOTAL 0.5 mg/dL (0.2-1.3); CALCIUM 8.6 mg/dL (8.5-10.1); CARBON DIOXIDE 24.9 mmol/L (21.0-32.0); CREATININE - SERUM 3.8 mg/dL (0.6-1.3); PHOSPHOROUS 2.5 mg/dL (2.5-4.9); PROTEIN - SERUM 6.7 g/dL (6.4-8.2)
[2017-11-20 05:52] LABS: POTASSIUM - SERUM 2.6 mmol/L (3.5-5.1)
[2017-11-20 06:14] VITALS: BP 130/70
[2017-11-20 08:51] VITALS: BP 159/68
[2017-11-20 12:04] VITALS: BP 169/70
[2017-11-20 12:17] LABS: HEPATITIS C ANTIBODY 0.2 (0.0-0.9)
[2017-11-20 16:22] VITALS: BP 147/68
[2017-11-20 22:02] VITALS: BP 151/78
[2017-11-21 01:48] VITALS: BP 185/61
[2017-11-21 05:20] VITALS: BP 169/54
[2017-11-21 06:14] LABS: BASOPHILS 0.2 % (0-2); EOSINOPHILS 0.9 % (0-7); HEMATOCRIT 29.4 % (36.0-48.0); HEMOGLOBIN 9.6 g/dL (12-16); MCH 28.5 pg (26.0-34.0); MCHC 32.7 g/dL (31.0-37.0); MCV 87.2 fL (80.0-100.0); MEAN PLATELET VOLUME 8.9 fL (7.4-10.4); MONOCYTES 10.6 % (2-11); NEUTROPHILS 70.3 % (40-80); PLATELET COUNT 653 10x3/uL (130-400); RBC 3.37 10x6/uL (4.00-5.40); RDW 17.6 % (11.5-14.5); WBC 22.3 10x3/uL (4.8-10.8)
[2017-11-21 06:27] LABS: ALBUMIN 1.6 g/dL (3.4-5.0); ANION GAP 17.5 mmol/L (8-16); BILIRUBIN - TOTAL 0.57 mg/dL (0.2-1.3); CARBON DIOXIDE 23.6 mmol/L (21.0-32.0); CREATININE - SERUM 4.5 mg/dL (0.6-1.3); POTASSIUM - SERUM 3.1 mmol/L (3.5-5.1); PROTEIN - SERUM 7.1 g/dL (6.4-8.2)
[2017-11-21 08:13] VITALS: BP 166/75
[2017-11-21 12:46] VITALS: BP 157/67
[2017-11-21 16:12] VITALS: BP 128/59
[2017-11-21 21:25] VITALS: BP 160/76
[2017-11-22 01:43] VITALS: BP 162/65
[2017-11-22 05:11] LABS: BASOPHILS 0.3 % (0-2); EOSINOPHILS 0.8 % (0-7); HEMATOCRIT 28.1 % (36.0-48.0); HEMOGLOBIN 8.9 g/dL (12-16); IMMATURE GRANULOCYTES 2.6 % (0-5); LYMPHOCYTES 13.2 % (15-50); MCHC 31.7 g/dL (31.0-37.0); MCV 88.4 fL (80.0-100.0); MEAN PLATELET VOLUME 8.9 fL (7.4-10.4); MONOCYTES 9.7 % (2-11); NEUTROPHILS 73.4 % (40-80); PLATELET COUNT 646 10x3/uL (130-400); RBC 3.18 10x6/uL (4.00-5.40); RDW 17.5 % (11.5-14.5); WBC 22.5 10x3/uL (4.8-10.8)
[2017-11-22 05:38] VITALS: BP 143/65
[2017-11-22 05:38] LABS: ALBUMIN 1.6 g/dL (3.4-5.0); ANION GAP 13.7 mmol/L (8-16); BILIRUBIN - TOTAL 0.4 mg/dL (0.2-1.3); CALCIUM 8.3 mg/dL (8.5-10.1); CARBON DIOXIDE 26.2 mmol/L (21.0-32.0); PROTEIN - SERUM 6.5 g/dL (6.4-8.2)
[2017-11-22 05:39] LABS: CREATININE - SERUM 2.9 mg/dL (0.6-1.3)
[2017-11-22 05:40] LABS: POTASSIUM - SERUM 2.9 mmol/L (3.5-5.1)
[2017-11-22 08:45] VITALS: BP 172/99
[2017-11-22 12:41] VITALS: BP 164/78
[2017-11-22 16:00] VITALS: BP 166/73
[2017-11-22 20:30] VITALS: BP 153/83
[2017-11-23 00:30] VITALS: BP 152/72
[2017-11-23 04:30] VITALS: BP 139/73
[2017-11-23 07:59] VITALS: BP 186/85
[2017-11-23 11:17] VITALS: BP 181/81
[2017-11-23 15:32] VITALS: BP 152/68
[2017-11-23 20:00] VITALS: BP 141/74
[2017-11-24 04:00] VITALS: BP 168/83
[2017-11-24 08:08] VITALS: BP 179/70
[2017-11-24 15:18] VITALS: BP 160/75
[2017-11-24 21:05] VITALS: BP 179/80
[2017-11-25 04:00] VITALS: BP 176/84
[2017-11-25 07:51] VITALS: BP 162/76
[2017-11-25 11:26] VITALS: BP 183/86
[2017-11-25 15:21] VITALS: BP 133/59
[2017-11-25 20:10] VITALS: BP 178/74
[2017-11-25 23:38] VITALS: BP 121/64
[2017-11-26 04:56] VITALS: BP 141/68
[2017-11-26 05:33] LABS: BASOPHILS 0.2 % (0-2); EOSINOPHILS 0.8 % (0-7); HEMATOCRIT 27.6 % (36.0-48.0); HEMOGLOBIN 8.9 g/dL (12-16); IMMATURE GRANULOCYTES 1.9 % (0-5); LYMPHOCYTES 16.3 % (15-50); MCH 28.3 pg (26.0-34.0); MCHC 32.2 g/dL (31.0-37.0); MCV 87.9 fL (80.0-100.0); MEAN PLATELET VOLUME 8.9 fL (7.4-10.4); MONOCYTES 9.6 % (2-11); NEUTROPHILS 71.2 % (40-80); PLATELET COUNT 658 10x3/uL (130-400); RBC 3.14 10x6/uL (4.00-5.40); RDW 18.2 % (11.5-14.5); WBC 20.8 10x3/uL (4.8-10.8)
[2017-11-26 05:54] LABS: ALBUMIN 1.6 g/dL (3.4-5.0); ANION GAP 17.1 mmol/L (8-16); BILIRUBIN - TOTAL 0.5 mg/dL (0.2-1.3); CALCIUM 7.9 mg/dL (8.5-10.1); CARBON DIOXIDE 25.2 mmol/L (21.0-32.0); CREATININE - SERUM 4.3 mg/dL (0.6-1.3); MAGNESIUM - SERUM 2.3 mg/dL (1.8-2.4); PHOSPHOROUS 2.5 mg/dL (2.5-4.9); POTASSIUM - SERUM 3.3 mmol/L (3.5-5.1)
[2017-11-26 08:40] VITALS: BP 200/79
[2017-11-26 12:11] VITALS: BP 125/70
[2017-11-26 17:27] VITALS: BP 139/58
[2017-11-26 20:38] VITALS: BP 193/83
[2017-11-27 00:36] VITALS: BP 116/64
[2017-11-27 05:31] VITALS: BP 149/75
[2017-11-27 07:00] VITALS: BP 166/78
[2017-11-27 12:31] VITALS: BP 158/76
[2017-11-27 20:07] VITALS: BP 143/79
[2017-11-28 00:34] VITALS: BP 156/74
[2017-11-28 05:19] VITALS: BP 178/77
[2017-11-28 08:18] VITALS: BP 141/73
[2017-11-28 12:01] VITALS: BP 175/90
[2017-11-28 15:47] VITALS: BP 162/88
[2017-11-28 20:30] VITALS: BP 179/65
[2017-11-29 00:30] VITALS: BP 151/70
[2017-11-29 04:30] VITALS: BP 142/78
[2017-11-29 07:49] VITALS: BP 179/80
[2017-11-29 11:50] VITALS: BP 184/75
[2017-11-29 15:56] VITALS: BP 161/62
[2017-11-29 20:30] VITALS: BP 127/65
[2017-11-30 00:30] VITALS: BP 145/70
[2017-11-30 04:30] VITALS: BP 150/86
[2017-11-30 06:39] LABS: BASOPHILS 0.2 % (0-2); EOSINOPHILS 0.8 % (0-7); HEMATOCRIT 26.5 % (36.0-48.0); HEMOGLOBIN 8.6 g/dL (12-16); LYMPHOCYTES 15.1 % (15-50); MCH 28.4 pg (26.0-34.0); MCHC 32.5 g/dL (31.0-37.0); MCV 87.5 fL (80.0-100.0); NEUTROPHILS 74.9 % (40-80); RBC 3.03 10x6/uL (4.00-5.40); RDW 18.4 % (11.5-14.5); WBC 19.7 10x3/uL (4.8-10.8)
[2017-11-30 06:44] LABS: PLATELET COUNT 499 10x3/uL (130-400)
[2017-11-30 06:53] LABS: ANION GAP 22.2 mmol/L (8-16); CALCIUM 8.9 mg/dL (8.5-10.1); CREATININE - SERUM 4.1 mg/dL (0.6-1.3); POTASSIUM - SERUM 3.2 mmol/L (3.5-5.1)
[2017-11-30 09:03] VITALS: BP 162/90
[2017-11-30 12:39] VITALS: BP 190/43
[2017-11-30 16:14] VITALS: BP 186/57
[2017-11-30 20:00] VITALS: BP 162/67
[2017-12-01] VITALS: BP 187/64
[2017-12-01 06:17] VITALS: BP 162/66
[2017-12-01 07:00] VITALS: BP 177/78
[2017-12-01 21:53] VITALS: BP 143/58
[2017-12-02 00:49] VITALS: BP 152/69
[2017-12-02 05:04] LABS: BASOPHILS 0.2 % (0-2); EOSINOPHILS 1.3 % (0-7); HEMATOCRIT 25.2 % (36.0-48.0); IMMATURE GRANULOCYTES 1.4 % (0-5); LYMPHOCYTES 16.5 % (15-50); MCH 27.9 pg (26.0-34.0); MCHC 31.7 g/dL (31.0-37.0); MCV 87.8 fL (80.0-100.0); MEAN PLATELET VOLUME 8.9 fL (7.4-10.4); MONOCYTES 6.8 % (2-11); NEUTROPHILS 73.8 % (40-80); PLATELET COUNT 429 10x3/uL (130-400); RBC 2.87 10x6/uL (4.00-5.40); RDW 18.5 % (11.5-14.5); WBC 16.9 10x3/uL (4.8-10.8)
[2017-12-02 05:17] VITALS: BP 176/73
[2017-12-02 05:49] LABS: % SATURATION 23 % (15-55); IRON 23 ug/dl (35-150); TOTAL IRON BIND CAPACITY 97 ug/dl (260-445); UNSAT IRON BIND CAPACITY 74 ug/dl (150-375)
[2017-12-02 06:17] LABS: ANION GAP 19.6 mmol/L (8-16); CALCIUM 8.3 mg/dL (8.5-10.1); CARBON DIOXIDE 23.9 mmol/L (21.0-32.0); CREATININE - SERUM 4.4 mg/dL (0.6-1.3); POTASSIUM - SERUM 3.5 mmol/L (3.5-5.1)
[2017-12-02 09:11] VITALS: BP 155/31
[2017-12-02 12:35] VITALS: BP 202/89
[2017-12-02 20:00] VITALS: BP 172/75
[2017-12-03] VITALS: BP 154/64
[2017-12-03 04:00] VITALS: BP 140/48
[2017-12-03 08:06] VITALS: BP 183/107
[2017-12-03 11:00] LABS: ANION GAP 20.2 mmol/L (8-16); CALCIUM 8.3 mg/dL (8.5-10.1); CARBON DIOXIDE 22.7 mmol/L (21.0-32.0); CREATININE - SERUM 4.8 mg/dL (0.6-1.3); POTASSIUM - SERUM 3.9 mmol/L (3.5-5.1)
[2017-12-03 15:39] VITALS: BP 159/67
[2017-12-03 20:00] VITALS: BP 167/57
[2017-12-04] VITALS: BP 153/69
[2017-12-04 04:00] VITALS: BP 155/65
[2017-12-04 08:15] VITALS: BP 188/61
[2017-12-04 11:46] VITALS: BP 188/80
[2017-12-04 15:55] VITALS: BP 130/59
[2017-12-04 20:00] VITALS: BP 145/70
[2017-12-05] VITALS: BP 184/74
[2017-12-05 04:00] VITALS: BP 186/74
[2017-12-05 08:52] VITALS: BP 176/86
[2017-12-05 09:34] LABS: BASOPHILS 0.2 % (0-2); HEMATOCRIT 25.3 % (36.0-48.0); IMMATURE GRANULOCYTES 3.9 % (0-5); LYMPHOCYTES 17.7 % (15-50); MCHC 31.6 g/dL (31.0-37.0); MCV 88.5 fL (80.0-100.0); MEAN PLATELET VOLUME 8.8 fL (7.4-10.4); MONOCYTES 7.3 % (2-11); NEUTROPHILS 69.9 % (40-80); PLATELET COUNT 509 10x3/uL (130-400); RBC 2.86 10x6/uL (4.00-5.40); RDW 18.1 % (11.5-14.5); WBC 18.6 10x3/uL (4.8-10.8)
[2017-12-05 09:59] LABS: PHOSPHOROUS 3.4 mg/dL (2.5-4.9); THYROID STIMULATING HORMONE 5.96 uIU/mL (0.36-3.74)
[2017-12-05 15:49] VITALS: BP 148/70
[2017-12-05 21:42] VITALS: BP 138/57
[2017-12-06 01:22] VITALS: BP 147/68
[2017-12-06 05:37] VITALS: BP 162/62
[2017-12-06 12:00] VITALS: BP 189/82
[2017-12-06 16:26] VITALS: BP 156/57
[2017-12-06 22:29] VITALS: BP 178/77
[2017-12-07] VITALS: BP 175/79
[2017-12-07 05:07] LABS: BASOPHILS 0.3 % (0-2); EOSINOPHILS 1.1 % (0-7); HEMATOCRIT 25.5 % (36.0-48.0); HEMOGLOBIN 8.1 g/dL (12-16); IMMATURE GRANULOCYTES 5.2 % (0-5); LYMPHOCYTES 15.9 % (15-50); MCH 28.3 pg (26.0-34.0); MCHC 31.8 g/dL (31.0-37.0); MCV 89.2 fL (80.0-100.0); MONOCYTES 7.4 % (2-11); NEUTROPHILS 70.1 % (40-80); PLATELET COUNT 504 10x3/uL (130-400); RBC 2.86 10x6/uL (4.00-5.40); RDW 17.9 % (11.5-14.5); WBC 17.8 10x3/uL (4.8-10.8)
[2017-12-07 05:36] LABS: ALBUMIN 1.7 g/dL (3.4-5.0); ANION GAP 17.9 mmol/L (8-16); BILIRUBIN - TOTAL 0.4 mg/dL (0.2-1.3); CALCIUM 7.9 mg/dL (8.5-10.1); CARBON DIOXIDE 25.3 mmol/L (21.0-32.0); CREATININE - SERUM 4.5 mg/dL (0.6-1.3); PHOSPHOROUS 3.4 mg/dL (2.5-4.9); POTASSIUM - SERUM 4.2 mmol/L (3.5-5.1); PROTEIN - SERUM 5.7 g/dL (6.4-8.2)
[2017-12-07 05:50] VITALS: BP 188/77
[2017-12-07 08:14] VITALS: BP 187/72
[2017-12-07 16:13] VITALS: BP 162/65
[2017-12-07 16:19] VITALS: BP 149/69
[2017-12-07 20:00] VITALS: BP 180/73
[2017-12-08] VITALS: BP 151/69
[2017-12-08 04:00] VITALS: BP 171/85
[2017-12-08 07:44] VITALS: BP 106/62
[2017-12-08 13:27] LABS: T4 THYROXINE 5.3 ug/dL (4.7-13.3); THYROID STIMULATING HORMONE 4.97 uIU/mL (0.36-3.74)
[2017-12-08 16:07] VITALS: BP 112/78
[2017-12-08 20:00] VITALS: BP 132/65
[2017-12-09 04:00] VITALS: BP 170/74
[2017-12-09 06:32] LABS: BASOPHILS 0.3 % (0-2); HEMATOCRIT 26.2 % (36.0-48.0); HEMOGLOBIN 8.2 g/dL (12-16); IMMATURE GRANULOCYTES 4.1 % (0-5); MCH 28.3 pg (26.0-34.0); MCHC 31.3 g/dL (31.0-37.0); MCV 90.3 fL (80.0-100.0); MEAN PLATELET VOLUME 8.9 fL (7.4-10.4); MONOCYTES 9.2 % (2-11); NEUTROPHILS 62.4 % (40-80); PLATELET COUNT 535 10x3/uL (130-400); RDW 18.4 % (11.5-14.5); WBC 17.2 10x3/uL (4.8-10.8)
[2017-12-09 06:56] LABS: ALBUMIN 1.7 g/dL (3.4-5.0); ANION GAP 25.3 mmol/L (8-16); BILIRUBIN - TOTAL 0.39 mg/dL (0.2-1.3); CALCIUM 8.4 mg/dL (8.5-10.1); CARBON DIOXIDE 22.3 mmol/L (21.0-32.0); CREATININE - SERUM 4.3 mg/dL (0.6-1.3); PHOSPHOROUS 3.3 mg/dL (2.5-4.9); POTASSIUM - SERUM 4.6 mmol/L (3.5-5.1); PROTEIN - SERUM 5.9 g/dL (6.4-8.2)
[2017-12-09 08:03] VITALS: BP 138/68
[2017-12-09 12:06] VITALS: BP 138/72
[2017-12-09 14:48] VITALS: BP 145/62
[2017-12-09 20:18] VITALS: BP 149/58; BP 167/69
[2017-12-10 00:49] VITALS: BP 159/67
[2017-12-10 04:50] VITALS: BP 144/68
[2017-12-10 08:19] VITALS: BP 162/63
[2017-12-10 11:39] VITALS: BP 132/74
[2017-12-10 20:07] VITALS: BP 116/53
[2017-12-11 00:11] VITALS: BP 125/52
[2017-12-11 04:36] VITALS: BP 147/45
[2017-12-11 08:27] VITALS: BP 137/70
[2017-12-11 10:57] LABS: INR 1.31 (0.85-1.17); PROTIME 15.8 SECONDS (11.6-15.0)
[2017-12-11 10:58] LABS: APTT 35.5 SECONDS (22.8-39.4)
[2017-12-11 11:04] LABS: RBC 2.56 10x6/uL (4.00-5.40)
[2017-12-11 11:07] LABS: BASOPHILS 0.3 % (0-2); EOSINOPHILS 0.1 % (0-7); HEMATOCRIT 23.2 % (36.0-48.0); HEMOGLOBIN 7.4 g/dL (12-16); IMMATURE GRANULOCYTES 3.5 % (0-5); LYMPHOCYTES 10.4 % (15-50); MCH 28.9 pg (26.0-34.0); MCHC 31.9 g/dL (31.0-37.0); MCV 90.6 fL (80.0-100.0); MEAN PLATELET VOLUME 8.7 fL (7.4-10.4); MONOCYTES 5.4 % (2-11); NEUTROPHILS 80.3 % (40-80); PLATELET COUNT 537 10x3/uL (130-400); RDW 18.5 % (11.5-14.5)
[2017-12-11 11:25] LABS: ALBUMIN 1.7 g/dL (3.4-5.0); BILIRUBIN - TOTAL 0.45 mg/dL (0.2-1.3); CALCIUM 8.8 mg/dL (8.5-10.1); CARBON DIOXIDE 18.8 mmol/L (21.0-32.0); CREATININE - SERUM 5.6 mg/dL (0.6-1.3); PHOSPHOROUS 5.3 mg/dL (2.5-4.9); POTASSIUM - SERUM 4.8 mmol/L (3.5-5.1); PROTEIN - SERUM 5.8 g/dL (6.4-8.2)
[2017-12-11 12:00] VITALS: BP 146/68
[2017-12-11 16:28] VITALS: BP 148/65
[2017-12-11 20:41] VITALS: BP 183/77
[2017-12-12 00:53] VITALS: BP 180/76
[2017-12-12 04:00] VITALS: BP 174/79
[2017-12-12 11:24] VITALS: BP 180/59
[2017-12-12 14:50] LABS: HEMATOCRIT 27.7 % (36.0-48.0); HEMOGLOBIN 9.1 g/dL (12-16); MCH 29.1 pg (26.0-34.0); MCHC 32.9 g/dL (31.0-37.0); MCV 88.5 fL (80.0-100.0); MEAN PLATELET VOLUME 8.9 fL (7.4-10.4); PLATELET COUNT 481 10x3/uL (130-400); RBC 3.13 10x6/uL (4.00-5.40); RDW 17.4 % (11.5-14.5); WBC 20.3 10x3/uL (4.8-10.8)
[2017-12-12 15:02] LABS: ALBUMIN 1.5 g/dL (3.4-5.0); ANION GAP 30.8 mmol/L (8-16); BILIRUBIN - TOTAL 0.39 mg/dL (0.2-1.3); CALCIUM 8.8 mg/dL (8.5-10.1); CARBON DIOXIDE 20.7 mmol/L (21.0-32.0); CREATININE - SERUM 6.2 mg/dL (0.6-1.3); POTASSIUM - SERUM 4.5 mmol/L (3.5-5.1); PROTEIN - SERUM 6.3 g/dL (6.4-8.2)
[2017-12-12 15:10] LABS: EOSINOPHILS 3 % (0-7); LYMPHOCYTES 10 % (15-50); NEUTROPHILS 80 % (40-80); TARGET CELLS OCC
[2017-12-12 15:11] LABS: PLATELET ESTIMATE INCREASED
[2017-12-12 15:12] LABS: ROULEAUX OCC
[2017-12-12 20:36] VITALS: BP 155/85
[2017-12-13 00:16] VITALS: BP 146/74
[2017-12-13 05:47] VITALS: BP 182/77
[2017-12-13 08:41] VITALS: BP 210/79
[2017-12-13 11:48] VITALS: BP 192/82
[2017-12-13 16:20] VITALS: BP 189/81
[2017-12-13 20:00] VITALS: BP 183/86
[2017-12-14 04:00] VITALS: BP 177/68
[2017-12-14 08:44] VITALS: BP 192/69
[2017-12-14 11:44] VITALS: BP 181/85
[2017-12-14 15:32] VITALS: BP 160/80
[2017-12-14 21:28] VITALS: BP 198/95
[2017-12-15 00:18] VITALS: BP 184/72
[2017-12-15 06:07] VITALS: BP 150/66
[2017-12-15 08:21] VITALS: BP 193/89
[2017-12-15 11:24] LABS: BASOPHILS 0.3 % (0-2); EOSINOPHILS 0.8 % (0-7); HEMATOCRIT 27.5 % (36.0-48.0); IMMATURE GRANULOCYTES 3.6 % (0-5); LYMPHOCYTES 15.3 % (15-50); MCH 29.4 pg (26.0-34.0); MCHC 32.7 g/dL (31.0-37.0); MCV 89.9 fL (80.0-100.0); MEAN PLATELET VOLUME 8.9 fL (7.4-10.4); MONOCYTES 6.7 % (2-11); NEUTROPHILS 73.3 % (40-80); PLATELET COUNT 437 10x3/uL (130-400); RBC 3.06 10x6/uL (4.00-5.40); RDW 17.3 % (11.5-14.5)
[2017-12-15 11:50] LABS: ALBUMIN 1.5 g/dL (3.4-5.0); BILIRUBIN - TOTAL 0.45 mg/dL (0.2-1.3); CALCIUM 8.3 mg/dL (8.5-10.1); CARBON DIOXIDE 18.8 mmol/L (21.0-32.0); CREATININE - SERUM 6.8 mg/dL (0.6-1.3); PHOSPHOROUS 5.7 mg/dL (2.5-4.9); POTASSIUM - SERUM 4.8 mmol/L (3.5-5.1)
[2017-12-15 21:08] VITALS: BP 196/85
[2017-12-16 01:35] VITALS: BP 173/73
[2017-12-16 05:29] VITALS: BP 198/74
[2017-12-16 08:46] VITALS: BP 167/81
[2017-12-16 12:17] VITALS: BP 179/86
[2017-12-16 15:21] LABS: BASOPHILS 0.2 % (0-2); EOSINOPHILS 0.4 % (0-7); HEMATOCRIT 29.3 % (36.0-48.0); HEMOGLOBIN 9.6 g/dL (12-16); IMMATURE GRANULOCYTES 2.4 % (0-5); MCH 29.3 pg (26.0-34.0); MCHC 32.8 g/dL (31.0-37.0); MCV 89.3 fL (80.0-100.0); MEAN PLATELET VOLUME 8.5 fL (7.4-10.4); PLATELET COUNT 466 10x3/uL (130-400); RBC 3.28 10x6/uL (4.00-5.40); RDW 17.1 % (11.5-14.5); WBC 20.1 10x3/uL (4.8-10.8)
[2017-12-16 15:50] LABS: ANION GAP 26.4 mmol/L (8-16); CALCIUM 8.7 mg/dL (8.5-10.1); CARBON DIOXIDE 20.6 mmol/L (21.0-32.0); CREATININE - SERUM 7.4 mg/dL (0.6-1.3)
[2017-12-16 16:16] LABS: INR 1.21 (0.85-1.17); PROTIME 14.9 SECONDS (11.6-15.0)
[2017-12-16 21:01] VITALS: BP 142/74
[2017-12-17 01:29] VITALS: BP 129/69
[2017-12-17 05:09] VITALS: BP 164/83
[2017-12-17 08:48] VITALS: BP 109/72
[2017-12-17 13:47] VITALS: BP 150/81
[2017-12-17 15:41] VITALS: BP 150/81
[2017-12-17 22:34] VITALS: BP 160/66
[2017-12-18 01:00] VITALS: BP 156/68
[2017-12-18 05:59] VITALS: BP 181/79
[2017-12-18 07:53] VITALS: BP 180/81
[2017-12-18 12:01] LABS: BASOPHILS 0.2 % (0-2); EOSINOPHILS 0.4 % (0-7); HEMATOCRIT 28.3 % (36.0-48.0); HEMOGLOBIN 9.3 g/dL (12-16); IMMATURE GRANULOCYTES 3.4 % (0-5); LYMPHOCYTES 14.2 % (15-50); MCH 29.2 pg (26.0-34.0); MCHC 32.9 g/dL (31.0-37.0); MEAN PLATELET VOLUME 8.9 fL (7.4-10.4); MONOCYTES 7.3 % (2-11); NEUTROPHILS 74.5 % (40-80); PLATELET COUNT 512 10x3/uL (130-400); RBC 3.18 10x6/uL (4.00-5.40); RDW 17.3 % (11.5-14.5); WBC 20.1 10x3/uL (4.8-10.8)
[2017-12-18 12:26] LABS: ANION GAP 31.2 mmol/L (8-16); CALCIUM 8.8 mg/dL (8.5-10.1); CARBON DIOXIDE 18.3 mmol/L (21.0-32.0); CREATININE - SERUM 6.3 mg/dL (0.6-1.3); PHOSPHOROUS 6.2 mg/dL (2.5-4.9); POTASSIUM - SERUM 5.5 mmol/L (3.5-5.1)
[2017-12-18 16:27] VITALS: BP 216/76
[2017-12-18 20:00] VITALS: BP 190/79
[2017-12-19] VITALS: BP 176/72
[2017-12-19 04:00] VITALS: BP 208/86
[2017-12-19 10:28] LABS: BASOPHILS 0.3 % (0-2); EOSINOPHILS 0.5 % (0-7); HEMATOCRIT 28.5 % (36.0-48.0); HEMOGLOBIN 9.2 g/dL (12-16); IMMATURE GRANULOCYTES 4.6 % (0-5); LYMPHOCYTES 11.3 % (15-50); MCH 29.1 pg (26.0-34.0); MCHC 32.3 g/dL (31.0-37.0); MCV 90.2 fL (80.0-100.0); MEAN PLATELET VOLUME 8.8 fL (7.4-10.4); MONOCYTES 6.8 % (2-11); NEUTROPHILS 76.5 % (40-80); PLATELET COUNT 493 10x3/uL (130-400); RBC 3.16 10x6/uL (4.00-5.40); WBC 24.1 10x3/uL (4.8-10.8)
[2017-12-19 10:44] LABS: ANION GAP 28.4 mmol/L (8-16); CALCIUM 9.3 mg/dL (8.5-10.1); CARBON DIOXIDE 19.8 mmol/L (21.0-32.0); CREATININE - SERUM 6.8 mg/dL (0.6-1.3); PHOSPHOROUS 5.8 mg/dL (2.5-4.9); POTASSIUM - SERUM 5.2 mmol/L (3.5-5.1)
[2017-12-19 16:33] VITALS: BP 149/70
[2017-12-19 21:40] VITALS: BP 189/47
[2017-12-20 06:14] VITALS: BP 156/55
[2017-12-20 06:33] VITALS: BP 174/72
[2017-12-20 08:21] VITALS: BP 216/85
[2017-12-20 11:36] VITALS: BP 143/53
[2017-12-20 16:14] VITALS: BP 208/71
[2017-12-20 20:00] VITALS: BP 175/78
[2017-12-21] VITALS: BP 172/65
[2017-12-21 04:00] VITALS: BP 184/71
[2017-12-21 08:00] VITALS: BP 198/84
[2017-12-21 08:44] VITALS: BP 172/64
[2017-12-21 12:36] VITALS: BP 159/81
[2017-12-21 17:45] VITALS: BP 100/66
[2017-12-22] VITALS: BP 200/85
[2017-12-22 07:00] VITALS: BP 168/87
[2017-12-22 11:28] LABS: ALBUMIN 1.5 g/dL (3.4-5.0); ANION GAP 22.7 mmol/L (8-16); BILIRUBIN - TOTAL 0.34 mg/dL (0.2-1.3); CARBON DIOXIDE 23.4 mmol/L (21.0-32.0); CREATININE - SERUM 5.9 mg/dL (0.6-1.3); POTASSIUM - SERUM 5.1 mmol/L (3.5-5.1); PROTEIN - SERUM 6.3 g/dL (6.4-8.2); THYROID STIMULATING HORMONE 12.35 uIU/mL (0.36-3.74)
[2017-12-22 14:53] LABS: HEMATOCRIT 31.1 % (36.0-48.0); HEMOGLOBIN 11.1 g/dL (12-16); LYMPHOCYTES 11.1 % (15-50); MCH 32.5 pg (26.0-34.0); MCHC 35.7 g/dL (31.0-37.0); MCV 90.9 fL (80.0-100.0); MEAN PLATELET VOLUME 9.1 fL (7.4-10.4); NEUTROPHILS 83.6 % (40-80); PLATELET COUNT 490 10x3/uL (130-400); RBC 3.42 10x6/uL (4.00-5.40); RDW 18.8 % (11.5-14.5); WBC 25.4 10x3/uL (4.8-10.8)
[2017-12-22 20:00] VITALS: BP 190/84
[2017-12-23] VITALS: BP 141/90
[2017-12-23 04:00] VITALS: BP 146/68
[2017-12-23 09:54] VITALS: BP 157/61
[2017-12-23 11:00] VITALS: BP 192/75
[2017-12-23 20:00] VITALS: BP 182/64
[2017-12-24] VITALS: BP 192/73
[2017-12-24 04:00] VITALS: BP 199/71
[2017-12-24 09:28] VITALS: BP 218/93
[2017-12-24 10:17] LABS: BASOPHILS 0.3 % (0-2); EOSINOPHILS 0.6 % (0-7); HEMATOCRIT 25.7 % (36.0-48.0); HEMOGLOBIN 8.2 g/dL (12-16); IMMATURE GRANULOCYTES 3.5 % (0-5); MCH 29.2 pg (26.0-34.0); MCHC 31.9 g/dL (31.0-37.0); MCV 91.5 fL (80.0-100.0); MEAN PLATELET VOLUME 8.9 fL (7.4-10.4); MONOCYTES 5.8 % (2-11); NEUTROPHILS 75.8 % (40-80); PLATELET COUNT 572 10x3/uL (130-400); RBC 2.81 10x6/uL (4.00-5.40); RDW 17.3 % (11.5-14.5); WBC 20.5 10x3/uL (4.8-10.8)
[2017-12-24 10:25] LABS: ANION GAP 20.1 mmol/L (8-16); CALCIUM 8.9 mg/dL (8.5-10.1); CARBON DIOXIDE 23.4 mmol/L (21.0-32.0); CREATININE - SERUM 5.2 mg/dL (0.6-1.3); POTASSIUM - SERUM 5.5 mmol/L (3.5-5.1); VANCOMYCIN - RANDOM 12.6 ug/mL (10.0-20.0)
[2017-12-24 16:10] VITALS: BP 150/80
[2017-12-24 20:00] VITALS: BP 149/48
[2017-12-25] VITALS: BP 152/61
[2017-12-25 04:55] VITALS: BP 162/62
[2017-12-25 09:23] VITALS: BP 204/76
[2017-12-25 11:50] VITALS: BP 175/86
[2017-12-25 15:48] VITALS: BP 181/68
[2017-12-25 21:37] VITALS: BP 184/63
[2017-12-26 01:32] VITALS: BP 159/63
[2017-12-26 06:11] VITALS: BP 190/78
[2017-12-26 09:07] VITALS: BP 197/81
[2017-12-26 12:29] VITALS: BP 214/81
[2017-12-26 16:54] VITALS: BP 146/51
[2017-12-26 16:58] LABS: HEMATOCRIT 23.6 % (36.0-48.0); HEMOGLOBIN 7.7 g/dL (12-16); MCH 29.3 pg (26.0-34.0); MCHC 32.6 g/dL (31.0-37.0); MCV 89.7 fL (80.0-100.0); MEAN PLATELET VOLUME 8.8 fL (7.4-10.4); PLATELET COUNT 579 10x3/uL (130-400); RBC 2.63 10x6/uL (4.00-5.40); RDW 16.7 % (11.5-14.5); WBC 25.3 10x3/uL (4.8-10.8)
[2017-12-26 17:12] LABS: ANION GAP 25.9 mmol/L (8-16); CALCIUM 9.3 mg/dL (8.5-10.1); CARBON DIOXIDE 20.7 mmol/L (21.0-32.0); CREATININE - SERUM 4.9 mg/dL (0.6-1.3); VANCOMYCIN - RANDOM 8.5 ug/mL (10.0-20.0)
[2017-12-26 17:14] LABS: POTASSIUM - SERUM 6.6 mmol/L (3.5-5.1)
[2017-12-26 17:22] LABS: LYMPHOCYTES 19 % (15-50); MONOCYTES 4 % (2-11); NEUTROPHILS 73 % (40-80)
[2017-12-26 17:23] LABS: PLATELET ESTIMATE INCREASED
[2017-12-26 17:24] LABS: POIKILOCYTOSIS OCC; POLYCHROMASIA OCC; TARGET CELLS 1+
[2017-12-26 20:51] VITALS: BP 180/66
[2017-12-27 00:37] VITALS: BP 176/65
[2017-12-27 06:06] VITALS: BP 172/65
[2017-12-27 08:48] VITALS: BP 189/63
[2017-12-27 11:58] VITALS: BP 152/53
[2017-12-27 17:09] VITALS: BP 190/95
[2017-12-27 20:30] VITALS: BP 190/77
[2017-12-28 00:30] VITALS: BP 199/70
[2017-12-28 04:30] VITALS: BP 195/82
[2017-12-28 09:39] VITALS: BP 197/87
[2017-12-28 13:30] VITALS: BP 190/87
[2017-12-28 17:09] VITALS: BP 165/57
[2017-12-28 20:00] VITALS: BP 187/64
[2017-12-29] VITALS: BP 188/67
[2017-12-29 04:00] VITALS: BP 191/67
[2017-12-29 08:21] VITALS: BP 197/79
[2017-12-29 12:26] LABS: BASOPHILS 0.3 % (0-2); EOSINOPHILS 0.7 % (0-7); HEMATOCRIT 22.9 % (36.0-48.0); IMMATURE GRANULOCYTES 2.2 % (0-5); LYMPHOCYTES 6.7 % (15-50); MCH 29.2 pg (26.0-34.0); MCHC 32.8 g/dL (31.0-37.0); MCV 89.1 fL (80.0-100.0); MONOCYTES 6.8 % (2-11); NEUTROPHILS 83.3 % (40-80); PLATELET COUNT 544 10x3/uL (130-400); RBC 2.57 10x6/uL (4.00-5.40); RDW 16.4 % (11.5-14.5); WBC 18.3 10x3/uL (4.8-10.8)
[2017-12-29 12:31] LABS: HEMOGLOBIN 7.5 g/dL (12-16)
[2017-12-29 12:43] LABS: ANION GAP 16.5 mmol/L (8-16); CALCIUM 8.4 mg/dL (8.5-10.1); CARBON DIOXIDE 27.5 mmol/L (21.0-32.0); CREATININE - SERUM 2.6 mg/dL (0.6-1.3); VANCOMYCIN - RANDOM 15.7 ug/mL (10.0-20.0)
[2017-12-29 16:30] VITALS: BP 204/92
[2017-12-29 18:32] VITALS: BP 186/72
[2017-12-29 20:49] VITALS: BP 193/76
[2017-12-30] VITALS (8 sets, daily range): BP systolic 128–175; BP diastolic 41–95
[2017-12-30 06:59] LABS: CALCIUM 8.9 mg/dL (8.5-10.1); CARBON DIOXIDE 23.9 mmol/L (21.0-32.0)
[2017-12-30 07:02] LABS: CREATININE - SERUM 3.8 mg/dL (0.6-1.3); POTASSIUM - SERUM 5.9 mmol/L (3.5-5.1)
[2017-12-30 07:13] LABS: BASOPHILS 0.3 % (0-2); EOSINOPHILS 0.1 % (0-7); HEMATOCRIT 45.6 % (36.0-48.0); HEMOGLOBIN 14.9 g/dL (12-16); IMMATURE GRANULOCYTES 4.1 % (0-5); LYMPHOCYTES 9.7 % (15-50); MCH 29.2 pg (26.0-34.0); MCHC 32.7 g/dL (31.0-37.0); MCV 89.4 fL (80.0-100.0); MEAN PLATELET VOLUME 9.6 fL (7.4-10.4); MONOCYTES 5.5 % (2-11); NEUTROPHILS 80.3 % (40-80); PLATELET COUNT 284 10x3/uL (130-400); RDW 16.8 % (11.5-14.5); WBC 20.7 10x3/uL (4.8-10.8)
[2017-12-31 00:31] VITALS: BP 137/54
[2017-12-31 04:37] VITALS: BP 160/68
[2017-12-31 07:12] LABS: BASOPHILS 0.2 % (0-2); EOSINOPHILS 0.6 % (0-7); HEMATOCRIT 26.9 % (36.0-48.0); HEMOGLOBIN 8.9 g/dL (12-16); IMMATURE GRANULOCYTES 3.5 % (0-5); LYMPHOCYTES 8.6 % (15-50); MCH 29.8 pg (26.0-34.0); MCHC 33.1 g/dL (31.0-37.0); MEAN PLATELET VOLUME 9.2 fL (7.4-10.4); MONOCYTES 7.4 % (2-11); NEUTROPHILS 79.7 % (40-80); PLATELET COUNT 508 10x3/uL (130-400); RBC 2.99 10x6/uL (4.00-5.40); RDW 16.6 % (11.5-14.5); WBC 22.5 10x3/uL (4.8-10.8)
[2017-12-31 07:22] LABS: ALBUMIN 1.7 g/dL (3.4-5.0); BILIRUBIN - TOTAL 0.34 mg/dL (0.2-1.3); CALCIUM 9.6 mg/dL (8.5-10.1); CARBON DIOXIDE 23.6 mmol/L (21.0-32.0); CREATININE - SERUM 4.3 mg/dL (0.6-1.3); PHOSPHOROUS 5.4 mg/dL (2.5-4.9); PROTEIN - SERUM 7.1 g/dL (6.4-8.2); VANCOMYCIN - RANDOM 14.9 ug/mL (10.0-20.0)
[2017-12-31 07:25] LABS: ANION GAP 20.4 mmol/L (8-16)
[2017-12-31 07:52] VITALS: BP 147/56
[2018-01-01 01:29] VITALS: BP 176/56
[2018-01-01 04:30] VITALS: BP 190/78
[2018-01-01 08:03] VITALS: BP 179/68
[2018-01-01 11:55] VITALS: BP 221/84
[2018-01-01 15:39] VITALS: BP 199/60
[2018-01-01 20:31] VITALS: BP 203/57
[2018-01-02 01:10] VITALS: BP 181/59
[2018-01-02 04:00] VITALS: BP 191/51
[2018-01-02 08:05] VITALS: BP 202/52
[2018-01-02 11:41] VITALS: BP 186/49
[2018-01-02 16:14] VITALS: BP 176/34
[2018-01-02 21:26] VITALS: BP 175/41
[2018-01-03 00:45] VITALS: BP 155/44
[2018-01-03 06:29] VITALS: BP 180/41
[2018-01-03 08:53] VITALS: BP 190/43
[2018-01-03 12:02] VITALS: BP 183/41
[2018-01-03 14:37] LABS: BASOPHILS 0.4 % (0-2); EOSINOPHILS 0.7 % (0-7); HEMATOCRIT 23.9 % (36.0-48.0); HEMOGLOBIN 7.8 g/dL (12-16); IMMATURE GRANULOCYTES 4.6 % (0-5); LYMPHOCYTES 11.1 % (15-50); MCH 29.5 pg (26.0-34.0); MCHC 32.6 g/dL (31.0-37.0); MCV 90.5 fL (80.0-100.0); MEAN PLATELET VOLUME 9.7 fL (7.4-10.4); MONOCYTES 7.7 % (2-11); NEUTROPHILS 75.5 % (40-80); PLATELET COUNT 475 10x3/uL (130-400); RBC 2.64 10x6/uL (4.00-5.40); RDW 15.6 % (11.5-14.5); WBC 19.5 10x3/uL (4.8-10.8)
[2018-01-03 15:31] VITALS: BP 146/70
[2018-01-03 15:31] LABS: ALBUMIN 1.5 g/dL (3.4-5.0); ANION GAP 23.2 mmol/L (8-16); BILIRUBIN - TOTAL 0.31 mg/dL (0.2-1.3); CARBON DIOXIDE 23.1 mmol/L (21.0-32.0); CREATININE - SERUM 4.7 mg/dL (0.6-1.3); MAGNESIUM - SERUM 2.4 mg/dL (1.8-2.4); PHOSPHOROUS 6.2 mg/dL (2.5-4.9); POTASSIUM - SERUM 5.3 mmol/L (3.5-5.1); PROTEIN - SERUM 6.5 g/dL (6.4-8.2)
[2018-01-03 22:11] VITALS: BP 144/48
[2018-01-04 00:41] VITALS: BP 168/62
[2018-01-04 05:34] VITALS: BP 150/60
[2018-01-04 07:56] VITALS: BP 108/62
[2018-01-04 10:36] VITALS: BP 102/66
[2018-01-04 15:18] VITALS: BP 102/59
[2018-01-04 20:00] VITALS: BP 165/50
[2018-01-05 04:00] VITALS: BP 159/40
[2018-01-05 08:34] VITALS: BP 169/52
[2018-01-05 11:34] LABS: BASOPHILS 0.2 % (0-2); EOSINOPHILS 0.7 % (0-7); HEMATOCRIT 22.5 % (36.0-48.0); IMMATURE GRANULOCYTES 5.6 % (0-5); LYMPHOCYTES 9.8 % (15-50); MCH 29.5 pg (26.0-34.0); MCV 92.2 fL (80.0-100.0); MEAN PLATELET VOLUME 10.1 fL (7.4-10.4); MONOCYTES 7.3 % (2-11); NEUTROPHILS 76.4 % (40-80); PLATELET COUNT 457 10x3/uL (130-400); RBC 2.44 10x6/uL (4.00-5.40); RDW 15.9 % (11.5-14.5); WBC 24.8 10x3/uL (4.8-10.8)
[2018-01-05 11:35] LABS: HEMOGLOBIN 7.2 g/dL (12-16)
[2018-01-05 12:02] LABS: ALBUMIN 1.5 g/dL (3.4-5.0); CALCIUM 8.5 mg/dL (8.5-10.1); CARBON DIOXIDE 24.7 mmol/L (21.0-32.0); CREATININE - SERUM 4.9 mg/dL (0.6-1.3); PHOSPHOROUS 5.9 mg/dL (2.5-4.9); POTASSIUM - SERUM 4.7 mmol/L (3.5-5.1); THYROID STIMULATING HORMONE 14.37 uIU/mL (0.36-3.74)
[2018-01-05 12:10] LABS: % SATURATION 18 % (15-55); IRON 22 ug/dl (35-150); TOTAL IRON BIND CAPACITY 119 ug/dl (260-445); UNSAT IRON BIND CAPACITY 97 ug/dl (150-375)
[2018-01-05 12:38] VITALS: BP 163/55
[2018-01-05 16:07] VITALS: BP 167/60
[2018-01-05 20:00] VITALS: BP 193/51
[2018-01-06] VITALS: BP 120/49
[2018-01-06 04:00] VITALS: BP 139/51
[2018-01-06 08:36] VITALS: BP 128/69
[2018-01-06 12:39] VITALS: BP 97/33
[2018-01-06 20:00] VITALS: BP 123/39
[2018-01-07] VITALS: BP 134/40
[2018-01-07 04:00] VITALS: BP 168/60
[2018-01-07 08:17] VITALS: BP 154/32
[2018-01-07 11:56] VITALS: BP 173/46
[2018-01-07 15:33] VITALS: BP 178/51
[2018-01-07 21:09] VITALS: BP 140/50
[2018-01-08 01:28] VITALS: BP 132/59
[2018-01-08 05:39] VITALS: BP 111/68
[2018-01-08 08:16] VITALS: BP 131/72
[2018-01-08 08:34] LABS: BASOPHILS 0.2 % (0-2); EOSINOPHILS 0.6 % (0-7); HEMATOCRIT 24.1 % (36.0-48.0); HEMOGLOBIN 7.8 g/dL (12-16); IMMATURE GRANULOCYTES 2.5 % (0-5); LYMPHOCYTES 11.1 % (15-50); MCH 29.3 pg (26.0-34.0); MCHC 32.4 g/dL (31.0-37.0); MCV 90.6 fL (80.0-100.0); MEAN PLATELET VOLUME 9.9 fL (7.4-10.4); MONOCYTES 6.3 % (2-11); NEUTROPHILS 79.3 % (40-80); PLATELET COUNT 441 10x3/uL (130-400); RBC 2.66 10x6/uL (4.00-5.40); RDW 15.8 % (11.5-14.5); WBC 25.2 10x3/uL (4.8-10.8)
[2018-01-08 08:40] LABS: ALBUMIN 1.3 g/dL (3.4-5.0); ANION GAP 22.3 mmol/L (8-16); BILIRUBIN - TOTAL 0.37 mg/dL (0.2-1.3); CALCIUM 9.2 mg/dL (8.5-10.1); CARBON DIOXIDE 23.7 mmol/L (21.0-32.0); CREATININE - SERUM 5.4 mg/dL (0.6-1.3); PHOSPHOROUS 7.9 mg/dL (2.5-4.9)
[2018-01-08 11:25] VITALS: BP 146/47
[2018-01-08 15:31] VITALS: BP 124/43
[2018-01-08 20:00] VITALS: BP 151/49
[2018-01-09] VITALS: BP 178/61
[2018-01-09 04:00] VITALS: BP 130/110
[2018-01-09 08:57] VITALS: BP 118/66
[2018-01-09 15:49] LABS: HEMATOCRIT 23.9 % (36.0-48.0); HEMOGLOBIN 7.8 g/dL (12-16); MCH 29.8 pg (26.0-34.0); MCHC 32.6 g/dL (31.0-37.0); MCV 91.2 fL (80.0-100.0); MEAN PLATELET VOLUME 9.7 fL (7.4-10.4); PLATELET COUNT 443 10x3/uL (130-400); RBC 2.62 10x6/uL (4.00-5.40); RDW 15.6 % (11.5-14.5); WBC 23.5 10x3/uL (4.8-10.8)
[2018-01-09 16:16] LABS: LYMPHOCYTES 8 % (15-50); MONOCYTES 2 % (2-11); NEUTROPHILS 90 % (40-80)
[2018-01-09 16:17] LABS: PLATELET ESTIMATE INCREASED
[2018-01-09 16:51] LABS: BILIRUBIN - TOTAL 0.49 mg/dL (0.2-1.3); CALCIUM 8.4 mg/dL (8.5-10.1); CARBON DIOXIDE 23.2 mmol/L (21.0-32.0); PHOSPHOROUS 8.4 mg/dL (2.5-4.9); PROTEIN - SERUM 5.6 g/dL (6.4-8.2); VANCOMYCIN - RANDOM 16.8 ug/mL (10.0-20.0)
[2018-01-09 16:58] LABS: ALBUMIN 1.9 g/dL (3.4-5.0); ANION GAP 25.8 mmol/L (8-16)
[2018-01-09 20:00] VITALS: BP 188/55
[2018-01-10 04:00] VITALS: BP 193/49
[2018-01-10 08:55] VITALS: BP 141/42
[2018-01-10 11:46] VITALS: BP 154/63
[2018-01-10 16:02] VITALS: BP 157/56
[2018-01-10 20:15] VITALS: BP 119/59
[2018-01-11 00:05] VITALS: BP 154/43
[2018-01-11 05:25] VITALS: BP 143/63
[2018-01-11 08:46] VITALS: BP 148/91
[2018-01-11 12:06] VITALS: BP 147/50
[2018-01-11 12:36] LABS: BASOPHILS 0.3 % (0-2); EOSINOPHILS 1.2 % (0-7); HEMATOCRIT 23.9 % (36.0-48.0); HEMOGLOBIN 7.6 g/dL (12-16); IMMATURE GRANULOCYTES 3.8 % (0-5); MCH 29.3 pg (26.0-34.0); MCHC 31.8 g/dL (31.0-37.0); MCV 92.3 fL (80.0-100.0); MEAN PLATELET VOLUME 9.7 fL (7.4-10.4); MONOCYTES 8.2 % (2-11); NEUTROPHILS 76.5 % (40-80); PLATELET COUNT 439 10x3/uL (130-400); RBC 2.59 10x6/uL (4.00-5.40); RDW 15.5 % (11.5-14.5); WBC 19.1 10x3/uL (4.8-10.8)
[2018-01-11 13:09] LABS: ALBUMIN 1.6 g/dL (3.4-5.0); BILIRUBIN - TOTAL 0.36 mg/dL (0.2-1.3); CALCIUM 9.1 mg/dL (8.5-10.1); CARBON DIOXIDE 27.8 mmol/L (21.0-32.0); CREATININE - SERUM 4.9 mg/dL (0.6-1.3); THYROID STIMULATING HORMONE 13.03 uIU/mL (0.36-3.74)
[2018-01-11 13:12] LABS: ANION GAP 15.8 mmol/L (8-16); POTASSIUM - SERUM 4.6 mmol/L (3.5-5.1)
[2018-01-11 16:20] VITALS: BP 149/77
[2018-01-11 20:05] VITALS: BP 166/97
[2018-01-12 01:29] VITALS: BP 136/85
[2018-01-12 05:35] VITALS: BP 150/70
[2018-01-12 06:25] LABS: BASOPHILS 0.4 % (0-2); EOSINOPHILS 1.3 % (0-7); HEMATOCRIT 23.8 % (36.0-48.0); IMMATURE GRANULOCYTES 4.7 % (0-5); LYMPHOCYTES 12.2 % (15-50); MCHC 31.5 g/dL (31.0-37.0); MCV 91.9 fL (80.0-100.0); MEAN PLATELET VOLUME 9.3 fL (7.4-10.4); MONOCYTES 8.8 % (2-11); NEUTROPHILS 72.6 % (40-80); PLATELET COUNT 379 10x3/uL (130-400); RBC 2.59 10x6/uL (4.00-5.40); RDW 15.6 % (11.5-14.5); WBC 16.5 10x3/uL (4.8-10.8)
[2018-01-12 06:34] LABS: HEMOGLOBIN 7.5 g/dL (12-16)
[2018-01-12 06:56] LABS: ALBUMIN 1.5 g/dL (3.4-5.0); ANION GAP 16.6 mmol/L (8-16); BILIRUBIN - TOTAL 0.38 mg/dL (0.2-1.3); CALCIUM 8.9 mg/dL (8.5-10.1); CARBON DIOXIDE 26.5 mmol/L (21.0-32.0); CREATININE - SERUM 3.8 mg/dL (0.6-1.3); POTASSIUM - SERUM 4.1 mmol/L (3.5-5.1); PROTEIN - SERUM 5.2 g/dL (6.4-8.2); VANCOMYCIN - PEAK 15.1 ug/mL (18.0-26.0)
[2018-01-12 08:27] VITALS: BP 156/54
[2018-01-12 11:36] VITALS: BP 143/75
[2018-01-12 20:30] VITALS: BP 159/84
[2018-01-13 01:26] VITALS: BP 188/63
[2018-01-13 05:39] VITALS: BP 130/52
[2018-01-13 06:59] LABS: BASOPHILS 0.4 % (0-2); EOSINOPHILS 1.2 % (0-7); HEMATOCRIT 23.8 % (36.0-48.0); IMMATURE GRANULOCYTES 5.8 % (0-5); LYMPHOCYTES 12.7 % (15-50); MCHC 31.1 g/dL (31.0-37.0); MCV 93.3 fL (80.0-100.0); MEAN PLATELET VOLUME 9.9 fL (7.4-10.4); MONOCYTES 8.4 % (2-11); NEUTROPHILS 71.5 % (40-80); PLATELET COUNT 420 10x3/uL (130-400); RBC 2.55 10x6/uL (4.00-5.40); RDW 15.6 % (11.5-14.5); WBC 17.9 10x3/uL (4.8-10.8)
[2018-01-13 07:10] LABS: HEMOGLOBIN 7.4 g/dL (12-16)
[2018-01-13 07:33] LABS: CALCIUM 8.8 mg/dL (8.5-10.1); CREATININE - SERUM 4.4 mg/dL (0.6-1.3); VANCOMYCIN - PEAK 22.7 ug/mL (18.0-26.0); VANCOMYCIN - RANDOM 22.7 ug/mL (10.0-20.0)
[2018-01-13 07:45] VITALS: BP 150/53
[2018-01-13 15:40] VITALS: BP 200/74
[2018-01-13 20:17] VITALS: BP 206/49
[2018-01-14 00:58] VITALS: BP 157/79
[2018-01-14 05:16] VITALS: BP 185/44
[2018-01-14 07:41] VITALS: BP 168/53
[2018-01-14 11:36] VITALS: BP 155/72
[2018-01-14 16:08] VITALS: BP 229/79
[2018-01-14 20:00] VITALS: BP 188/71
[2018-01-15 04:00] VITALS: BP 193/57
[2018-01-15 07:38] VITALS: BP 179/54
[2018-01-15 09:54] LABS: ALBUMIN 1.5 g/dL (3.4-5.0); ANION GAP 20.6 mmol/L (8-16); BILIRUBIN - TOTAL 0.43 mg/dL (0.2-1.3); CALCIUM 9.7 mg/dL (8.5-10.1); CARBON DIOXIDE 23.7 mmol/L (21.0-32.0); CREATININE - SERUM 4.1 mg/dL (0.6-1.3); PHOSPHOROUS 4.3 mg/dL (2.5-4.9); POTASSIUM - SERUM 4.3 mmol/L (3.5-5.1); PROTEIN - SERUM 5.9 g/dL (6.4-8.2); THYROID STIMULATING HORMONE 10.53 uIU/mL (0.36-3.74); VANCOMYCIN - RANDOM 27.5 ug/mL (10.0-20.0)
[2018-01-15 10:04] LABS: BASOPHILS 0.2 % (0-2); EOSINOPHILS 0.6 % (0-7); HEMATOCRIT 28.7 % (36.0-48.0); HEMOGLOBIN 9.4 g/dL (12-16); LYMPHOCYTES 9.4 % (15-50); MCH 29.2 pg (26.0-34.0); MCHC 32.8 g/dL (31.0-37.0); MCV 89.1 fL (80.0-100.0); MEAN PLATELET VOLUME 9.8 fL (7.4-10.4); MONOCYTES 7.6 % (2-11); NEUTROPHILS 79.2 % (40-80); PLATELET COUNT 383 10x3/uL (130-400); RBC 3.22 10x6/uL (4.00-5.40); RDW 15.9 % (11.5-14.5); WBC 20.7 10x3/uL (4.8-10.8)
[2018-01-15 15:45] VITALS: BP 185/52
[2018-01-15 20:32] VITALS: BP 199/66
[2018-01-16 00:19] VITALS: BP 182/70
[2018-01-16 04:44] VITALS: BP 171/78
[2018-01-16 08:30] VITALS: BP 153/87
[2018-01-16 11:36] VITALS: BP 205/56
[2018-01-16 12:14] LABS: BASOPHILS 0.3 % (0-2); EOSINOPHILS 0.4 % (0-7); HEMOGLOBIN 10.1 g/dL (12-16); IMMATURE GRANULOCYTES 1.6 % (0-5); LYMPHOCYTES 7.6 % (15-50); MCH 29.5 pg (26.0-34.0); MCHC 32.6 g/dL (31.0-37.0); MCV 90.6 fL (80.0-100.0); MEAN PLATELET VOLUME 9.9 fL (7.4-10.4); MONOCYTES 6.7 % (2-11); NEUTROPHILS 83.4 % (40-80); PLATELET COUNT 385 10x3/uL (130-400); RBC 3.42 10x6/uL (4.00-5.40); RDW 15.9 % (11.5-14.5); WBC 20.6 10x3/uL (4.8-10.8)
[2018-01-16 12:21] LABS: ANION GAP 21.5 mmol/L (8-16); CALCIUM 9.4 mg/dL (8.5-10.1); CARBON DIOXIDE 23.3 mmol/L (21.0-32.0); CREATININE - SERUM 3.8 mg/dL (0.6-1.3); POTASSIUM - SERUM 4.8 mmol/L (3.5-5.1); VANCOMYCIN - RANDOM 21.6 ug/mL (10.0-20.0)
[2018-01-16 12:23] LABS: INR 1.2 (0.85-1.17); PROTIME 14.8 SECONDS (11.6-15.0)
[2018-01-16 15:26] VITALS: BP 210/85
[2018-01-16 20:57] VITALS: BP 162/70
[2018-01-17 06:26] VITALS: BP 190/80
[2018-01-17 08:23] VITALS: BP 201/65
[2018-01-17 16:11] VITALS: BP 177/38
[2018-01-17 21:07] VITALS: BP 186/57
[2018-01-18 01:16] VITALS: BP 156/46
[2018-01-18 05:10] VITALS: BP 112/59
[2018-01-18 10:00] VITALS: BP 95/50
[2018-01-19 04:00] VITALS: BP 145/48
[2018-01-19 08:11] VITALS: BP 147/60
[2018-01-19 11:50] VITALS: BP 143/55
[2018-01-19 15:52] VITALS: BP 170/44
[2018-01-19 20:34] VITALS: BP 114/67
[2018-01-20 01:15] VITALS: BP 148/57
[2018-01-20 05:40] VITALS: BP 178/50
[2018-01-20 08:42] VITALS: BP 121/28
[2018-01-20 16:04] VITALS: BP 114/83
[2018-01-20 16:13] LABS: HEPATITIS C ANTIBODY <0.1 (0.0-0.9)
[2018-01-20 21:02] VITALS: BP 129/66
[2018-01-21 06:11] VITALS: BP 149/85
[2018-01-21 07:48] VITALS: BP 140/83
[2018-01-21] MEDS ORDERED: TOPROL XL100 MG PO ×2 (10:09→11:26)
[2018-01-21] MEDS ORDERED: COZAAR50 MG PO ×2 (10:09→11:26)
[2018-01-21] MEDS ORDERED: VELTASSA8.4 GM PO (10:11)
[2018-01-21] MEDS ORDERED: COLACE100 MG PO ×2 (10:11→11:26)
[2018-01-21] MEDS ORDERED: MIRALAX17 GM PO ×2 (10:11→11:26)
[2018-01-21] MEDS ORDERED: SYNTHROID125 MCG PO ×2 (10:12→11:26)
[2018-01-21] MEDS ORDERED: LANTUS INSULIN10 ML SC ×2 (10:13→11:26)
[2018-01-21] MEDS ORDERED: RENVELA2.4 GM PO ×2 (10:13→11:26)
[2018-01-21 11:52] VITALS: BP 130/83
== END 2018-01-21 13:23 | disposition home health service (06) | DRG 853 ==
LOC: D.ER 12:13 → D.M2 16:52 → D.EDHOLD 16:52 → D.M2 17:42
PROVIDERS: Emergency Medicine; Family Medicine; Internal Medicine; Internal Medicine Nephrology; Physician Assistant; Specialist; Student in an Organized Health Care Education/Training Program; Surgery
PROC: 5A1D70Z Performance of Urinary Filtration, Intermittent, Less than 6 Hours Per Day (ICD-10-PCS; principal; 2017-10-09)
PROC: 0JBL0ZZ Excision of Right Upper Leg Subcutaneous Tissue and Fascia, Open Approach (ICD-10-PCS; 2017-11-09)
PROC: 02HV33Z Insertion of Infusion Device into Superior Vena Cava, Percutaneous Approach (ICD-10-PCS; 2017-11-09)
PROC: 02PY33Z Removal of Infusion Device from Great Vessel, Percutaneous Approach (ICD-10-PCS; 2017-11-09)
PROC: 037Y3ZZ Dilation of Upper Artery, Percutaneous Approach (ICD-10-PCS; 2017-11-09 12:56)
PROC: B51W1ZZ Fluoroscopy of Dialysis Shunt/Fistula using Low Osmolar Contrast (ICD-10-PCS; 2017-12-10)
PROC: 05733ZZ Dilation of Right Innominate Vein, Percutaneous Approach (ICD-10-PCS; 2017-12-17)
PROC: B5181ZZ Fluoroscopy of Superior Vena Cava using Low Osmolar Contrast (ICD-10-PCS; 2017-12-17)
PROC: 0JH63XZ Insertion of Tunneled Vascular Access Device into Chest Subcutaneous Tissue and Fascia, Percutaneous Approach (ICD-10-PCS; 2017-12-17)
PROC: B5181ZA Fluoroscopy of Superior Vena Cava using Low Osmolar Contrast, Guidance (ICD-10-PCS; 2017-12-17)
PROC: 02HV33Z Insertion of Infusion Device into Superior Vena Cava, Percutaneous Approach (ICD-10-PCS; 2017-12-17)
PROC: 0WHG43Z Insertion of Infusion Device into Peritoneal Cavity, Percutaneous Endoscopic Approach (ICD-10-PCS; 2017-12-30)
DX: A41.9 Sepsis, unspecified organism (principal); N18.6 End stage renal disease; E43 Unspecified severe protein-calorie malnutrition; R53.2 Functional quadriplegia; I12.0 Hypertensive chronic kidney disease with stage 5 chronic kidney disease or end stage renal disease; N25.81 Secondary hyperparathyroidism of renal origin; T85.618A Breakdown (mechanical) of other specified internal prosthetic devices, implants and grafts, initial encounter; A04.72 Enterocolitis due to Clostridium difficile, not specified as recurrent; E83.59 Other disorders of calcium metabolism; E11.22 Type 2 diabetes mellitus with diabetic chronic kidney disease; Z99.2 Dependence on renal dialysis; L89.152 Pressure ulcer of sacral region, stage 2; Z68.34 Body mass index [BMI] 34.0-34.9, adult; D47.3 Essential (hemorrhagic) thrombocythemia; Z66 Do not resuscitate; E83.39 Other disorders of phosphorus metabolism; D63.1 Anemia in chronic kidney disease; E11.610 Type 2 diabetes mellitus with diabetic neuropathic arthropathy; G25.3 Myoclonus; R19.5 Other fecal abnormalities; K62.89 Other specified diseases of anus and rectum